=== PATIENT | female | born 1945 | race African-American/Black ===

== ENCOUNTER 2025-01-23 00:04 | Inpatient (IN) | payer MEDICARE, SELFPAY ==
[2025-01-23] VITALS (20 sets, daily range): BP systolic 105–146; BP diastolic 45–72; PULSE 79–121; RESP 13–19; TEMP 36.9–38.3; O2SAT 92–98; BMI 28.3
--- NOTE | 2025-01-23 | ECG_ITS ---
Test Reason : WEAKNESS Blood Pressure : */* mmHG Vent. Rate : 102 BPM Atrial Rate : 102 BPM P-R Int : 152 ms QRS Dur : 88 ms QT Int : 362 ms P-R-T Axes : 59 -39 26 degrees QTcB Int : 471 ms Sinus tachycardia with Premature atrial complexes Left axis deviation Minimal voltage criteria for LVH, may be normal variant ( Husam product ) Abnormal ECG No previous ECGs available Referred By: Joe Martinez Electronically Signed By: OTILIO VELA MD
--- NOTE | ~2025-01-23 | XR_ITS ---
CLINICAL HISTORY: fever CHEST X-RAY FRONTAL VIEW COMPARISON: None provided. FINDINGS: A single frontal view of the chest was performed. Cardiac silhouette is accentuated by the portable technique. There is calcification within the thoracic aortic arch. The left lower lung is difficult to accurately assess due to the overlying heart shadow and bony structures. Faint increased density is noted laterally within the left lower lung. An infiltrate is not excluded. CT scan of the chest in the ER is advised for a more accurate assessment. What are thought to represent 2 subcentimeter overlapping calcified granulomas are noted in the right lower lung. Right lung is otherwise unremarkable. No pleural effusion. No pneumothorax. IMPRESSION: 1. Faint increased density is noted laterally within the left lower lung. An infiltrate is not excluded. CT chest in the ER is advised for a more accurate assessment. This document has been electronically signed by: Shaan Alarcon M.D. on 01/23/2025 02:05:31
--- NOTE | ~2025-01-23 | CT_ITS ---
CLINICAL HISTORY: fever, source unclear. Dialysis patient CT ABDOMEN AND PELVIS WITHOUT CONTRAST COMPARISON: Chest x-ray 01/22/2025. FINDINGS: Images of the lower lungs demonstrate mild scattered atelectatic changes bilaterally. There is no focal infiltrate in the left lower lung, as was questioned on the prior chest x-ray study. There are mild bronchiectatic changes bilaterally. A focal 2.7 cm fluid collection is noted within the soft tissues of the left breast on axial image 33. Small hiatal hernia is noted. Distal esophagus and stomach are underdistended which precludes accurate assessment. Lack of IV contrast lowers the sensitivity of the exam. No focal liver lesion. Liver is enlarged and measures 18.3 cm on coronal image 40. Cholelithiasis is noted, for example seen on axial image 303 of series 4. Apparent tiny area of high attenuation is noted in association with the common bile duct, seen only on axial image 317. Choledocholithiasis will need to be excluded. Apparent mild fullness of the pancreatic head is noted on axial image 40. No CT evidence of acute pancreatitis. The spleen is unremarkable. Thickening of the adrenal glands is noted. A few subcentimeter bilateral renal calculi are noted without hydronephrosis. No calculi in the ureters and urinary bladder. A 1.6 cm lesion in the left kidney measures above water density and is seen on axial image 349. This is nonspecific but might represent a proteinaceous cyst. A few left-sided renal cysts are suspected, for example measuring 2.1 cm on axial image 392. Urinary bladder is significantly underdistended which limits accurate assessment for wall thickening. Mild stranding is noted adjacent to the anterior aspect of the urinary bladder as seen on axial image 728. Correlation with urinalysis is advised. 3.4 cm left ovarian cystic lesion is noted on axial image 633. Uterus and adnexa are otherwise unremarkable. Calcific plaque is noted in the abdominal aorta. No evidence of an abdominal aortic aneurysm. No evidence of a bowel obstruction. No free air. No pericolonic inflammation. Colonic diverticula are noted without evidence of acute diverticulitis. Appendix is not definitively visualized. No lymphadenopathy or loculated fluid collection. No evidence of a bowel containing hernia. Bone windows demonstrate degenerative changes in the hips and visualized spine. IMPRESSION: 1. Mild atelectasis in the lower lungs. No focal infiltrate in the left lung, as was questioned on the prior chest x-ray study. 2. Cholelithiasis. An apparent tiny area of high attenuation is noted in association with the common bile duct, seen on only 1 image. Choledocholithiasis will need to be excluded. Follow-up nonurgent MRCP study is advised. 3. Apparent mild fullness of the pancreatic head is noted. Assessment is difficult due to the lack of IV contrast. This can be further assessed at the time of MRCP. 4. A 1.6 cm lesion in the left kidney measures above water density and is nonspecific but might represent a proteinaceous cyst. A follow-up nonurgent CT kidneys, without and with contrast, is advised to exclude a solid lesion. 5. Bilateral renal calculi without hydronephrosis. No calculi in the ureters and urinary bladder. 6. Mild stranding is noted adjacent to the anterior portion of the urinary bladder. Correlation with urinalysis is advised to exclude a urinary tract infection/cystitis. 7. A 3.4 cm left ovarian cystic lesion is noted. A follow-up nonurgent pelvic ultrasound is advised. 8. No evidence of a bowel obstruction or free air. No pericolonic inflammation. 9. A focal 2.7 cm fluid collection is noted within the soft tissues of the left breast. This is of uncertain age and significance, but might be related to a previous procedure. Correlation with patient history is advised. 10. Additional findings are detailed above. This document has been electronically signed by: Shaan Alarcon M.D. on 01/23/2025 03:54:18
--- NOTE | ~2025-01-23 | MR_ITS ---
CLINICAL HISTORY: ?choledocolithiasis, pancreatic fulllness on CT --- Additional Notes or Special Instructions: ESRD, non-contrast MRCP without gadolinium Comparison: CT/SR - CT ABDOMEN PELVIS WO IV CON - 01/23/25 02:21 EDT Findings: No bile duct dilatation or choledocholithiasis. Common bile duct 4 mm diameter. There are multiple dependent stones within the gallbladder. Normal anatomy of the pancreatic duct. No dilatation of the duct or filling defects. No peripancreatic edema. No abnormal signal seen within the pancreas. Symmetric bilateral perinephric stranding present. There are 3 cysts within the left kidney, one measuring 1.2 cm in diameter, another measuring 2.5 cm in diameter, and a 3rd lesion in the superior kidney measuring 1.8 cm. Both kidneys are mildly atrophic. There is no hydronephrosis. The spleen is normal in size. No focal liver lesion seen. Liver is enlarged globally. Incidental note of 3.0 x 2.5 cm duodenal diverticulum emanating from the 3rd portion of the duodenum. There is a cystic lesion in the region of the left ovary measuring 3.4 x 3.2 cm which appears simple without internal septations or solid nodules. IMPRESSION: 1. No choledocholithiasis. 2. Cholelithiasis. 3. Normal appearance of the pancreas. 4. 3.4 cm simple appearing cystic lesion in the region of the left ovary. 5. There are 3 left renal cysts. This document has been electronically signed by: Saul Loeng MD on 01/23/2025 21:00:27
--- NOTE | 2025-01-23 00:16 | ED_ITS ---
HPI - General Adult General Chief complaint: Weakness Stated complaint: increased weakness , 1x dialysis Time Seen by Provider: 01/23/25 00:16 History of Present Illness ED Provider: Juan LIU narrative: The patient is a 79-year-old woman with a history hypertension, hyperlipidemia, type 2 diabetes, end-stage renal disease on hemodialysis (Tuesdays, , and Saturdays), and a history of breast cancer. The patient's daughter called 911 tonight because she felt that the the patient seemed very weak and shaky. The patient had dialysis yesterday on Monday. Apparently she seemed relatively stable at dialysis. The daughter thinks that she might has been somewhat weak and tired yesterday evening but the daughter could not identify any definite problem. This morning the patient was sleeping peacefully and the daughter went to work. Tonight when the daughter got home she was concerned that the daughter seemed weak and shaky and called 911. The patient does not have any specific complaints. She admits to feeling weak. She denies headache. She denies chest pain. She denies shortness of breath. There has been no significant cough. She denies abdominal pain. No urinary symptoms. She says she rarely urinates. Related Data Allergies Allergy/AdvReac Type Severity Reaction Status Date / Time No Known Allergies Allergy Verified 01/23/25 00:22 Review of Systems 2 Review of Systems: Yes all other systems are reviewed and are negative [facility] [place] Past Medical History Medical History (Updated 01/23/25 @ 06:27 by Noemí Brewster PA-C) Tobacco use disorder History of breast cancer ESRD (end stage renal disease) on dialysis T2DM (type 2 diabetes mellitus) HLD (hyperlipidemia) HTN (hypertension) Social History Social History Patient Tobacco Use Status: Current everyday Tobacco user Smoked in Last 30 Days: Yes Use of substances other than those prescribed or required for medical reasons: No Advance Directives: No Advance Directives Information Provided: Yes Nutrition Risks: No Nutritional Risk Physical Exam ED Vital Signs: Vital Signs - 24 hr 01/23/25 00:16 01/23/25 00:26 01/23/25 00:29 Temperature 101.0 F H 101.0 F H Pulse Rate 106 H 106 H 100 Respiratory Rate 16 16 13 Blood Pressure 127/51 L 127/51 L 105/48 L Pulse Oximetry 96 96 Oxygen Delivery Method Room Air Room Air Oxygen Flow Rate 09/11/25 00:43 01/23/25 01:23 01/23/25 01:32 Temperature 99.2 F Pulse Rate 100 95 Respiratory Rate 16 19 Blood Pressure 127/61 122/51 L Pulse Oximetry 95 92 Oxygen Delivery Method Room Air Oxygen Flow Rate 01/23/25 01:44 01/23/25 01:44 01/23/25 01:59 Temperature Pulse Rate 92 92 85 Respiratory Rate 18 Blood Pressure 137/54 L 137/51 L 130/50 L Pulse Oximetry Oxygen Delivery Method Oxygen Flow Rate 01/23/25 02:10 01/23/25 02:38 01/23/25 02:43 Temperature 99.1 F 99.1 F Pulse Rate 81 86 86 Respiratory Rate 15 18 Blood Pressure 129/48 L 111/45 L 135/55 L Pulse Oximetry 98 95 Oxygen Delivery Method Nasal Cannula Room Air Oxygen Flow Rate 2 01/23/25 02:51 01/23/25 03:13 01/23/25 03:48 Temperature Pulse Rate 86 84 79 Respiratory Rate Blood Pressure 120/50 L 112/45 L 125/52 L Pulse Oximetry Oxygen Delivery Method Room Air Room Air Oxygen Flow Rate 01/23/25 03:56 01/23/25 05:34 Temperature 98.5 F Pulse Rate 81 Respiratory Rate 14 Blood Pressure 119/50 L Pulse Oximetry 95 Oxygen Delivery Method Room Air Oxygen Flow Rate BMI result Body Mass Index 28.3 Const Other: The patient is a well-developed but chronically ill-appearing 79-year-old. She is awake and alert. She has a vague demeanor but does not seem frankly confused. She does not appear overtly uncomfortable or in distress. HENMT Other: The face is symmetrical. ?Mucous membranes moist. Eyes Other: Pupils are round equal, conjunctivae are clear, extraocular movements intact General: appearance normal, both eyes and all related structures Neck Other: No apparent neck swelling or asymmetry. No significant tenderness. The neck seems supple. No nuchal rigidity. Resp Other: No obvious increased work of breathing. There were possibly some very mild crackles at the left base. No jason wheezing. Breath sounds were equal. Cardio Other: No murmur heard Rate: tachycardic Rhythm: regular rhythm Heart sounds: S1 normal heart sound present and S2 normal heart sound present GI Other: The abdomen is soft and nontender Skin Other: The patient has a dialysis fistula in her left upper arm. Skin is otherwise unremarkable. Neuro Other: The patient is awake and alert with a fairly clear mental status although she seems fatigued. Cranial nerves are grossly intact. She seems to have symmetrical tone in her extremities. No obvious lateralizing findings. Extrem Other: There is a dialysis shunt in the left upper arm. No significant peripheral edema. Medications Administered Generic Name Dose Route Start Last Admin Trade Name Freq PRN Reason Stop Dose Admin Heparin Sodium (Porcine) 5,000 unit 01/23/25 06:30 01/23/25 06:32 Heparin Sodium,Porcine 5,000 Unit/Ml Vial SUBCUT 5,000 unit Q12H SASKIA Administration Discontinued Medications Generic Name Dose Route Start Last Admin Trade Name Freq PRN Reason Stop Dose Admin Ceftriaxone Sodium 2 gm 01/23/25 01:24 01/23/25 01:38 Ceftriaxone Sodium 2 Gm Vial IVPUSH 01/23/25 01:25 2 gm ONCE ONE Administration Acetaminophen 1,000 mg in 100 mls @ 400 mls/hr 01/23/25 00:40 01/23/25 01:03 Ofirmev IV 01/23/25 00:54 Infused ONCE ONE Infusion Sodium Chloride 1,000 mls @ 999 mls/hr 01/23/25 00:45 01/23/25 02:40 Ns IV 01/23/25 01:45 Infused .Q1H1M SASKIA Infusion Azithromycin 500 mg/ Sodium 250 mls @ 125 mls/hr 01/23/25 03:24 01/23/25 06:25 Chloride IV 01/23/25 05:23 Infused ONCE ONE Infusion Medical Decision Making Medical Decision Making [facility] Narrative: The patient is a 79-year-old woman who was a dialysis patient. She gets dialysis on Tuesdays, , and Saturdays. The patient's daughter called 911 tonight because the patient seemed much weaker than usual and possibly having some shaking chills. On arrival here the patient was found to have a rectal temperature of 101.0 degrees. She did not have any obvious signs of infection on exam or by history and I thought initially that this might be a viral syndrome. Blood cultures were obtained and she was given IV acetaminophen. Labs were sent. Her initial lactate came back at 2.1. At that point I had concerns for the possibility of sepsis. She was given empiric antibiotics, 2 g of ceftriaxone. Her chest x-ray was read as possibly suggesting a left lower lobe pneumonia and so she was also given 500 mg of IV azithromycin. Given that there had not been a lot of history of cough I was not certain that pneumonia was in fact the diagnosis. We did a bladder scan initially to see if there was any likelihood that we could obtain urine by catheterization. A bladder scan did not suggest he had any significant amount of urine. The patient was given 1 L of IV fluids in addition to antibiotics. A CT scan of the abdomen and pelvis was done to look for a possible source of infection. This imaging included the lower lung to. The radiologist who read the CT felt that the findings in the left lower lung was more consistent with atelectasis than a pneumonia (although I felt she had some crackles at the left base). There was some volume of urine apparent on the CAT scan. At that point I ordered a straight catheterization to obtain a urine sample. The urine sample is potentially consistent with a urinary tract infection although it is possible she could simply have an abnormal urinalysis because of her infrequent urination. In any event the patient was treated with the antibiotics and IV fluids. A repeat lactate was normal at 1.7. The CT scan of the abdomen and pelvis showed multiple equivocal findings of uncertain significance. The patient will be admitted to the medical service for further management. Lab Data 01/23/25 00:55 01/23/25 00:55 Labs: Lab Results 01/23/25 01/23/25 01/23/25 Range/Units 00:55 03:23 04:31 WBC 8.1 (4.8-10.8) X10*3/uL RBC 3.64 L (4.20-5.50) X10*6/uL Hgb 11.4 L (12.0-16.0) g/dl Hct 32.1 L (37.0-47.0) % MCV 88.2 (80.0-98.0) fL MCH 31.3 (27.0-33.0) pg MCHC 35.5 H (31.0-35.0) g/dl RDW 14.4 (11.0-16.0) % Plt Count 175 (160-400) X10*3/uL MPV 9.5 (9.4-12.3) fL Immature Gran % (Auto) 0.4 (0.0-0.4) % Neut % (Auto) 78.2 H (45-73) % Lymph % (Auto) 9.6 L (20-40) % [place] % (Auto) 10.7 (2-11) % Eos % (Auto) 0.7 (0-4) % Baso % (Auto) 0.4 (0-2) % Lymph # (Auto) 0.8 L (1.2-4.9) X10*3/uL [place] # (Auto) 0.9 (0.1-1.2) X10*3/uL Eos # (Auto) 0.1 (0.0-0.4) X10*3/uL Baso # (Auto) 0.0 (0.0-0.2) X10*3/uL Abs Immat Gran (auto) 0.03 (0.00-0.03) X10*3/uL Absolute Neuts (auto) 6.4 (2.0-8.3) x10*3/uL Absolute Nucleated RBC 0.000 (0.0-0.012) X10*3/uL Nucleated RBC % (auto) 0.0 (0.0-0.2) /100WBC PT 11.2 (10.9-12.4) SEC INR 1.0 (0.9-1.1) Sodium 138 (135-145) mmol/L Potassium 3.9 (3.3-5.1) mmol/L Chloride 96 (96-108) mmol/L Carbon Dioxide 26 (22-29) mmol/L Anion Gap 20 (12-20) BUN 43 H (9-16) mg/dL Creatinine 9.63 H* (0.5-1.4) mg/dL Estim Creat Clear Calc 4.5 Estimated GFR 4 Random Glucose 324 H (60-115) mg/dL Lactic Acid 2.1 H* (0.5-2.0) mmol/L Lactic Acid F/U @ 2Hr 1.7 (0.5-2.0) mmol/L Calcium 8.5 (8.4-10.2) mg/dL Magnesium 1.9 (1.6-2.6) mg/dL Total Bilirubin 0.6 (0.0-1.0) mg/dL AST 16 (5-31) U/L ALT 16 (0-31) U/L Alkaline Phosphatase 76 (39-117) U/L C-Reactive Protein 2.84 H (< or = 0.50) mg/dL Total Protein 7.0 (6.5-8.0) g/dL Albumin 3.7 (3.5-5.0) g/dL Urine Color Yellow Urine Appearance Turbid Urine pH 6.5 (5.0-9.0) Ur Specific [place] 1.015 (1.005-1.025) Urine Protein 300 (3+) H (Neg-Trace) mg/dL Urine Glucose (UA) 500 H (Negative) mg/dL Urine Ketones Negative (Negative) mg/dL Urine Blood Small (1+) H (Negative) Urine Nitrite Negative (Negative) Ur Leukocyte Esterase Large (3+) H (Negative) Urine RBC 0-2 (0-2) /HPF Urine WBC >50 (0-5) /HPF Ur Squamous Epith Cells >20 (0-2) /HPF Urine Bacteria 2+ (None Seen) Hyaline Casts 3-5 (0-2) /LPF Urine Yeast Present Influenza Type A (PCR) NEGATIVE (Negative) Influenza Type B (PCR) NEGATIVE (Negative) RSV RNA Qual (PCR) NEGATIVE (Negative) SARS-CoV-2 RNA (RT-PCR) NEGATIVE (Negative) Independent Interpretation I performed an independent interpretation of an: EKG Interpretation: EKG at 00:37 shows sinus tachycardia at 102 beats per minute. There is a left axis deviation. No definite acute ischemic changes. No old EKGs available for comparison. Discharge Plan Discharge Clinical Impression: Fever, Weakness, Abnormal urinalysis, ESRD (end stage renal disease) on dialysis Patient Disposition: Admitted As Inpatient
[2025-01-23 01:02] LABS: MANUAL DIFF FLAG NO
[2025-01-23 01:04] LABS: Hematocrit 32.1 % (37.0-47.0); Hemoglobin 11.4 g/dl (12.0-16.0); Imm Gran Abs Auto 0.03 X10*3/uL (0.00-0.03); Imm Gran Pct Auto 0.4 % (0.0-0.4); Lymphocytes Absolute Auto 0.8 X10*3/uL (1.2-4.9); Mean Corpuscular HGB Conc 35.5 g/dl (31.0-35.0); Mean Corpuscular Hemoglobin 31.3 pg (27.0-33.0); Mean Corpuscular Volume 88.2 fL (80.0-98.0); NRBC Abs Auto 0.000 X10*3/uL (0.0-0.012); NRBC Pct Auto 0.0 /100WBC (0.0-0.2); Platelet Count 175 X10*3/uL (160-400); Red Blood Count 3.64 X10*6/uL (4.20-5.50); White Blood Count 8.1 X10*3/uL (4.8-10.8)
[2025-01-23 01:10] LABS: INTERNATIONAL NORM RATIO 1.0 (0.9-1.1); Prothrombin Time 11.2 SEC (10.9-12.4)
[2025-01-23 01:17] LABS: Magnesium 1.9 mg/dL (1.6-2.6)
--- OUTSIDE RECORDS SUMMARY | 2025-01-23 01:21 | XMS_ITS | Clinical Summary ---
Author Organization [facility], Address [address] [place] [address] Phone Care Team Providers Care Exhibit Electrician Name Role Phone Teresa Scales Primary Care Provider [phone] Allergies No known active allergies Medications Cholecalciferol 125 MCG (5000 UT) tablet Take by mouth Activ e Dulaglutide (Trulicity) 4.5 MG/0.5ML solution auto-injector Inject under the skin Active amLODIPine (NORVASC) 10 MG tablet Take 10 mg by mouth 1 (one) time each day Active atorvastatin (LIPITOR) 20 MG tablet Take 20 mg by mouth 1 (one) time each day Active aspirin (ST KWAN) 81 MG EC tablet Take 81 mg by mouth 1 (one) time each day Active anastrozole (ARIMIDEX) 1 MG chemo tablet Take 1 mg by mouth 1 (one) time each day Swallow whole with a drink of water. Active clopidogrel (PLAVIX) 75 MG tablet Take 75 mg by mouth 1 (one) time each day Active famotidine (PEPCID) 20 MG tablet Take 20 mg by mouth in the morning and 20 mg in the evening. Active gabapentin (NEURONTIN) 100 MG capsule Take 100 mg by mouth 1 (one) time each day Active insulin lispro protamine-insul in lispro (HumaLOG 75-25) (75-25) 100 UNIT/ML suspension Inject under the skin 2 (two) times a day before meals Active hydrALAZINE 25 MG tablet Take 25 mg by mouth in the morning and 25 mg in the evening and 25 mg before bedtime. Active furosemide (LASIX) 40 MG tablet Take 40 mg by mouth in the morning and 40 mg in the evening. Active losartan (COZAAR) 50 MG tablet Take 50 mg by mouth 1 (one) time each day Active meclizine (ANTIVERT) 25 MG tablet Take 25 mg by mouth 3 (three) times a day if needed for dizziness Active polyethylene glycol (GLYCOLAX) 17 g packet Take 17 g by mouth 1 (one) time each day Active Multiple Vitamin (multivitamin) tablet Take 1 tablet by mouth 1 (one) time each day Active Cyanocobalamin (Vitamin B 12) 500 MCG tablet Take by mouth A ctive sevelamer carbonate (RENVELA) 0.8 g packet Take 0.8 g by mouth in the morning and 0.8 g at noon and 0.8 g in the evening. Take with meals. Active Active Problems Problem Noted Date Diagnosed Date Obese class II 04/18/2024 End stage renal disease 03/26/2024 Essential hypertension 03/26/2024 Carotid artery stenosis 03/26/2024 Type 2 diabetes mellitus without complication Encounters Date Type Department Care Team Description 01/21/2025 Treatment [facility], [address] [place] [address] Khanh Ramirez MD End stage renal disease; Dependence on renal dialysis; Type 2 diabetes mellitus with diabetic nephropathy 01/16/2025 Orders Only [facility] [address] [address] Guillermo Guillory, 01/14/2025 Treatment [facility], [address] [place] [address] Paluine Macdonald FNP-C End stage renal disease; Dependence on renal dialysis 01/09/2025 Orders Only [facility] [address] [address] Guillermo Guillory, 01/07/2025 Orders Only [facility] [address] [address] Guillermo Guillory, 01/04/2025 Treatment [facility] [address] [place] [address] Pauline Macdonald, CLINCHING MACHINE OPERATOR-C End stage renal disease; Dependence on renal dialysis 01/02/2025 Treatment [facility] [address] [place] [address] Khanh Ramirez MD End stage renal disease; Dependence on renal dialysis; Type 2 diabetes mellitus with diabetic nephropathy 01/02/2025 Orders Only [facility] [address] [address] Guillermo Guillory, DO 12/26/2024 Orders Only [facility] [address] [address] Guillermo Guillory, DO 12/26/2024 Treatment [facility], [address] [place] [address] Khanh Ramirez MD End stage renal disease; Dependence on renal dialysis; Type 2 diabetes mellitus with diabetic nephropathy 12/19/2024 Orders Only [facility] [address] [address] Guillermo Guillory, DO 12/17/2024 Treatment [facility], [address] [place] [address] Pauline Macdonald, CLINCHING MACHINE OPERATOR-C End stage renal disease; Dependence on renal dialysis 12/12/2024 Orders Only [facility] [address] [address] Guillermo Guillory, DO 12/05/2024 Orders Only [facility] [address] [address] Guillermo Guillory, DO 11/30/2024 Orders Only [facility] [address] [address] Guillermo Guillory, DO 11/22/2024 Documentation Only [facility], [address] [place] [address] Gisel Yin [place] 11/21/2024 Orders Only [facility] [address] [address] Guillermo Guillory, DO 11/21/2024 Treatment [facility] [address] [place] [address] Khanh Ramirez MD End stage renal disease; Dependence on renal dialysis; Type 2 diabetes mellitus with diabetic nephropathy 11/19/2024 Treatment [facility] [address] [place] [address] Pauline Macdonald, CLINCHING MACHINE OPERATOR-C End stage renal disease; Dependence on renal dialysis 11/14/2024 Orders Only [facility] [address] [address] Guillermo Guillory, DO 11/12/2024 Treatment [facility] [address] [place] [address] Pauline Macdonald, CLINCHING MACHINE OPERATOR-C End stage renal disease; Dependence on renal dialysis 11/07/2024 Orders Only [facility] [address] [place] [address] Guillermo Guillory, DO 10/31/2024 Orders Only [facility] [address] [address] Guillermo Guillory, DO 10/29/2024 Orders Only [facility] [address] [address] Guillermo Guillory, DO 10/29/2024 Treatment [facility] [address] [place] [address] Pauline Macdonald, CLINCHING MACHINE OPERATOR-C End stage renal disease; Dependence on renal dialysis; Type 2 diabetes mellitus with diabetic nephropathy 10/26/2024 Treatment [facility] [address] [place] [address] Pauline Macdonald, HARJINDER End stage renal disease; Dependence on renal dialysis; Type 2 diabetes mellitus with diabetic nephropathy 10/24/2024 Treatment [facility], [address] [place] [address] Khanh Ramirez MD End stage renal disease; Dependence on renal dialysis; Type 2 diabetes mellitus with diabetic nephropathy 10/24/2024 Orders Only [facility] [address] [place] [phone] Guillermo Guillory DO from Last 3 Months Social History Tobacco Use Types Packs/Day Years Used Date Smoking Tobacco: Former Cigarettes Smokeless Tobacco: Never Tobacco Cessation:Counseling Given: Not Answered Alcohol Use Standard Drinks/Week Comments Never 0 (1 standard drink = 0.6 oz pur e alcohol) Comments Unknown Sex and Gender Information Value Date Recorded Sex Assigned at Not on file Legal Sex Female 10:33 AM EST Gender Identity Not on file Sexual Orientation Not on file Last Filed Vital Signs Vital Sign Reading Time Taken Comments Blood Pressure 137/80 04/19/2024 8:30 AM EST Pulse 106 04/19/2024 8:30 AM EST Temperature 36.5 C (97.7 F) 04/19/2024 8:30 AM EST Respiratory Rate 18 04/19/2024 8:30 AM EST Oxygen Saturation 92% 04/19/2024 8:30 AM EST Inhaled Oxygen Concentration - - Weight 97.1 kg (214 lb) 04/19/2024 8:30 AM EST Height 162.6 cm (5' 4 ) 04/19/2024 8:30 AM EST Body Mass Index 36.73 04/19/2024 8:30 AM EST Plan of Treatment Upcoming Encounters Date Type Department Care Team (Late st Contact Info) Description 02/07/2025 10:00 AM EDT Procedure visit [facility] [address] [place] [id number] Health Maintenance Due Date Last Done Comments Pneumococcal Vaccine: 50+ Ye ars (1 of 2 - PCV) 1964 Hepatitis B Vaccine (1 of 5 - Risk Dialysis 4-dose series) 1965 Diabetes: Ophthalmology Exam 03/26/2024 Diabetes: Pedal Pulse Checked 03/26/2024 Diabetes: Sensory Foot Exam 03/26/2024 Diabetes: Visual Foot Exam 03/26/2024 Influenza Vaccine (#1) 2025 Diabetes: Hemoglobin A1C 03/02/2025 025, 08/29/2024, 05/30/2024 Procedures Procedure Name Priority Date/Time Associated Diagnosis Comments SPECTRA SARAH LAB RESULTS Routine 01/16/2025 HD KINETICS Routine 01/16/2025 CHEMISTRY Routine 01/16/2025 POST CHEMISTRY Routine 01/16/2025 HEMATOLOGY Routine 01/16/2025 HEMATOLOGY Routine 01/09/2025 CHEMISTRY Routine 01/07/2025 IMMUNO CHEMISTRY Routine 01/02/2025 CHEMISTRY Routine 01/02/2025 HEMATOLOGY Routine 01/02/2025 CHEMISTRY Routine 01/02/2025 HEMATOLOGY Routine 12/26/2024 SPECTRA SARAH LAB RESULTS Routine 12/19/2024 HD KINETICS Routine 12/19/2024 POST CHEMISTRY Routine 12/19/2024 CHEMISTRY Routine 12/19/2024 HEMATOLOGY Routine 12/19/2024 HEMATOLOGY Routine 12/12/2024 HEMATOLOGY Routine 12/05/2024 SPECIAL CHEMISTRY Routine 11/30/2024 CHEMISTRY Routine 11/30/2024 IMMUNO CHEMISTRY Routine 11/30/2024 HEMATOLOGY Routine 11/30/2024 CHEMISTRY Routine 11/30/2024 HEMATOLOGY Routine 11/21/2024 SPECTRA SARAH LAB RESULTS Routine 11/14/2024 HD KINETICS Routine 11/14/2024 POST CHEMISTRY Routine 11/14/2024 CHEMISTRY Routine 11/14/2024 HEMATOLOGY Routine 11/14/2024 HEMATOLOGY Routine 11/07/2024 IMMUNO CHEMISTRY Routine 10/31/2024 CHEMISTRY Routine 10/31/2024 HEMATOLOGY Routine 10/31/2024 CHEMISTRY Routine 10/31/2024 CHEMISTRY Routine 10/29/2024 HEMATOLOGY Routine 10/24/2024 from Last 3 Months Results * HD KINETICS (01/16/2025) Only the most recent of3 resultswithin the time period is included. % Urea Reduction 78 65 - 80 % Explorys 01/16/2025 01/17/2025 9:2 5 AM EDT Narrative CARMENZA - 01/17/2025 Unless otherwise specified, test(s) performed at: [facility], [address] [place] [id number] PRESS SET UP PERSON: Dale Menard M.D. For any questions, please call customer service at FREQUENCY:OTHER Resulting Agency Comment Specimen source: Plasma Guillermo [facility] LAB BLOOD ORDERABLES Final Resu lt Performing Organization Address [facility] de Phone Number Float: [place] See order comments or contact performing lab Unknown, [place] * POST CHEMISTRY (01/16/2025) Only the most recent of3 resultswithin the time period is included. BUN Post Dialysis 11 6 - 19 mg/dL [facility] 01/16/2025 01/17/2025 9:2 5 AM EDT Narrative SPECTRAE - 01/17/2025 Unless otherwise specified, test(s) performed at: [facility], [address] [place], [place] [id number] PRESS SET UP PERSON: Dale Menard M.D. For any questions, please call customer service at FREQUENCY:OTHER Resulting Agency Comment Specimen source: Plasma [facility] BLOOD ORDERABLES Final Resu Performing Organization Address [facility] de Phone Number Float: [place] See order comments or contact performing lab Unknown, [place] * (ABNORMAL) HEMATOLOGY (01/16/2025) Only the most recent of13 resultswithin the time period is included. Hemoglobin 11.6(L) 12.0 - 16.0 g/dL [facility] Hemoglobin x 3 34.8(L) 36.0 - 48.0 % [facility] 01/16/2025 01/17/2025 9:0 1 AM EDT Narrative SPECTRAE - 01/17/2025 Unless otherwise specified, test(s) performed at: [facility], [address] [place] [id number] PRESS SET UP PERSON: Dale Menard M.D. For any questions, please call customer service at FREQUENCY:OTHER Resulting Agency Comment Specimen source: Blood Dapt LAB BLOOD ORDERABLES Final Resu Performing Organization Address [facility]/State/ZIP Co de Phone Number [facility] See order comments or contact performing lab Unknown, [place] * (ABNORMAL) Spectrae Chemistry (01/16/2025) Only the most recent of11 resultswithin the time period is included. BUN 50(H) 6 - 19 mg/dL [facility] 01/16/2025 01/17/2025 10: 08 AM EDT Narrative SPECTRAE - 01/17/2025 Unless otherwise specified, test(s) performed at: [facility], [address] [place] [address] PRESS SET UP PERSON: Dale Menard M.D. For any questions, please call customer service at FREQUENCY:OTHER Resulting Agency Comment Specimen source: Serum Guillermo Guillory DO LAB BLOOD ORDERABLES Final Resu lt Performing Organization Address City/[facility] [[email or web address]] Co de Phone Number [facility] See order comments or contact performing lab Unknown, [place] * Spectra SARAH Lab Results (01/16/2025) Only the most recent of3 resultswithin the time period is included. Pathologist [facility] WSTDKT/V 2.6 [facility] eKt/V Gotch 1.60 [facility] e Center eKt/V ([place]) 1.56 [facility] Center PCR 59.95 [facility] Center spKt/V (Daugirdas II) 1.78 [facility] Center nPCR_HD 0.99 [facility] Center spKt/V Gotch 1.84 [facility] eKdrt/V 1.60 [facility] eNPCR 0.93 [facility] 01/16/2025 01/16/2025 [facility] Ordering Provider LAB BLOOD ORDERABLES Final Result [facility] Contact Performing lab Unknown, [place] * IMMUNO CHEMISTRY (01/02/2025) Only the most recent of3 resultswithin the time period is included. Hep B Surface Ag Negative Negative [facility] 01/02/2025 01/03/2025 10: 14 AM EDT Narrative Resulting Agency Comment Specimen source: Serum Guillermo Guillory [facility] LAB BLOOD ORDERABLES Final Resu lt Float: [place] See order comments or contact performing lab Unknown, [place] * (ABNORMAL) SPECIAL CHEMISTRY (11/30/2024) Hemoglobin A1C 6.1(H) 4.8 - 5.9 % [facility] 11/30/2024 12/03/2024 9:2 1 AM EDT Narrative SPECTRAE - 12/03/2024 Unless otherwise specified, test(s) performed at: [facility] [address] PRESS SET UP PERSON: Dale Menard M.D. For any questions, please call customer service at FREQUENCY:MONTHLY Resulting Agency Comment Specimen source: Blood Guillermo Guillroy LAB BLOOD BANK TEST ORDERABLES Final Result Performing Organization Address City/[facility]/ZIP Co de Phone Number Float: [place] See order comments or contact performing lab Unknown, [place] from Last 3 Months Insurance [employer] MCR Adv PPO [phone]) Care Teams Exhibit Electrician Relationship Specialty Start Date End Date [place] Kinney [address] [id number] PCP - General 03/27/24
--- OUTSIDE RECORDS SUMMARY | 2025-01-23 01:21 | XMS_ITS | Encounter Summary ---
Author Organization [facility] Address [address] [place] [address] Phone Care Team Providers Care Cop Examiner Name Role Phone Teresa Scales Primary Care Provider [phone] Encounter Details Date Type Department Care Team (Late st Contact Info) Description 11/22/2024 Documentation Only [facility] [address] [place] [address] Gisel Yin [place] [address] [place] [phone] Social History Tobacco Use Types Packs/Day Years Used Date Smoking Tobacco: Former Cigarettes Smokeless Tobacco: Never Alcohol Use Standard Drinks/Week Comments Never 0 (1 standard drink = 0.6 oz pur e alcohol) Comments Unknown Sex and Gender Information Value Date Recorded Sex Assigned at Not on file Legal Sex Female 10:33 AM EST Gender Identity Not on file Sexual Orientation Not on file documented as of this encounter Plan of Treatment Upcoming Encounters Date Type Department Care Team (Late Contact Info) Description 02/07/2025 10:00 AM EDT Procedure visit [facility] - [facility] [address] [place] [address] documented as of this encounter Visit Diagnoses Not on filedocumented in this encounter Care Teams Cop Examiner Relationship Specialty Start Date End Date Teresa Scales [address] [facility] [address] [place], [place] [id number] PCP - General 03/27/24 documented as of this encounter
--- OUTSIDE RECORDS SUMMARY | 2025-01-23 01:21 | XMS_ITS | Encounter Summary ---
Author Organization [facility], Address [address] [place] [address] Phone Care Team Providers Care Transitional Studies Instructor Name Role Phone Teresa Scales Primary Care Provider [phone] Encounter Details Date Type Department Care Team (Late st Contact Info) Description 01/21/2025 Treatment [facility], [address] [place] [address] Naya Juarez MD [address] [place] [address] [place] [id number] End stage renal disease; Dependence on renal dialysis; Type 2 diabetes mellitus with diabetic nephropathy Social History Tobacco Use Types Packs/Day Years [...] on file documented as of this encounter Miscellaneous Notes * Dialysis Note - Naya Juarez MD - 01/21/2025 12:00 AM EDT Patient: Alessandra King : 1945 Note Type: Dialysis Rounds-Comp Service Date: 01/21/2025 This patient was personally seen [id number] for a complete visit as part of routine monthly dialysis care for end stage renal disease. Primary cause of renal failure: E11.21 - Type 2 diabetes mellitus with diabetic nephropathy Attending Glass Production Machine Operator: NAYA JUAREZ MD Dialysis Location: [facility] Schedule: Shift: 2 OVERVIEW COMMENTS: S/P AVG placement. Doing well. [facility] MEDICATIONS [facility] anastrozole 1 mg tablet Take 1 tablet by mouth once a day. [.] aspirin 81 mg tablet,delayed release (DR/EC) 1 tablet by mouth twice a day. [.] atorvastatin 20 mg tablet Take 1 tablet by mouth every night. [.] clopidogrel 75 mg tablet Take 1 tablet by mouth once a day. famotidine 20 mg tablet 1 tablet by mouth every morning. gabapentin 100 mg capsule Take 1 capsule by mouth every night. Humalog Mix 75-25(U-100)Insuln 100 unit/mL (75-25) suspension 15 unit subcutaneously once a day. [in am] Humalog Mix 75-25(U-100)Insuln 100 unit/mL (75-25) suspension 5 unit subcutaneously once a day. [in pm] lorsartan 100 tab Take 1/2 tablet by mouth as directed. Miralax 17 gram powder in packet 1 packet by mouth once a day. multivitamin tablet 1 tablet by mouth once a day. Sevelamer Carbonate Powder 2.4 g packet Take 2 Packet By Mouth Three times a day With Meals. Trulicity 4.5 mg/0.5 mL pen injector 1 pen injector subcutaneously once a week. [on .] Vitamin D3 125 mcg (5,000 unit) tablet 1 tablet by mouth once a day. Current MedReview Allergies Allergen: No Known Allergies Allergen: No Known Drug Allergies Allergen: No Known Food Allergies DIALYSIS PRESCRIPTION Treatment Data Treatment Date: 01/21/2025 started at: 10:22 AM Dialysate / Machine Temp (prescribed): 36.0*C Dialysate / Machine Temp (actual): 36.0*C BFR (prescribed): 450 BFR (actual): 450 DFR (prescribed): Manual 800 DFR (actual): 800 Prescribed Time: 04:00 EDW (kg): 88.0 Dialyzer: FX CorAL 60 Dialysate: 2.0 K, 2.50 Ca, 1.0 Mg, 100 Dextrose ([id number]) Sodium: 137 Bicarb: 35 Pre Dialysis Vitals Pre BP Sit: 161/75 Pre Wt (kg): 90.8 EDW Deviation (kg): 2.8 Temp: 98.1*F Current Dialysis Vitals BP Sit: 134/63 AP/LABOURERS: 190/236 Pulse: 95 TREATMENT MEDICATIONS ORDERS Heparin Sodium (Porcine) 1,000 Units/mL Systemic 500 units IVP Every Treatment 03/16/2024 - 03/15/2025 Heparin Sodium (Porcine) 1,000 Units/mL Systemic 2000 units IVP Every Treatment 03/16/2024 - 03/15/2025 Iron Sucrose (Venofer) 50 mg IVP 1X Week During Dialysis 09/05/2024 - 09/04/2025 Vitamin D (Calcitriol) Oral 0.75 mcg ORAL Every Treatment 10/10/2024 - 10/09/2025 BP AND FLUID ASSESSMENT Post BP Sit 132/58 - 01/18/2025 108/56 - 01/16/2025 124/65 - 01/14/2025 Post Wt (kg) 88.5 - 01/18/2025 88.2 - 01/16/2025 88.0 - 01/14/2025 EDW (kg) 88.0 - 01/18/2025 88.0 - 01/16/2025 88.0 - 01/14/2025 Deviation (kg) 0.5 - 01/18/2025 0.2 - 01/16/2025 0.0 - 01/14/2025 ADEQUACY ASSESSMENT spKt/V (Daugirdas II) 1.78 (01/16/25) 1.74 (12/19/24) 1.94 (11/14/24) eKdrt/V 1.60 (01/16/25) 1.52 (12/19/24) 1.71 (11/14/24) % Urea Reduction 78 (01/16/25) 78 (12/19/24) 81 (11/14/24) BUN 50 (01/16/25) 41 (12/19/24) 48 (11/14/24) BUN Post Dialysis 11 (01/16/25) 9 (12/19/24) 9 (11/14/24) Creatinine 10.48 (01/02/25) 14.96 (11/30/24) 10.99 (10/31/24) Bicarbonate (CO2) 25 (01/02/25) 22 (11/30/24) 24 (10/31/24) Sodium 141 (01/02/25) 139 (11/30/24) 143 (10/31/24) Missed Treatments 0 - Last 30 days 3 - Last 60 days Most recently missed on 11/28/2024 ACCESS ASSESSMENT AVGraft Synthetic - Standard (PTFE) Left Upper Arm Active (In Use) - 06/13/2024 Placed - 05/17/2024 Access Flow 895 (01/14/25) 873 (12/28/24) 896 (12/14/24) ANEMIA ASSESSMENT Hemoglobin 11.6 (01/16/25) 11.6 (01/09/25) 10.6 (01/02/25) Iron Saturation (TSat) 45 (01/02/25) 54 (11/30/24) 49 (10/31/24) Ferritin 336 (01/02/25) 706 (11/30/24) 544 (10/31/24) Iron 104 (01/02/25) 119 (11/30/24) 117 (10/31/24) TIBC 233 (01/02/25) 222 (11/30/24) 241 (10/31/24) Reticulocyte Hemoglobin 32.7 (11/30/24) 34.1 (08/29/24) 34.5 (05/30/24) MCV 101 (11/30/24) 93 (08/29/24) 96 (05/30/24) BMM ASSESSMENT Calcium 8.9 01/02/25 8.7 11/30/24 8.9 10/31/24 Corrected Calcium 9.2 01/02/25 9.1 11/30/24 9.1 10/31/24 Phosphorus 5.9 01/02/25 6.7 11/30/24 6.8 10/31/24 Calcium Phosphorus Product 53 01/02/25 58 11/30/24 61 10/31/24 PTH 341 01/02/25 482 11/30/24 570 10/31/24 Vitamin D, 25-OH, Total 65.1 05/30/24 Magnesium 2.1 01/02/25 2.1 11/30/24 1.9 10/31/24 Alkaline Phosphatase 50 11/30/24 54 08/29/24 64 05/30/24 Aluminum ?5 05/30/24 NUTRITION ASSESSMENT Albumin 3.6 01/02/25 3.5 11/30/24 3.8 10/31/24 Potassium 4.1 01/07/25 3.9 01/02/25 5.1 11/30/24 eNPCR 0.93 01/16/25 0.76 12/19/24 0.91 11/14/24 Hemoglobin A1C 6.1 11/30/24 6.4 08/29/24 6.1 05/30/24 ADDITIONAL LABS WBC 5.96 (11/30/24) 5.65 (08/29/24) 5.38 (05/30/24) Cholesterol 122 (11/30/24) 122 (05/30/24) HDL 42 (11/30/24) 37 (05/30/24) LDL Direct 68 (11/30/24) 63 (05/30/24) Hepatitis B Surface Ab 33 (11/30/24) 96 (09/05/24) 15 (05/30/24) ADDITIONAL COMMENT COMMENTS: COMMENTS: Monthly Comprehensive Note Patient is stable Medications reviewed Physical Exam Vital signs: reviewed Lungs: clear Edema: none Impression 1. Adequacy: KT/V was assessed and the dialysis prescription was adjusted as needed. 2. Access: AVG working well 3. Hypertension: Blood pressure control and volume status are at goal. 4. Anemia: Labs reviewed and adjustments to regimen made according to anemia management protocol. 5. Mineral Bone Disease: Labs reviewed. Diet and medication adjustment as per protocol. 6. Nutrition: Labs reviewed. Dietary adjustments made in conjunction with retoucher. 7. Transplant: The patient is being evaluated for a kidney transplant. 07/09/24: stable, no issues reported, same HD Rx, AVG working with no issues, permcath to be removed 07/11: stable, same HD Rx, permcath successfully removed 07/16: stable same HD Rx, no issues with access 08/13: stable, no issues reported, same HD Rx 09/24: stable, same HD Rx 10/24: stable, same HD Rx 11/21: stable. same HD Rx 12/26: stable, same HD RX Signed by: NAYA JUAREZ MD on 01/21/2025 at 12:44:20 PM Transcribed by: NAYA JUAREZ MD on 01/21/2025 at 12:44:20 PM documented in this encounter Plan of Treatment Upcoming Encounters Date Type Department Care Team (Late st Contact Info) Description 02/07/2025 10:00 AM EDT Procedure visit [facility] [address] [place] [address] documented as of this encounter Visit Diagnoses Diagnosis End stage renal disease Dependence on renal dialysis Type 2 diabetes mellitus with diabetic nephropathy documented in this encounter Care Teams Transitional Studies Instructor Relationship Specialty Start Date End Date Teresa Scales [address] [place] [address] PCP - General 03/27/24 documented as of this encounter
[2025-01-23 01:22] LABS: Alanine Aminotransferase 16 U/L (0-31); Albumin Level 3.7 g/dL (3.5-5.0); Alkaline Phosphatase 76 U/L (39-117); Anion Gap 20 (12-20); Aspartate Amino Transferase 16 U/L (5-31); Blood Urea Nitrogen 43 mg/dL (9-16); Calcium 8.5 mg/dL (8.4-10.2); Carbon Dioxide 26 mmol/L (22-29); Chloride 96 mmol/L (96-108); Creatinine Clr Calc Pharmacy 4.5; Estimated Glomerular Filt Rate 4; Potassium 3.9 mmol/L (3.3-5.1); Sodium 138 mmol/L (135-145); Total Protein 7.0 g/dL (6.5-8.0)
[2025-01-23 01:40] LABS: Resp Syncy Virus RNA Qual PCR NEGATIVE (Negative); SARS COV2 PCR INHOUSE NEGATIVE (Negative)
--- NOTE | 2025-01-23 01:56 | PC.NURSE ---
pt was BIBA with c/o of weakness after dialysis yesterday. she gets dialysis mon, and saturdays at 10a. Pt stated she felt more weak than usual. Pt has a L fistula with + bruit on L arm. no n/v. States she hasn't had an appetite. pts O2 dropped as low as 85 whiel resting- RN put pt on NC 2L of O2. Blood cultures were drawn, fluids hung, tylenol IV, abx given. Pt has #20 RAC. critical lactic of 2.1 and creatine of 9.6 reported to RN at 01:25. sales professional gave provider critical results. Sepsis called at 0125. Protocol initiated. Will continue to monitor and care for pt.
--- NOTE | 2025-01-23 02:25 | PC.NURSE ---
fluids are not complete yet as pt went to CT. fluids will continue to infuse once CT is complete.
--- NOTE | 2025-01-23 02:36 | PC.NURSE ---
pt reconnected to fluids after CT scan. Fluids infusing.
[2025-01-23 03:02] LABS: Reflex Lactate? Lactic Acid Added
[2025-01-23 03:45] LABS: ~Lactic Acid-LAB USE ONLY 1.7 mmol/L (0.5-2.0)
[2025-01-23 04:37] LABS: Appearance Urine Turbid; Glucose Urine UA 500 mg/dL (Negative); PH 6.5 (5.0-9.0); Specific Gravity - Urine 1.015 (1.005-1.025); UMIC TRIGGER UACC YES
[2025-01-23 04:44] LABS: UACC Culture Trigger YES
--- NOTE | 2025-01-23 05:10 | PC.NURSE ---
Straight cath was performed by RN as per order. 10mLs of urine obtained and sent to lab.
--- NOTE | 2025-01-23 06:22 | PM.IMHP ---
History of Present Illness Date of Service: 01/23/25 Attending physician on admission: Diony García Chief Complaint: weakness Patient is a 79-year-old female with a past medical history significant for hypertension, hyperlipidemia, type 2 diabetes, history breast cancer and ESRD on HD TTS (tank erector unknown), who presented to the ED due to weakness and shakiness for the past 2 days. The patient went for dialysis on Monday and was feeling okay, later to soon HH started to feel weak and tired and last night the patient's daughter called EMS as her weakness and fatigue had not improved. The patient denies any additional symptoms including headache, chest pain, shortness of breath, cough, abdominal pain or urinary symptoms. She reports that she rarely urinates but has not had any changes including dysuria or difficulty with urination. Pt is a poor historian. Review of Systems Constitutional: Constitutional: Denies body ache(s), Denies chills, Reports fatigue, Denies fever(s), Denies headache(s) and Reports weakness Eyes: Eyes: Denies change in vision ENT: Denies headache(s), Denies nasal congestion and Denies sore throat Cardiovascular: Cardiovascular: Denies chest pain, Denies rapid heart rate, Denies leg edema, Denies lightheadedness and Denies dyspnea Respiratory: Respiratory: Denies chest congestion, Denies cough, Denies dyspnea and Denies wheezing Gastrointestinal: Gastrointestinal: Denies abdominal pain, Denies diarrhea, Denies nausea and Denies vomiting Genitourinary: Genitourinary: Denies dysuria and Denies urinary urgency Musculoskeletal: Musculoskeletal: Denies back pain and Denies myalgias Integumentary/Breasts: Skin/Breast: Denies rash Neurologic: Denies confusion, Denies headache(s) and Reports weakness Psychiatric: Psychiatric: Denies confusion Endocrine: Endocrine: Reports fatigue Hematologic/Lymphatic: Hematologic/Lymphatic: Denies easy bleeding and Denies easy bruising Allergic/Immunologic: Allergic/Immunologic: Denies wheezing [facility] Medical History (Updated 01/23/25 @ 06:27 by Noemí Brewster PA-C) Tobacco use disorder History of breast cancer ESRD (end stage renal disease) on dialysis T2DM (type 2 diabetes mellitus) HLD (hyperlipidemia) HTN (hypertension) Social History Patient Tobacco Use Status: Current everyday Tobacco user Narrative: smokes 1ppd, no etoh or drug use Meds Allergies Allergy/AdvReac Type Severity Reaction Status Date / Time No Known Allergies Allergy Verified 01/23/25 00:22 Active Medications: Current Medications Acetaminophen (Acetaminophen 325 Mg Tablet) 975 mg PO Q6H PRN PRN Reason: Pain, Mild 1-3,fever,headache Azithromycin (Azithromycin 500 Mg Tablet) 500 mg PO Q24H [place] Calcium Carbonate (Calcium Carbonate 750 Mg Tab.Chew) 750 mg PO Q4H PRN PRN Reason: Heartburn Ceftriaxone Sodium (Ceftriaxone Sodium 2 Gm Vial) 2 gm IVPUSH Q24H [place] Dextrose (Dextrose 50 % 25 Gm/50 Ml Syringe) 25 gm IVPUSH Q15M PRN; Protocol PRN Reason: per Hypoglycemia Standing Ord. Glucose (Glucose Gel 15 Gm Gel..Gram.) 15 gm PO Q15M PRN; Protocol PRN Reason: per Hypoglycemia Standing Ord. Heparin Sodium (Porcine) (Heparin Sodium,Porcine 5,000 Unit/Ml Vial) 5,000 unit SUBCUT Q12H [facility] Insulin Human Lispro (Insulin Lispro 100 Unit/Ml 3 Ml Vial) 0 unit SUBCUT QIDACHS [facility]; Protocol Magnesium Hydroxide (Milk Of Magnesia 30 Ml Oral.Susp) 30 ml PO DAILY PRN PRN Reason: Constipation Melatonin (Melatonin 3 Mg Tablet) 6 mg PO BEDTIME PRN PRN Reason: Insomnia Ondansetron HCl (Ondansetron Hcl 4 Mg/2 Ml Vial) 4 mg IVPUSH Q8H PRN PRN Reason: Nausea and Vomiting Sodium Chloride (0.9 % Sodium Chloride Flush 3 Ml Syringe) 3 ml IVFLUSH QSHIFT [facility] Physical Exam Vital Signs and Narrative: Vital Signs: Last Vital Signs Temp 98.5 F 01/23/25 03:56 Pulse 81 01/23/25 05:34 Resp 14 01/23/25 05:34 BP 119/50 L 01/23/25 05:34 Pulse Ox 95 01/23/25 05:34 O2 Del Method Room Air 01/23/25 05:34 O2 Flow Rate 2 01/23/25 02:10 BMI result Body Mass Index 28.3 General: AOx3, no acute distress. appears fatigued Resp: diminished throughout. no crackles or wheezing. CVS: S1, S2, tachy, regular rhythm GI: +BS, NT, no distention Skin: Warm, dry Neuro: Cranial nerves II-XII grossly intact bilaterally. Motor grossly intact bilaterally Extremities: No pitting edema Psych: Appropriate affect Const: General: No confusion Orientation/consciousness: No confusion Neuro: General: No confusion Results Labs 01/23/25 00:55 01/23/25 00:55 Labs: Laboratory Results - last 24 hr 01/23/25 01/23/25 01/23/25 00:55 03:23 04:31 MCV 88.2 MCH 31.3 MCHC 35.5 H RDW 14.4 Plt Count 175 MPV 9.5 Immature Gran % (Auto) 0.4 Neut % (Auto) 78.2 H Lymph % (Auto) 9.6 L Cuming % (Auto) 10.7 Eos % (Auto) 0.7 Baso % (Auto) 0.4 Lymph # (Auto) 0.8 L Cuming # (Auto) 0.9 Eos # (Auto) 0.1 Baso # (Auto) 0.0 Abs Immat Gran (auto) 0.03 Absolute Neuts (auto) 6.4 Absolute Nucleated RBC 0.000 Nucleated RBC % (auto) 0.0 PT 11.2 INR 1.0 Anion Gap 20 Estim Creat Clear Calc 4.5 Estimated GFR 4 Random Glucose 324 H Lactic Acid 2.1 H* Lactic Acid F/U @ 2Hr 1.7 Calcium 8.5 Magnesium 1.9 Total Bilirubin 0.6 AST 16 ALT 16 Alkaline Phosphatase 76 C-Reactive Protein 2.84 H Total Protein 7.0 Albumin 3.7 Urine Color Yellow Urine Appearance Turbid Urine pH 6.5 Ur Specific [place] 1.015 Urine Protein 300 (3+) H Urine Glucose (UA) 500 H Urine Ketones Negative Urine Blood Small (1+) H Urine Nitrite Negative Ur Leukocyte Esterase Large (3+) H Urine RBC 0-2 Urine WBC >50 Ur Squamous Epith Cells >20 Urine Bacteria 2+ Hyaline Casts 3-5 Urine Yeast Present Influenza Type A (PCR) NEGATIVE Influenza Type B (PCR) NEGATIVE RSV RNA Qual (PCR) NEGATIVE SARS-CoV-2 RNA (RT-PCR) NEGATIVE Assessment and Plan (1) Sepsis: Status: Acute (2) UTI (urinary tract infection): Status: Acute (3) Pneumonia: Status: Acute (4) Abnormal CT of the abdomen: Status: Acute (5) ESRD (end stage renal disease) on dialysis: Status: Acute (6) Anemia: Status: Acute (7) Tobacco use disorder: Status: Acute Plan Patient is a 79-year-old female with a past medical history significant for hypertension, hyperlipidemia, type 2 diabetes, history breast cancer and ESRD on HD TTS (tank erector unknown), who presented to the ED due to weakness and shakiness for the past 2 days. sepsis secondary to UTI and possible pneumonia - WBC 8.1, tachycardic and febrile up to 101.0, lactic acid 2.1, 1.7 on repeat, blood cultures x2 pending, not severe sepsis - UA positive, culture pending - chest x-ray with faint increased density laterally within the left lower lung. An infiltrate is not excluded. CT chest advised for more accurate assessment - CT abdomen pelvis with mild atelectasis in the lower lungs. No focal infiltrate in the left lung has a question on prior chest x-ray study. Cholelithiasis, and apparent tiny area of high attenuation is noted in the association with the common bile duct, choledocholithiasis we will need to be excluded with known urgent MRCP. Apparent fullness of the pancreatic head is noted, can be further assessed at time of MRCP. 1.6 cm lesion left kidney, may represent a proteinaceous cyst, follow-up nonemergent CT kidneys with and without contrast as advised. Bilateral renal calculi without hydronephrosis. Mild stranding adjacent to the bladder. 3.4 cm left ovarian cystic lesion, pelvic ultrasound advised nonemergent. 2.7 cm fluid collection in the soft tissues of the left breast. - EKG with sinus tachycardia and PACs - COVID/RSV/flu negative - respiratory pathogen panel - lactic acid 2.1, 1.7 on repeat, patient received 1 L IV fluids - started on ceftriaxone and azithromycin in ED, continue pending further evaluation - monitor CBC and BMP Abnormal CT findings - MRCP ordered for possible choledocholithiasis and pancreatic head fullness - recommend outpatient kidney CT to follow-up on 1.6 cm lesion - within outpatient pelvic ultrasound to follow-up on 3.4 cm left ovarian cystic lesion - 2.7 cm fluid collection in the soft tissues of the left breast, pt with hx of breast ca, treatment unknown ESRD on HD TTS - cr 9.63 - tank erector unknown, pt states daughter does not know either - goes to [facility] in [place] for dialysis - per [facility] records had recent fistula thrombectomy. tank erector possibly Dr Singh - ED provider reaching out to Dr Singh to see if she is his pt - pt will need dialysis today anemia, chronic - hgb 11.4, hct 32.1, normocytic - no obvious bleeding sources - no beed for blood transfusion at this time - monitor CBC T2DM - diabetic diet - sliding scale insulin HTN - normotensive, hold home meds HLD - continue home meds med rec pending full code VTE prophy: heparin Patient is a 79-year-old female with sepsis secondary to UTI and possible pneumonia, requiring admission for at least 2 midnight stay for IV antibiotics, further evaluation and monitoring. Quality Stroke Does the patient have a stroke diagnosis?: No VTE Prior VTE?: No VTE Risk Level:: Medical - moderate - high VTE Device Contraindication: Treatment Not Indicated VTE Drug Contraindication: N/A - Med Ordered
[2025-01-23 07:09] LABS: Glucose, Whole Blood 228 mg/dL (60-115)
[2025-01-23] MEDS: 0.9 % Sodium Chloride Flush 3 ML SYRINGE IVFLUSH ×3 (08:29→21:06)
[2025-01-23 08:31] LABS: Chlamydia pneumoniae PCR Not Detected (Not Detect.); Coronavirus 229E PCR Not Detected (Not Detect.); Coronavirus HKU1 PCR Not Detected (Not Detect.); Coronavirus NL63 PCR Not Detected (Not Detect.); Coronavirus OC43 PCR Not Detected (Not Detect.); RSV PCR Not Detected (Not Detect.); Rhino/Enterovirus PCR Detected (Not Detect.)
[2025-01-23 08:37] LABS: Influenza A H1 PCR Not Detected (Not Detect.); Influenza A H1-2009 PCR Not Detected (Not Detect.); Influenza A H3 PCR Not Detected (Not Detect.); SARS-CoV-2 PCR Not Detected (Not Detect.)
--- NOTE | 2025-01-23 09:27 | MHC.CM.PN ---
CM addressed IMM with Patient; original was given to her and a copy will be placed on the chart. Patient lives in an apartment with her Daughter/HCP/Deborah and she uses a cane to assist with mobility. Patient receives her HD @ [facility] in [place] T//Mon and home/resume said services is her goal. CM has initiated and will follow for dc planning. PCP is Dr. Teresa Scales, and Grandson will transport to home at dc.
--- NOTE | 2025-01-23 11:25 | HO.PM.IMPN ---
Subjective Subjective Date of Service: 01/23/25 Interval History: still with chills/rigors Physical Exam Exam: Exam: General: AO X 3, ill appearing, shivering Resp: CTA bilateral, no accessory muscles used CVS: S1,S2,RRR GI: soft, non tender, non distended Neuro: motor grossly intact, alert Psych: appropriate affect, appropriate insight Vital Signs: Vital Signs: Last Vital Signs Temp 99.4 F 01/23/25 10:11 Pulse 94 01/23/25 10:11 Resp 17 01/23/25 10:11 BP 146/52 H 01/23/25 10:11 Pulse Ox 98 01/23/25 10:11 O2 Del Method Room Air 01/23/25 10:11 O2 Flow Rate 2 01/23/25 02:10 BMI result Body Mass Index 28.3 Objective Data Active Medications Acetaminophen (Acetaminophen 325 Mg Tablet) 975 mg PO Q6H PRN PRN Reason: Pain, Mild 1-3,fever,headache Azithromycin (Azithromycin 500 Mg Tablet) 500 mg PO Q24H [place] Calcium Carbonate (Calcium Carbonate 750 Mg Tab.Chew) 750 mg PO Q4H PRN PRN Reason: Heartburn Ceftriaxone Sodium (Ceftriaxone Sodium 2 Gm Vial) 2 gm IVPUSH Q24H [place] Dextrose (Dextrose 50 % 25 Gm/50 Ml Syringe) 25 gm IVPUSH Q15M PRN; Protocol PRN Reason: per Hypoglycemia Standing Ord. Glucose (Glucose Gel 15 Gm Gel..Gram.) 15 gm PO Q15M PRN; Protocol PRN Reason: per Hypoglycemia Standing Ord. Heparin Sodium (Porcine) (Heparin Sodium,Porcine 5,000 Unit/Ml Vial) 5,000 unit SUBCUT Q12H [facility] Last Admin: 01/23/25 06:32 Dose: 5,000 unit Documented By: BOBY Insulin Human Lispro (Insulin Lispro 100 Unit/Ml 3 Ml Vial) 0 unit SUBCUT QIDACHS [place]; Protocol Last Admin: 01/23/25 08:29 Dose: 4 unit Documented By: JAMI Magnesium Hydroxide (Milk Of Magnesia 30 Ml Oral.Susp) 30 ml PO DAILY PRN PRN Reason: Constipation Melatonin (Melatonin 3 Mg Tablet) 6 mg PO BEDTIME PRN PRN Reason: Insomnia Ondansetron HCl (Ondansetron Hcl 4 Mg/2 Ml Vial) 4 mg IVPUSH Q8H PRN PRN Reason: Nausea and Vomiting Sodium Chloride (0.9 % Sodium Chloride Flush 3 Ml Syringe) 3 ml IVFLUSH QSHIFT [facility] Last Admin: 01/23/25 08:29 Dose: 3 ml Documented By: JAMI Labs 01/23/25 00:55 01/23/25 00:55 Labs: Laboratory Results - last 24 hr 01/23/25 01/23/25 01/23/25 00:55 03:23 04:31 MCV 88.2 MCH 31.3 MCHC 35.5 H RDW 14.4 Plt Count 175 MPV 9.5 Immature Gran % (Auto) 0.4 Neut % (Auto) 78.2 H Lymph % (Auto) 9.6 L [place] % (Auto) 10.7 Eos % (Auto) 0.7 Baso % (Auto) 0.4 Lymph # (Auto) 0.8 L [place] # (Auto) 0.9 Eos # (Auto) 0.1 Baso # (Auto) 0.0 Abs Immat Gran (auto) 0.03 Absolute Neuts (auto) 6.4 Absolute Nucleated RBC 0.000 Nucleated RBC % (auto) 0.0 PT 11.2 INR 1.0 Anion Gap 20 Estim Creat Clear Calc 4.5 Estimated GFR 4 POC Glucose Random Glucose 324 H Lactic Acid 2.1 H* Lactic Acid F/U @ 2Hr 1.7 Calcium 8.5 Magnesium 1.9 Total Bilirubin 0.6 AST 16 ALT 16 Alkaline Phosphatase 76 C-Reactive Protein 2.84 H Total Protein 7.0 Albumin 3.7 TSH 0.90 Urine Color Yellow Urine Appearance Turbid Urine pH 6.5 Ur Specific [place] 1.015 Urine Protein 300 (3+) H Urine Glucose (UA) 500 H Urine Ketones Negative Urine Blood Small (1+) H Urine Nitrite Negative Ur Leukocyte Esterase Large (3+) H Urine RBC 0-2 Urine WBC >50 Ur Squamous Epith Cells >20 Urine Bacteria 2+ Hyaline Casts 3-5 Urine Yeast Present Respiratory Panel [place] Adenovirus (Rapid PCR) B.pert (TEM-PCR) B.parapertussis DNA PCR C. pneumoniae DNA (PCR) Coronavirus OC43 (PCR) Coronavirus HKU1 (PCR) Coronavirus 229E (PCR) Coronavirus NL63 (PCR) Human Metapneumovir PCR Influenza A (RT-PCR) Influenza A (H1) PCR Influ A () PCR Influenza A (H3) PCR Influenza Type A (PCR) NEGATIVE Influenza B (RT-PCR) Influenza Type B (PCR) NEGATIVE M. pneumoniae (PCR) Parainfluenza 1 (PCR) Parainfluenza 2 (PCR) Parainfluenza 3 (PCR) Parainfluenza 4 (PCR) RSV (PCR) RSV RNA Qual (PCR) NEGATIVE Entero/Rhino (PCR) SARS-CoV-2 RNA (RT-PCR) NEGATIVE 01/23/25 01/23/25 07:05 07:15 MCV MCH MCHC RDW Plt Count MPV Immature Gran % (Auto) Neut % (Auto) Lymph % (Auto) [place] % (Auto) Eos % (Auto) Baso % (Auto) Lymph # (Auto) [place] # (Auto) Eos # (Auto) Baso # (Auto) Abs Immat Gran (auto) Absolute Neuts (auto) Absolute Nucleated RBC Nucleated RBC % (auto) PT INR Anion Gap Estim Creat Clear Calc Estimated GFR POC Glucose 228 H Random Glucose Lactic Acid Lactic Acid F/U @ 2Hr Calcium Magnesium Total Bilirubin AST ALT Alkaline Phosphatase C-Reactive Protein Total Protein Albumin TSH Urine Color Urine Appearance Urine pH Ur Specific [place] Urine Protein Urine Glucose (UA) Urine Ketones Urine Blood Urine Nitrite Ur Leukocyte Esterase Urine RBC Urine WBC Ur Squamous Epith Cells Urine Bacteria Hyaline Casts Urine Yeast Respiratory Panel [place] See Note Adenovirus (Rapid PCR) Not Detected B.pert (TEM-PCR) Not Detected B.parapertussis DNA PCR Not Detected C. pneumoniae DNA (PCR) Not Detected Coronavirus OC43 (PCR) Not Detected Coronavirus HKU1 (PCR) Not Detected Coronavirus 229E (PCR) Not Detected Coronavirus NL63 (PCR) Not Detected Human Metapneumovir PCR Not Detected Influenza A (RT-PCR) Not Detected Influenza A (H1) PCR Not Detected Influ A (H1/) PCR Not Detected Influenza A (H3) PCR Not Detected Influenza Type A (PCR) Influenza B (RT-PCR) Not Detected Influenza Type B (PCR) M. pneumoniae (PCR) Not Detected Parainfluenza 1 (PCR) Not Detected Parainfluenza 2 (PCR) Not Detected Parainfluenza 3 (PCR) Not Detected Parainfluenza 4 (PCR) Not Detected RSV (PCR) Not Detected RSV RNA Qual (PCR) Entero/Rhino (PCR) Detected A SARS-CoV-2 RNA (RT-PCR) Not Detected Assessment and Plan (1) Abnormal CT of the abdomen: Status: Acute Plan 79F PMH htn, hld, dm, breast ca, esrd on hd (?dr Curiel), presented with rigors Sepsis due to urinary tract infection and possible pneumonia versus cholangitis Continue ceftriaxone azithromycin, follow up MRCP, cultures End-stage renal disease Continue hemodialysis Chronic anemia due to renal disease Stable Diabetes Insulin sliding scale DVT prophylaxis-heparin Full code reason for continued hospitalization:awaiting cultures Quality Stroke Does the patient have a stroke diagnosis?: No VTE Prior VTE?: No VTE Risk Level:: Medical - moderate - high VTE Device Contraindication: Treatment Not Indicated VTE Drug Contraindication: N/A - Med Ordered
[2025-01-23 11:58] LABS: Glucose, Whole Blood 256 mg/dL (60-115)
--- NOTE | 2025-01-23 12:51 | P.CONNP_ITS ---
History of Present Illness Reason for Consult Consult date: 01/23/25 Chief Complaint Chief complaint: ESRD on HD, UTI History of Present Illness Narrative: 79 y/o female with HTN, HLD, DMII, hx breast CA, ESRD on HD TTS ([facility], braiding operator is Dr Guillory). Presented 01/23 with weakness, shakiness x2 dyas. She did go to her last HD session on Monday and has not missed any sessions. Nephrology consulted for management of ESRD on HD. patient does make some urine- UA+, culture pending. CT abd/pelvis with ?choledocholithiasis, so plan for MRCP. patient has 1.6cm lesion on left kidney, no hdyro- needs f/u as outpatient. Patient states she is tired, ROS otherwise negative. Review of Systems Review of Systems Yes all other systems are reviewed and are negative [facility] Past Medical History Medical History (Updated 01/23/25 @ 06:27 by Noemí Brewster PA-C) Tobacco use disorder History of breast cancer ESRD (end stage renal disease) on dialysis T2DM (type 2 diabetes mellitus) HLD (hyperlipidemia) HTN (hypertension) Social History Social History Patient Tobacco Use Status: Current everyday Tobacco user Smoked in Last 30 Days: Yes Use of substances other than those prescribed or required for medical reasons: No Advance Directives: No Advance Directives Information Provided: Yes Nutrition Risks: No Nutritional Risk service: No Meds Allergies Allergy/AdvReac Type Severity Reaction Status Date / Time No Known Allergies Allergy Verified 01/23/25 00:22 Active Medications: Current Medications Acetaminophen (Acetaminophen 325 Mg Tablet) 975 mg PO Q6H PRN PRN Reason: Pain, Mild 1-3,fever,headache Azithromycin (Azithromycin 500 Mg Tablet) 500 mg PO Q24H [place] Calcium Carbonate (Calcium Carbonate 750 Mg Tab.Chew) 750 mg PO Q4H PRN PRN Reason: Heartburn Ceftriaxone Sodium (Ceftriaxone Sodium 2 Gm Vial) 2 gm IVPUSH Q24H [place] Dextrose (Dextrose 50 % 25 Gm/50 Ml Syringe) 25 gm IVPUSH Q15M PRN; Protocol PRN Reason: per Hypoglycemia Standing Ord. Glucose (Glucose Gel 15 Gm Gel..Gram.) 15 gm PO Q15M PRN; Protocol PRN Reason: per Hypoglycemia Standing Ord. Heparin Sodium (Porcine) (Heparin Sodium,Porcine 5,000 Unit/Ml Vial) 5,000 unit SUBCUT Q12H [facility] Last Admin: 01/23/25 06:32 Dose: 5,000 unit Insulin Human Lispro (Insulin Lispro 100 Unit/Ml 3 Ml Vial) 0 unit SUBCUT QIDACHS [facility]; Protocol Last Admin: 01/23/25 12:13 Dose: Not Given Magnesium Hydroxide (Milk Of Magnesia 30 Ml Oral.Susp) 30 ml PO DAILY PRN PRN Reason: Constipation Melatonin (Melatonin 3 Mg Tablet) 6 mg PO BEDTIME PRN PRN Reason: Insomnia Ondansetron HCl (Ondansetron Hcl 4 Mg/2 Ml Vial) 4 mg IVPUSH Q8H PRN PRN Reason: Nausea and Vomiting Sodium Chloride (0.9 % Sodium Chloride Flush 3 Ml Syringe) 3 ml IVFLUSH QSHIFT [facility] Last Admin: 01/23/25 08:29 Dose: 3 ml Home Medications ?Medication ?Instructions ?Recorded ?Confirmed ?Last Taken ?Type atorvastatin 20 mg tablet 20 mg PO DAILY 01/23/25 Unk nown History clopidogrel 75 mg tablet 75 mg PO DAILY 01/23/25 Unk nown History famotidine 20 mg tablet 20 mg PO DAILY 01/23/25 Unk nown History gabapentin 100 mg capsule 100 mg PO DAILY 01/23/25 Un known History losartan 100 mg tablet 100 mg PO DAILY 01/23/25 Un known History sevelamer carbonate 2.4 gram oral 2 g PO TIDWM 5 Unknown History powder packet Physical Exam Vital Signs: Last Vital Signs Temp 99.7 F 01/23/25 11:56 Pulse 94 01/23/25 11:56 Resp 16 01/23/25 11:56 BP 136/56 L 01/23/25 11:56 Pulse Ox 97 01/23/25 11:56 O2 Del Method Room Air 01/23/25 11:56 O2 Flow Rate 2 01/23/25 02:10 BMI result Body Mass Index 28.3 Const General: no acute distress, alert and awake Resp Effort & Inspection: normal respiratory effort and able to speak in complete sentences Auscultation: clear to auscultation bilaterally Cardio Rate: regular rate Rhythm: regular rhythm Heart sounds: S1 normal heart sound present and S2 normal heart sound present GI Palpation (GI): Soft to palpation and nontender Skin Lesions: no lesions Extrem General: No edema Results Lab Results 01/23/25 00:55 01/23/25 00:55 Lab results: Chemistry 01/23/25 00:55 Sodium 138 Potassium 3.9 Carbon Dioxide 26 BUN 43 H Creatinine 9.63 H* Calcium 8.5 Hematology 01/23/25 00:55 WBC 8.1 Hgb 11.4 L Plt Count 175 Urinalysis 01/23/25 04:31 Urine Color Yellow Urine Appearance Turbid Urine pH 6.5 Ur Specific [place] 1.015 Urine Protein 300 (3+) H Urine Glucose (UA) 500 H Urine Ketones Negative Urine Blood Small (1+) H Urine Nitrite Negative Ur Leukocyte Esterase Large (3+) H Urine RBC 0-2 Urine WBC >50 Ur Squamous Epith Cells >20 Hyaline Casts 3-5 Assessment and Plan (1) ESRD (end stage renal disease) on dialysis: Status: Acute Plan ESRD on TTS, will get HD today per her outpatient schedule no uremic symtpoms today labs unremarkable- electrolytes within normal limits no metabolic acidosis at this time H&H 11.4 &32, no indication for procrit at this time left upper extremity fistula with +thrill, +bruit recommend low sodium, low potassium, low phosphorus diet recommend fluid restriction 1.5L/24 hours continue supportive care Discussed with Dr Guerrero Procedures Date of Service Date of Service: 01/23/25
--- NOTE | 2025-01-23 14:41 | PHA.MEDREC ---
Addendum entered by Rosalia Reynoso RPh 01/23/25 14:56: Reviewed by [facility] Original Note: Pharmacy Consult ? Medication Reconciliation Pharmacy has completed the medication reconciliation. Spoke with pt and she was a poor historian with her medications and said to call her daughter (Deborah- [phone]) and she was able to confirm pt medications; she states pt taking Trulicity once a week, Vitamin A, D3 and E once daily but doesn't remember the dose of those medications. I called pt pharmacies ([facility], [facility] and [facility]) found in recent claims and [facility] and [facility] pharmacy has no claims for Trulicity being filled at their facilities and [facility] states they have gotten a few different scrips for Trulicity that the pt never picked up (most recent being 4.5mg once a week from beginning of this year).
[2025-01-23 16:09] LABS: Glucose, Whole Blood 164 mg/dL (60-115)
--- NOTE | 2025-01-23 19:20 | HO.SKINPHOTO ---
Location: Category: Stage: Length: Width: Depth: cm Location: Category: Stage: Length: Width: Depth: cm Location: Category: Stage: Length: Width: Depth: cm Location: Category: Stage: Length: Width: Depth: cm Location: Category: Stage: Length: Width: Depth: cm Location: Category: Stage: Length: Width: Depth: cm
[2025-01-23 19:53] LABS: Glucose, Whole Blood 151 mg/dL (60-115)
[2025-01-23 21:04] LABS: Glucose, Whole Blood 166 mg/dL (60-115)
[2025-01-24] VITALS (8 sets, daily range): BP systolic 91–138; BP diastolic 42–62; PULSE 71–102; RESP 16–18; TEMP 36.3–37.2; O2SAT 93–99; BMI 28.3
[2025-01-24 07:18] LABS: MANUAL DIFF FLAG NO
[2025-01-24 07:23] LABS: Hematocrit 30.4 % (37.0-47.0); Hemoglobin 10.3 g/dl (12.0-16.0); Mean Corpuscular HGB Conc 33.9 g/dl (31.0-35.0); Mean Corpuscular Hemoglobin 30.7 pg (27.0-33.0); Mean Corpuscular Volume 90.7 fL (80.0-98.0); NRBC Abs Auto 0.000 X10*3/uL (0.0-0.012); NRBC Pct Auto 0.0 /100WBC (0.0-0.2); Platelet Count 147 X10*3/uL (160-400); Red Blood Count 3.35 X10*6/uL (4.20-5.50); White Blood Count 4.8 X10*3/uL (4.8-10.8)
[2025-01-24 07:24] LABS: Hematocrit 30.2 % (37.0-47.0); Hemoglobin 10.3 g/dl (12.0-16.0); Imm Gran Abs Auto 0.02 X10*3/uL (0.00-0.03); Imm Gran Pct Auto 0.4 % (0.0-0.4); Lymphocytes Absolute Auto 1.1 X10*3/uL (1.2-4.9); Mean Corpuscular HGB Conc 34.1 g/dl (31.0-35.0); Mean Corpuscular Hemoglobin 31.0 pg (27.0-33.0); Mean Corpuscular Volume 91.0 fL (80.0-98.0); NRBC Abs Auto 0.000 X10*3/uL (0.0-0.012); NRBC Pct Auto 0.0 /100WBC (0.0-0.2); Platelet Count 148 X10*3/uL (160-400); Red Blood Count 3.32 X10*6/uL (4.20-5.50); White Blood Count 4.7 X10*3/uL (4.8-10.8)
[2025-01-24 07:27] LABS: Glucose, Whole Blood 153 mg/dL (60-115)
[2025-01-24 07:49] LABS: Alanine Aminotransferase 11 U/L (0-31); Albumin Level 3.2 g/dL (3.5-5.0); Alkaline Phosphatase 61 U/L (39-117); Anion Gap 16 (12-20); Aspartate Amino Transferase 21 U/L (5-31); Blood Urea Nitrogen 27 mg/dL (9-16); Calcium 8.7 mg/dL (8.4-10.2); Carbon Dioxide 30 mmol/L (22-29); Chloride 98 mmol/L (96-108); Creatinine Clr Calc Pharmacy 6.0; Estimated Glomerular Filt Rate 6; Magnesium 2.0 mg/dL (1.6-2.6); Potassium 3.6 mmol/L (3.3-5.1); Sodium 140 mmol/L (135-145); Total Protein 6.3 g/dL (6.5-8.0)
[2025-01-24] MEDS: Sevelamer Carbonate Powder 800 MG POWD.PACK 2000 MG PO ×3 (07:53→18:26)
[2025-01-24] MEDS: 0.9 % Sodium Chloride Flush 3 ML SYRINGE IVFLUSH ×3 (07:53→21:04)
--- NOTE | 2025-01-24 09:56 | HO.PM.IMPN ---
Subjective Subjective Date of Service: 01/24/25 Interval History: feeling a bit better today Physical Exam Vital Signs: Vital Signs: Last Vital Signs Temp 98.9 F 01/24/25 07:39 Pulse 71 01/24/25 07:39 Resp 18 01/24/25 07:39 BP 102/42 L 01/24/25 07:52 Pulse Ox 95 01/24/25 07:39 O2 Del Method Room Air 01/24/25 07:39 O2 Flow Rate 2 01/23/25 02:10 BMI result Body Mass Index 28.3 Const: General: no acute distress, alert and awake Resp: Effort & Inspection: normal respiratory effort and able to speak in complete sentences Auscultation: clear to auscultation bilaterally Cardio: Rate: regular rate Rhythm: regular rhythm Heart sounds: S1 normal heart sound present and S2 normal heart sound present GI: Palpation (GI): Soft to palpation and nontender Skin: Lesions: no lesions Extrem: General: No edema Objective Data Active Medications Acetaminophen (Acetaminophen 325 Mg Tablet) 975 mg PO Q6H PRN PRN Reason: Pain, Mild 1-3,fever,headache Aspirin (Aspirin 81 Mg Tab.Chew) 81 mg PO DAILY REPLACED BY [facility] Last Admin: 01/24/25 07:52 Dose: 81 mg Documented By: FALGUNI Atorvastatin Calcium (Atorvastatin Calcium 20 Mg Tablet) 20 mg PO DAILY REPLACED BY [facility] Last Admin: 01/24/25 07:52 Dose: 20 mg Documented By: FALGUNI Azithromycin (Azithromycin 500 Mg Tablet) 500 mg PO Q24H REPLACED BY [facility] Last Admin: 01/24/25 05:19 Dose: 500 mg Documented By: BERLIN Calcium Carbonate (Calcium Carbonate 750 Mg Tab.Chew) 750 mg PO Q4H PRN PRN Reason: Heartburn Ceftriaxone Sodium (Ceftriaxone Sodium 2 Gm Vial) 2 gm IVPUSH Q24H REPLACED BY [facility] Last Admin: 01/23/25 21:05 Dose: 2 gm Documented By: BERLIN Clopidogrel Bisulfate (Clopidogrel Bisulfate 75 Mg Tablet) 75 mg PO DAILY REPLACED BY [facility] Last Admin: 01/24/25 07:52 Dose: 75 mg Documented By: FALGUNI Dextrose (Dextrose 50 % 25 Gm/50 Ml Syringe) 25 gm IVPUSH Q15M PRN; Protocol PRN Reason: per Hypoglycemia Standing Ord. Famotidine (Famotidine 20 Mg Tablet) 20 mg PO [facility] Last Admin: 01/23/25 21:05 Dose: 20 mg Documented By: BERLIN Gabapentin (Gabapentin 100 Mg Capsule) 100 mg PO [facility] Last Admin: 01/23/25 21:05 Dose: 100 mg Documented By: BERLIN Glucose (Glucose Gel 15 Gm Gel..Gram.) 15 gm PO Q15M PRN; Protocol PRN Reason: per Hypoglycemia Standing Ord. Heparin Sodium (Porcine) (Heparin Sodium,Porcine 5,000 Unit/Ml Vial) 5,000 unit SUBCUT Q12H REPLACED BY [facility] Last Admin: 01/24/25 05:21 Dose: 5,000 unit Documented By: BERLIN Insulin Human Lispro (Insulin Lispro 100 Unit/Ml 3 Ml Vial) 0 unit SUBCUT QIDACHS REPLACED BY [facility]; Protocol Last Admin: 01/24/25 07:52 Dose: 2 unit Documented By: FALGUNI Losartan Potassium (Losartan Potassium 50 Mg Tablet) 100 mg PO DAILY REPLACED BY [facility]; Protocol Last Admin: 01/24/25 07:52 Dose: Not Given Documented By: FALGUNI Non-Admin Reason: Decreased Blood Pressure Magnesium Hydroxide (Milk Of Magnesia 30 Ml Oral.Susp) 30 ml PO DAILY PRN PRN Reason: Constipation Melatonin (Melatonin 3 Mg Tablet) 6 mg PO BEDTIME PRN PRN Reason: Insomnia Ondansetron HCl (Ondansetron Hcl 4 Mg/2 Ml Vial) 4 mg IVPUSH Q8H PRN PRN Reason: Nausea and Vomiting Sevelamer Carbonate (Sevelamer Carbonate Powder 800 Mg Powd.Pack) 2,000 mg PO TIDWM REPLACED BY [facility] Last Admin: 01/24/25 07:53 Dose: 2,000 mg Documented By: FALGUNI Sodium Chloride (0.9 % Sodium Chloride Flush 3 Ml Syringe) [facility] Last Admin: 01/24/25 07:53 Dose: 3 ml Documented By: FALGUNI Labs 01/24/25 06:50 01/24/25 06:50 Labs: Laboratory Results - last 24 hr 01/23/25 01/23/25 01/23/25 11:52 16:05 19:50 MCV MCH MCHC RDW Plt Count MPV Immature Gran % (Auto) Neut % (Auto) Lymph % (Auto) [place] % (Auto) Eos % (Auto) Baso % (Auto) Lymph # (Auto) [place] # (Auto) Eos # (Auto) Baso # (Auto) Abs Immat Gran (auto) Absolute Neuts (auto) Absolute Nucleated RBC Nucleated RBC % (auto) Anion Gap Estim Creat Clear Calc Estimated GFR POC Glucose 256 H 164 H 151 H Random Glucose Calcium Phosphorus Magnesium Total Bilirubin AST ALT Alkaline Phosphatase Total Protein Albumin 01/23/25 01/24/25 01/24/25 21:00 06:50 06:50 MCV 90.7 91.0 MCH 30.7 MCHC RDW Plt Count MPV Immature Gran % (Auto) Neut % (Auto) Lymph % (Auto) [place] % (Auto) Eos % (Auto) Baso % (Auto) Lymph # (Auto) [place] # (Auto) Eos # (Auto) Baso # (Auto) Abs Immat Gran (auto) Absolute Neuts (auto) Absolute Nucleated RBC Nucleated RBC % (auto) Anion Gap Estim Creat Clear Calc Estimated GFR POC Glucose 166 H Random Glucose Calcium Phosphorus Magnesium Total Bilirubin AST ALT Alkaline Phosphatase Total Protein Albumin 01/24/25 01/24/25 01/24/25 06:50 06:50 06:50 MCV MCH 31.0 MCHC 33.9 34.1 RDW 14.4 14.3 Plt Count 147 L MPV Immature Gran % (Auto) Neut % (Auto) Lymph % (Auto) [place] % (Auto) Eos % (Auto) Baso % (Auto) Lymph # (Auto) [place] # (Auto) Eos # (Auto) Baso # (Auto) Abs Immat Gran (auto) Absolute Neuts (auto) Absolute Nucleated RBC Nucleated RBC % (auto) Anion Gap Estim Creat Clear Calc Estimated GFR POC Glucose Random Glucose Calcium Phosphorus Magnesium Total Bilirubin AST ALT Alkaline Phosphatase Total Protein Albumin 01/24/25 01/24/25 01/24/25 06:50 06:50 06:50 MCV MCH MCHC RDW Plt Count 148 L MPV 9.7 10.3 Immature Gran % (Auto) 0.4 Neut % (Auto) 53.2 Lymph % (Auto) 22.7 [place] % (Auto) 20.0 H Eos % (Auto) 2.8 Baso % (Auto) 0.9 Lymph # (Auto) 1.1 L [place] # (Auto) 0.9 Eos # (Auto) 0.1 Baso # (Auto) 0.0 Abs Immat Gran (auto) 0.02 Absolute Neuts (auto) 2.5 Absolute Nucleated RBC 0.000 0.000 Nucleated RBC % (auto) 0.0 Anion Gap Estim Creat Clear Calc Estimated GFR POC Glucose Random Glucose Calcium Phosphorus Magnesium Total Bilirubin AST ALT Alkaline Phosphatase Total Protein Albumin 01/24/25 01/24/25 06:50 07:17 MCV MCH MCHC RDW Plt Count MPV Immature Gran % (Auto) Neut % (Auto) Lymph % (Auto) [place] % (Auto) Eos % (Auto) Baso % (Auto) Lymph # (Auto) [place] # (Auto) Eos # (Auto) Baso # (Auto) Abs Immat Gran (auto) Absolute Neuts (auto) Absolute Nucleated RBC Nucleated RBC % (auto) 0.0 Anion Gap 16 Estim Creat Clear Calc 6.0 Estimated GFR 6 POC Glucose 153 H Random Glucose 167 H Calcium 8.7 Phosphorus 5.3 H Magnesium 2.0 Total Bilirubin 0.4 AST 21 ALT 11 Alkaline Phosphatase 61 Total Protein 6.3 L Albumin 3.2 L Microbiology Microbiology Results: Microbiology 01/23/25 Unknown Urine Culture - Final Urine clean catch - Clean Catch Midstream No growth. 01/23/25 00:55 Blood Culture - Preliminary Blood - Venous No growth after 24 hours. 01/23/25 00:55 Blood Culture - Preliminary Blood - Venous No growth after 24 hours. Assessment and Plan (1) Abnormal CT of the abdomen: Status: Acute Plan 79F PMH htn, hld, dm, breast ca, esrd on hd (?dr Curiel), presented with rigors Sepsis due to urinary tract infection and possible pneumonia with rhinovirus Continue ceftriaxone azithromycin, negative MRCP, cultures End-stage renal disease Continue hemodialysis Chronic anemia due to renal disease Stable Diabetes Insulin sliding scale DVT prophylaxis-heparin Full code reason for continued hospitalization:awaiting cultures Quality Stroke Does the patient have a stroke diagnosis?: No VTE Prior VTE?: No VTE Risk Level:: Medical - moderate - high VTE Device Contraindication: Treatment Not Indicated VTE Drug Contraindication: N/A - Med Ordered
[2025-01-24 11:18] LABS: Glucose, Whole Blood 292 mg/dL (60-115)
--- NOTE | 2025-01-24 12:04 | HO.WOUND ---
Wound Consult: Initial 79 yr old female admitted to [facility] on 01/23/25 - See progress notes and H&P for detailed history. Wound consult placed for right buttock. Patient agreeable to assessment and photo documentation. Patient able to stand for assessment, waffle cushion provided for chair. Patient reports wounding to her bottom from sitting too much at home . She reports treating the area with cocoa butter which resulted in healing at some point. The wound is open when assessed today. 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 open, pale pink scar tissue Kimberly wound: ? No Induration, Fluctuance or Warmth noted, hyperpigmentation Pain: none Goals of Treatment: ? offloading, moist healing with foam dressing Recommendations: 1. Turn and Reposition every 2 hours and as needed for patient comfort. Use pillows or wedges to support off loading positions. 2. Off Load all bony prominences with use of pillows and heel boots if needed. Apply Preventative foams where needed. 3. Monitor for incontinence and moisture control, use barrier creams when needed for prevention and treatment. 4. Provide adequate and supplemental nutrition. 5. Order or Continue low air loss mattress. 6. When applicable maintain blood glucose levels per Providers order. Right Buttock: Off Load Pressure with Q2 hr turns and use of pillows - Routine cleansing. Apply skin prep allow to dry. Cover with foam dressing to aid in off loading and protection from friction. Change every 3 days and PRN. Re-consult wound care Nurse for wound deterioration or wound changes.
--- NOTE | 2025-01-24 15:59 | MHC.CM.PN ---
EMR reviewed and per MD rounds, pt is not medically cleared for discharge due to management of UTI, cultures pending.
[2025-01-24 16:20] LABS: Glucose, Whole Blood 147 mg/dL (60-115)
[2025-01-24 20:57] LABS: Glucose, Whole Blood 357 mg/dL (60-115)
[2025-01-25 03:24] VITALS: BP 119/58; PULSE 81; RESP 16; TEMP 37; O2SAT 98
[2025-01-25 07:27] LABS: Glucose, Whole Blood 148 mg/dL (60-115)
[2025-01-25 08:11] LABS: MANUAL DIFF FLAG NO
[2025-01-25 08:17] LABS: Hematocrit 27.9 % (37.0-47.0); Hemoglobin 9.9 g/dl (12.0-16.0); Imm Gran Abs Auto 0.02 X10*3/uL (0.00-0.03); Imm Gran Pct Auto 0.5 % (0.0-0.4); Lymphocytes Absolute Auto 1.4 X10*3/uL (1.2-4.9); Mean Corpuscular HGB Conc 35.5 g/dl (31.0-35.0); Mean Corpuscular Hemoglobin 31.6 pg (27.0-33.0); Mean Corpuscular Volume 89.1 fL (80.0-98.0); NRBC Abs Auto 0.000 X10*3/uL (0.0-0.012); NRBC Pct Auto 0.0 /100WBC (0.0-0.2); Platelet Count 152 X10*3/uL (160-400); Red Blood Count 3.13 X10*6/uL (4.20-5.50); White Blood Count 4.3 X10*3/uL (4.8-10.8)
[2025-01-25 08:59] LABS: Alanine Aminotransferase 13 U/L (0-31); Albumin Level 3.3 g/dL (3.5-5.0); Alkaline Phosphatase 63 U/L (39-117); Anion Gap 18 (12-20); Aspartate Amino Transferase 20 U/L (5-31); Blood Urea Nitrogen 27 mg/dL (9-16); Calcium 8.9 mg/dL (8.4-10.2); Carbon Dioxide 28 mmol/L (22-29); Chloride 96 mmol/L (96-108); Creatinine Clr Calc Pharmacy 6.6; Estimated Glomerular Filt Rate 6; Potassium 3.3 mmol/L (3.3-5.1); Sodium 139 mmol/L (135-145); Total Protein 6.5 g/dL (6.5-8.0)
--- NOTE | 2025-01-25 09:47 | HO.PM.IMPN ---
Subjective Subjective Date of Service: 01/25/25 Interval History: improved Physical Exam Vital Signs: Vital Signs: Last Vital Signs Temp 98.6 F 01/25/25 03:24 Pulse 81 01/25/25 03:24 Resp 16 01/25/25 03:24 BP 119/58 L 01/25/25 03:24 Pulse Ox 98 01/25/25 03:24 O2 Del Method Room Air 01/25/25 03:24 O2 Flow Rate 2 01/23/25 02:10 BMI result Body Mass Index 28.3 Const: General: no acute distress, alert and awake Resp: Effort & Inspection: normal respiratory effort and able to speak in complete sentences Auscultation: clear to auscultation bilaterally Cardio: Rate: regular rate Rhythm: regular rhythm Heart sounds: S1 normal heart sound present and S2 normal heart sound present GI: Palpation (GI): Soft to palpation and nontender Skin: Lesions: no lesions Extrem: General: No edema Objective Data Active Medications Acetaminophen (Acetaminophen 325 Mg Tablet) 975 mg PO Q6H PRN PRN Reason: Pain, Mild 1-3,fever,headache Aspirin (Aspirin 81 Mg Tab.Chew) 81 mg PO DAILY [facility] Last Admin: 01/24/25 07:52 Dose: 81 mg Documented By: FALGUNI Atorvastatin Calcium (Atorvastatin Calcium 20 Mg Tablet) 20 mg PO DAILY [facility] Last Admin: 01/24/25 07:52 Dose: 20 mg Documented By: FALGUNI Azithromycin (Azithromycin 500 Mg Tablet) 500 mg PO Q24H [facility] Last Admin: 01/25/25 04:10 Dose: 500 mg Documented By: TORY Calcium Carbonate (Calcium Carbonate 750 Mg Tab.Chew) 750 mg PO Q4H PRN PRN Reason: Heartburn Ceftriaxone Sodium (Ceftriaxone Sodium 2 Gm Vial) 2 gm IVPUSH Q24H [facility] Last Admin: 01/24/25 21:03 Dose: 2 gm Documented By: MELODY Clopidogrel Bisulfate (Clopidogrel Bisulfate 75 Mg Tablet) 75 mg PO DAILY [facility] Last Admin: 01/24/25 07:52 Dose: 75 mg Documented By: FALGUNI Dextrose (Dextrose 50 % 25 Gm/50 Ml Syringe) 25 gm IVPUSH Q15M PRN; Protocol PRN Reason: per Hypoglycemia Standing Ord. Famotidine (Famotidine 20 Mg Tablet) 20 mg PO TuThSa [facility] Last Admin: 01/23/25 21:05 Dose: 20 mg Documented By: BERLIN Gabapentin (Gabapentin 100 Mg Capsule) 100 mg PO [facility] Last Admin: 01/23/25 21:05 Dose: 100 mg Documented By: BERLIN Glucose (Glucose Gel 15 Gm Gel..Gram.) 15 gm PO Q15M PRN; Protocol PRN Reason: per Hypoglycemia Standing Ord. Heparin Sodium (Porcine) (Heparin Sodium,Porcine 5,000 Unit/Ml Vial) 5,000 unit SUBCUT Q12H [facility] Last Admin: 01/25/25 05:48 Dose: 5,000 unit Documented By: TORY Insulin Human Lispro (Insulin Lispro 100 Unit/Ml 3 Ml Vial) 0 unit SUBCUT QIDACHS [facility]; Protocol Last Admin: 01/25/25 07:28 Dose: Not Given Documented By: SARANYA Non-Admin Reason: No Insulin Coverage Losartan Potassium (Losartan Potassium 50 Mg Tablet) 100 mg PO DAILY [facility]; Protocol Last Admin: 01/24/25 07:52 Dose: Not Given Documented By: FALGUNI Non-Admin Reason: Decreased Blood Pressure Magnesium Hydroxide (Milk Of Magnesia 30 Ml Oral.Susp) 30 ml PO DAILY PRN PRN Reason: Constipation Melatonin (Melatonin 3 Mg Tablet) 6 mg PO BEDTIME PRN PRN Reason: Insomnia Ondansetron HCl (Ondansetron Hcl 4 Mg/2 Ml Vial) 4 mg IVPUSH Q8H PRN PRN Reason: Nausea and Vomiting Sevelamer Carbonate (Sevelamer Carbonate Powder 800 Mg Powd.Pack) 2,000 mg PO TIDWM [facility] Last Admin: 01/24/25 18:26 Dose: 2,000 mg Documented By: FALGUNI Sodium Chloride (0.9 % Sodium Chloride Flush 3 Ml Syringe) 3 ml IVFLUSH QSHIFT [facility] Last Admin: 01/24/25 21:04 Dose: 3 ml Documented By: MELODY Labs 01/25/25 07:02 01/25/25 07:02 Labs: Laboratory Results - last 24 hr 01/24/25 01/24/25 01/24/25 11:12 16:16 20:51 MCV MCH MCHC RDW Plt Count MPV Immature Gran % (Auto) Neut % (Auto) Lymph % (Auto) [place] % (Auto) Eos % (Auto) Baso % (Auto) Lymph # (Auto) [place] # (Auto) Eos # (Auto) Baso # (Auto) Abs Immat Gran (auto) Absolute Neuts (auto) Absolute Nucleated RBC Nucleated RBC % (auto) Anion Gap Estim Creat Clear Calc Estimated GFR POC Glucose 292 H 147 H 357 H* Random Glucose Calcium Total Bilirubin AST ALT Alkaline Phosphatase Total Protein Albumin 01/25/25 01/25/25 07:02 07:24 MCV 89.1 MCH 31.6 MCHC 35.5 H RDW 14.3 Plt Count 152 L MPV 10.7 Immature Gran % (Auto) 0.5 H Neut % (Auto) 48.2 Lymph % (Auto) 32.8 [place] % (Auto) 13.4 H Eos % (Auto) 4.4 H Baso % (Auto) 0.7 Lymph # (Auto) 1.4 [place] # (Auto) 0.6 Eos # (Auto) 0.2 Baso # (Auto) 0.0 Abs Immat Gran (auto) 0.02 Absolute Neuts (auto) 2.1 Absolute Nucleated RBC 0.000 Nucleated RBC % (auto) 0.0 Anion Gap 18 Estim Creat Clear Calc 6.6 Estimated GFR 6 POC Glucose 148 H Random Glucose 142 H Calcium 8.9 Total Bilirubin 0.4 AST 20 ALT 13 Alkaline Phosphatase 63 Total Protein 6.5 Albumin 3.3 L Microbiology Microbiology Results: Microbiology 01/23/25 00:55 Blood Culture - Preliminary Blood - Venous No growth after 48 hours. 01/23/25 00:55 Blood Culture - Preliminary Blood - Venous No growth after 48 hours. 01/23/25 Unknown Urine Culture - Final Urine clean catch - Clean Catch Midstream No growth. Assessment and Plan (1) Abnormal CT of the abdomen: Status: Acute Plan 79F PMH htn, hld, dm, breast ca, esrd on hd (?dr Curiel), presented with rigors Sepsis due to urinary tract infection and possible pneumonia with rhinovirus Continue ceftriaxone azithromycin, negative MRCP, cultures negative weakness pt eval End-stage renal disease Continue hemodialysis Chronic anemia due to renal disease Stable Diabetes Insulin sliding scale DVT prophylaxis-heparin Full code reason for continued hospitalization:pt eval Quality Stroke Does the patient have a stroke diagnosis?: No VTE Prior VTE?: No VTE Risk Level:: Medical - moderate - high VTE Device Contraindication: Treatment Not Indicated VTE Drug Contraindication: N/A - Med Ordered
[2025-01-25 11:27] VITALS: BP 117/57; PULSE 95; RESP 20; TEMP 37.1; O2SAT 97
[2025-01-25] MEDS: Sevelamer Carbonate Powder 800 MG POWD.PACK 2000 MG PO ×2 (11:38→16:29)
[2025-01-25 11:42] LABS: Glucose, Whole Blood 191 mg/dL (60-115)
[2025-01-25 13:56] LABS: Hemoglobin A1C 163.5948 umol/L; Total Hemoglobin (HGBA1C) 2678.5831 umol/L
[2025-01-25 14:17] VITALS: PULSE 124
[2025-01-25 15:32] VITALS: BP 111/61; PULSE 85; RESP 18; TEMP 36.4; O2SAT 95
[2025-01-25 16:07] LABS: Glucose, Whole Blood 227 mg/dL (60-115)
[2025-01-25] MEDS: 0.9 % Sodium Chloride Flush 3 ML SYRINGE IVFLUSH ×2 (16:30→20:36)
[2025-01-25 19:30] VITALS: BP 114/56; PULSE 88; RESP 16; TEMP 36.6; O2SAT 98
[2025-01-25 20:06] LABS: Glucose, Whole Blood 349 mg/dL (60-115)
[2025-01-25 23:17] VITALS: BP 104/47; PULSE 77; RESP 16; TEMP 37.2; O2SAT 97
[2025-01-26 03:36] VITALS: BP 96/40; PULSE 79; RESP 16; TEMP 36.4; O2SAT 99
[2025-01-26 07:10] LABS: MANUAL DIFF FLAG NO
[2025-01-26 07:13] LABS: Hematocrit 28.4 % (37.0-47.0); Hemoglobin 9.7 g/dl (12.0-16.0); Imm Gran Abs Auto 0.03 X10*3/uL (0.00-0.03); Imm Gran Pct Auto 0.6 % (0.0-0.4); Lymphocytes Absolute Auto 1.6 X10*3/uL (1.2-4.9); Mean Corpuscular HGB Conc 34.2 g/dl (31.0-35.0); Mean Corpuscular Hemoglobin 31.5 pg (27.0-33.0); Mean Corpuscular Volume 92.2 fL (80.0-98.0); NRBC Abs Auto 0.000 X10*3/uL (0.0-0.012); NRBC Pct Auto 0.0 /100WBC (0.0-0.2); Platelet Count 143 X10*3/uL (160-400); Red Blood Count 3.08 X10*6/uL (4.20-5.50); White Blood Count 4.9 X10*3/uL (4.8-10.8)
[2025-01-26 07:21] VITALS: BP 100/61; PULSE 75; RESP 18; TEMP 36.4; O2SAT 98
[2025-01-26 07:38] LABS: Glucose, Whole Blood 189 mg/dL (60-115)
[2025-01-26 08:00] LABS: Alanine Aminotransferase 11 U/L (0-31); Albumin Level 3.2 g/dL (3.5-5.0); Alkaline Phosphatase 60 U/L (39-117); Anion Gap 16 (12-20); Aspartate Amino Transferase 20 U/L (5-31); Blood Urea Nitrogen 22 mg/dL (9-16); Calcium 8.8 mg/dL (8.4-10.2); Carbon Dioxide 31 mmol/L (22-29); Chloride 97 mmol/L (96-108); Creatinine Clr Calc Pharmacy 6.5; Estimated Glomerular Filt Rate 6; Potassium 3.8 mmol/L (3.3-5.1); Sodium 140 mmol/L (135-145); Total Protein 6.4 g/dL (6.5-8.0)
--- NOTE | 2025-01-26 08:48 | P.PNIM_ITS ---
Subjective Subjective Date of Service: 01/26/25 Interval History: improved Physical Exam 2 Vital Signs: Vital Signs: Last Vital Signs Temp 97.5 F 01/26/25 07:21 Pulse 75 01/26/25 07:21 Resp 18 01/26/25 07:21 BP 100/61 01/26/25 07:21 Pulse Ox 98 01/26/25 07:21 O2 Del Method Nasal Cannula 01/26/25 07:21 O2 Flow Rate 1 01/26/25 07:21 BMI result Body Mass Index 28.3 Const: General: no acute distress, alert and awake Resp: Effort & Inspection: normal respiratory effort and able to speak in complete sentences Auscultation: clear to auscultation bilaterally Cardio: Rate: regular rate Rhythm: regular rhythm Heart sounds: S1 normal heart sound present and S2 normal heart sound present GI: Palpation (GI): Soft to palpation and nontender Skin: Lesions: no lesions Extrem: General: No edema Objective Data Active Medications Acetaminophen (Acetaminophen 325 Mg Tablet) 975 mg PO Q6H PRN PRN Reason: Pain, Mild 1-3,fever,headache Aspirin (Aspirin 81 Mg Tab.Chew) 81 mg PO DAILY [facility] Last Admin: 01/25/25 11:39 Dose: 81 mg Documented By: SARANYA Atorvastatin Calcium (Atorvastatin Calcium 20 Mg Tablet) 20 mg PO DAILY [facility] Last Admin: 01/25/25 11:39 Dose: 20 mg Documented By: SARANYA Azithromycin (Azithromycin 500 Mg Tablet) 500 mg PO Q24H [facility] Last Admin: 01/26/25 03:48 Dose: 500 mg Documented By: MORTEZA Calcium Carbonate (Calcium Carbonate 750 Mg Tab.Chew) 750 mg PO Q4H PRN PRN Reason: Heartburn Ceftriaxone Sodium (Ceftriaxone Sodium 2 Gm Vial) 2 gm IVPUSH Q24H [facility] Last Admin: 01/25/25 20:30 Dose: 2 gm Documented By: MORTEZA Clopidogrel Bisulfate (Clopidogrel Bisulfate 75 Mg Tablet) 75 mg PO DAILY [facility] Last Admin: 01/25/25 11:39 Dose: 75 mg Documented By: SARANYA Dextrose (Dextrose 50 % 25 Gm/50 Ml Syringe) 25 gm IVPUSH Q15M PRN; Protocol PRN Reason: per Hypoglycemia Standing Ord. Famotidine (Famotidine 20 Mg Tablet) 20 mg PO TuThSa [facility] Last Admin: 01/25/25 20:30 Dose: 20 mg Documented By: MORTEZA Gabapentin (Gabapentin 100 Mg Capsule) 100 mg PO [facility] Last Admin: 01/25/25 20:30 Dose: 100 mg Documented By: MORTEZA Glucose (Glucose Gel 15 Gm Gel..Gram.) 15 gm PO Q15M PRN; Protocol PRN Reason: per Hypoglycemia Standing Ord. Heparin Sodium (Porcine) (Heparin Sodium,Porcine 5,000 Unit/Ml Vial) 5,000 unit SUBCUT Q12H [facility] Last Admin: 01/26/25 05:46 Dose: 5,000 unit Documented By: MORTEZA Insulin Human Lispro (Insulin Lispro 100 Unit/Ml 3 Ml Vial) 0 unit SUBCUT QIDACHS [facility]; Protocol Last Admin: 01/25/25 20:31 Dose: 8 unit Documented By: MORTEZA Losartan Potassium (Losartan Potassium 50 Mg Tablet) 100 mg PO DAILY [facility]; Protocol Last Admin: 01/25/25 11:39 Dose: 100 mg Documented By: SARANYA Magnesium Hydroxide (Milk Of Magnesia 30 Ml Oral.Susp) 30 ml PO DAILY PRN PRN Reason: Constipation Melatonin (Melatonin 3 Mg Tablet) 6 mg PO BEDTIME PRN PRN Reason: Insomnia Ondansetron HCl (Ondansetron Hcl 4 Mg/2 Ml Vial) 4 mg IVPUSH Q8H PRN PRN Reason: Nausea and Vomiting Sevelamer Carbonate (Sevelamer Carbonate Powder 800 Mg Powd.Pack) 2,000 mg PO TIDWM [facility] Last Admin: 01/25/25 16:29 Dose: 2,000 mg Documented By: SARANYA Sodium Chloride (0.9 % Sodium Chloride Flush 3 Ml Syringe) 3 ml IVFLUSH QSHIFT [facility] Last Admin: 01/25/25 20:36 Dose: 3 ml Documented By: MORTEZA Labs 01/26/25 07:00 01/26/25 07:00 Labs: Laboratory Results - last 24 hr 01/25/25 01/25/25 01/25/25 07:02 11:22 16:03 MCV MCH MCHC RDW Plt Count MPV Immature Gran % (Auto) Neut % (Auto) Lymph % (Auto) [place] % (Auto) Eos % (Auto) Baso % (Auto) Lymph # (Auto) [place] # (Auto) Eos # (Auto) Baso # (Auto) Abs Immat Gran (auto) Absolute Neuts (auto) Absolute Nucleated RBC Nucleated RBC % (auto) Anion Gap 18 Estim Creat Clear Calc 6.6 Estimated GFR 6 POC Glucose 191 H 227 H Random Glucose 142 H Estimat Average Glucose 174 Hemoglobin A1c % 7.7 H Calcium 8.9 Total Bilirubin 0.4 AST 20 ALT 13 Alkaline Phosphatase 63 Total Protein 6.5 Albumin 3.3 L 01/25/25 01/26/25 01/26/25 20:01 07:00 07:34 MCV 92.2 MCH 31.5 MCHC 34.2 RDW 14.4 Plt Count 143 L MPV 9.8 Immature Gran % (Auto) 0.6 H Neut % (Auto) 46.2 Lymph % (Auto) 32.0 [place] % (Auto) 16.1 H Eos % (Auto) 4.5 H Baso % (Auto) 0.6 Lymph # (Auto) 1.6 [place] # (Auto) 0.8 Eos # (Auto) 0.2 Baso # (Auto) 0.0 Abs Immat Gran (auto) 0.03 Absolute Neuts (auto) 2.3 Absolute Nucleated RBC 0.000 Nucleated RBC % (auto) 0.0 Anion Gap 16 Estim Creat Clear Calc 6.5 Estimated GFR 6 POC Glucose 349 H 189 H Random Glucose 189 H Estimat Average Glucose Hemoglobin A1c % Calcium 8.8 Total Bilirubin 0.4 AST 20 ALT 11 Alkaline Phosphatase 60 Total Protein 6.4 L Albumin 3.2 L Assessment and Plan (1) Abnormal CT of the abdomen: Status: Acute Plan 79F PMH htn, hld, dm, breast ca, esrd on hd (?dr Curiel), presented with rigors Sepsis due to urinary tract infection and possible pneumonia with rhinovirus Continue ceftriaxone azithromycin, negative MRCP, cultures negative weakness pt recommending STR End-stage renal disease Continue hemodialysis Chronic anemia due to renal disease Stable Diabetes Insulin sliding scale DVT prophylaxis-heparin Full code reason for continued hospitalization:dispo planning Quality Stroke Does the patient have a stroke diagnosis?: No VTE Prior VTE?: No VTE Risk Level:: Medical - moderate - high VTE Device Contraindication: Treatment Not Indicated VTE Drug Contraindication: N/A - Med Ordered
[2025-01-26 09:13] VITALS: BP 102/64
[2025-01-26] MEDS: Sevelamer Carbonate Powder 800 MG POWD.PACK 2000 MG PO ×3 (09:13→16:24)
[2025-01-26] MEDS: 0.9 % Sodium Chloride Flush 3 ML SYRINGE IVFLUSH ×3 (09:14→21:28)
[2025-01-26 11:09] VITALS: BP 101/60; PULSE 71; RESP 18; TEMP 36.3; O2SAT 94
[2025-01-26 11:22] LABS: Glucose, Whole Blood 359 mg/dL (60-115)
[2025-01-26 15:21] VITALS: BP 105/64; PULSE 86; RESP 18; TEMP 36.2; O2SAT 98
[2025-01-26 16:08] LABS: Glucose, Whole Blood 237 mg/dL (60-115)
[2025-01-26 19:37] VITALS: BP 103/50; PULSE 82; RESP 16; TEMP 36.7; O2SAT 97
[2025-01-26 20:50] LABS: Glucose, Whole Blood 260 mg/dL (60-115)
[2025-01-27] VITALS (7 sets, daily range): BP systolic 108–117; BP diastolic 49–71; PULSE 74–92; RESP 16–20; TEMP 36.3–37.7; O2SAT 93–97
[2025-01-27 07:13] LABS: Glucose, Whole Blood 189 mg/dL (60-115)
[2025-01-27] MEDS: Sevelamer Carbonate Powder 800 MG POWD.PACK 2000 MG PO ×3 (08:52→17:27)
[2025-01-27] MEDS: 0.9 % Sodium Chloride Flush 3 ML SYRINGE IVFLUSH ×3 (08:53→21:18)
--- NOTE | 2025-01-27 09:19 | P.PNIM_ITS ---
Subjective Subjective Date of Service: 01/27/25 Interval History: improved Physical Exam 2 Vital Signs: Vital Signs: Last Vital Signs Temp 98.2 F 01/27/25 07:56 Pulse 84 01/27/25 07:56 Resp 20 01/27/25 07:56 BP 117/53 L 01/27/25 07:56 Pulse Ox 97 01/27/25 07:56 O2 Del Method Room Air 01/27/25 07:56 O2 Flow Rate 1 01/26/25 07:21 BMI result Body Mass Index 28.3 Const: General: no acute distress, alert and awake Resp: Effort & Inspection: normal respiratory effort and able to speak in complete sentences Auscultation: clear to auscultation bilaterally Cardio: Rate: regular rate Rhythm: regular rhythm Heart sounds: S1 normal heart sound present and S2 normal heart sound present GI: Palpation (GI): Soft to palpation and nontender Skin: Lesions: no lesions Extrem: General: No edema Objective Data Active Medications Acetaminophen (Acetaminophen 325 Mg Tablet) 975 mg PO Q6H PRN PRN Reason: Pain, Mild 1-3,fever,headache Aspirin (Aspirin 81 Mg Tab.Chew) 81 mg PO DAILY [facility] Last Admin: 01/27/25 08:52 Dose: 81 mg Documented By: BHUPENDRA Atorvastatin Calcium (Atorvastatin Calcium 20 Mg Tablet) 20 mg PO DAILY [facility] Last Admin: 01/27/25 08:52 Dose: 20 mg Documented By: BHUPENDRA Azithromycin (Azithromycin 500 Mg Tablet) 500 mg PO Q24H [facility] Last Admin: 01/27/25 04:02 Dose: 500 mg Documented By: ANDREY Calcium Carbonate (Calcium Carbonate 750 Mg Tab.Chew) 750 mg PO Q4H PRN PRN Reason: Heartburn Ceftriaxone Sodium (Ceftriaxone Sodium 2 Gm Vial) 2 gm IVPUSH Q24H [facility] Last Admin: 01/26/25 21:28 Dose: 2 gm Documented By: ANDREY Clopidogrel Bisulfate (Clopidogrel Bisulfate 75 Mg Tablet) 75 mg PO DAILY [facility] Last Admin: 01/27/25 08:53 Dose: 75 mg Documented By: BHUPENDRA Dextrose (Dextrose 50 % 25 Gm/50 Ml Syringe) 25 gm IVPUSH Q15M PRN; Protocol PRN Reason: per Hypoglycemia Standing Ord. Famotidine (Famotidine 20 Mg Tablet) 20 mg PO TuThSa [facility] Last Admin: 01/25/25 20:30 Dose: 20 mg Documented By: MORTEZA Gabapentin (Gabapentin 100 Mg Capsule) 100 mg PO [facility] Last Admin: 01/25/25 20:30 Dose: 100 mg Documented By: MORTEZA Glucose (Glucose Gel 15 Gm Gel..Gram.) 15 gm PO Q15M PRN; Protocol PRN Reason: per Hypoglycemia Standing Ord. Heparin Sodium (Porcine) (Heparin Sodium,Porcine 5,000 Unit/Ml Vial) 5,000 unit SUBCUT Q12H [facility] Last Admin: 01/27/25 06:00 Dose: 5,000 unit Documented By: ANDREY Insulin Human Lispro (Insulin Lispro 100 Unit/Ml 3 Ml Vial) 0 unit SUBCUT QIDACHS [facility]; Protocol Last Admin: 01/27/25 08:53 Dose: 2 unit Documented By: BHUPENDRA Losartan Potassium (Losartan Potassium 50 Mg Tablet) 100 mg PO DAILY [facility]; Protocol Last Admin: 01/27/25 08:52 Dose: 100 mg Documented By: BHUPENDRA Magnesium Hydroxide (Milk Of Magnesia 30 Ml Oral.Susp) 30 ml PO DAILY PRN PRN Reason: Constipation Melatonin (Melatonin 3 Mg Tablet) 6 mg PO BEDTIME PRN PRN Reason: Insomnia Last Admin: 01/26/25 21:29 Dose: 6 mg Documented By: ANDREY Methocarbamol (Methocarbamol 500 Mg Tablet) 500 mg PO TID PRN PRN Reason: spasms Last Admin: 01/26/25 14:32 Dose: 500 mg Documented By: SARANYA Ondansetron HCl (Ondansetron Hcl 4 Mg/2 Ml Vial) 4 mg IVPUSH Q8H PRN PRN Reason: Nausea and Vomiting Sevelamer Carbonate (Sevelamer Carbonate Powder 800 Mg Powd.Pack) 2,000 mg PO TIDWM [facility] Last Admin: 01/27/25 08:52 Dose: 2,000 mg Documented By: BHUPENDRA Sodium Chloride (0.9 % Sodium Chloride Flush 3 Ml Syringe) 3 [facility] Last Admin: 01/27/25 08:53 Dose: 3 ml Documented By: BHUPENDRA Labs 01/26/25 07:00 01/26/25 07:00 Labs: Laboratory Results - last 24 hr 01/26/25 01/26/25 01/26/25 11:18 16:04 20:46 POC Glucose 359 H* 237 H 260 H 01/27/25 07:06 POC Glucose 189 H Assessment and Plan (1) Abnormal CT of the abdomen: Status: Acute Plan 79F PMH htn, hld, dm, breast ca, esrd on hd (?dr Curiel), presented with rigors Sepsis due to urinary tract infection and possible pneumonia with rhinovirus Continue ceftriaxone azithromycin, negative MRCP, cultures negative weakness pt recommending STR End-stage renal disease Continue hemodialysis Chronic anemia due to renal disease Stable Diabetes Insulin sliding scale DVT prophylaxis-heparin Full code reason for continued hospitalization:dispo planning Quality Stroke Does the patient have a stroke diagnosis?: No VTE Prior VTE?: No VTE Risk Level:: Medical - moderate - high VTE Device Contraindication: Treatment Not Indicated VTE Drug Contraindication: N/A - Med Ordered
--- NOTE | 2025-01-27 09:22 | P.DS_ITS ---
DS: Providers Provider Date of Service: 01/28/25 Date of admission: 01/23/25 05:35 Date of discharge: 01/28/25 Primary care physician: Teresa Scales NP Consults: 01/23/25 07:11 Consult to Nephrology Routine Consulting Provider: [facility] [place] [facility] Reason for consultation: esrd 01/23/25 19:22 Consult to Wound Care Routine Reason for consultation: small open skin area to right buttocks DS: Diagnosis Discharge Diagnosis (1) Abnormal CT of the abdomen: Status: Acute DS: Summary Hospital Course Hospital Course: from initial hpi: 79-year-old female with a past medical history significant for hypertension, hyperlipidemia, type 2 diabetes, history breast cancer and 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 The patient went for dialysis on Monday and was feeling okay, later to soon HH started to feel weak and tired and last night the patient's daughter called EMS as her weakness and fatigue had not improved. The patient denies any additional symptoms including headache, chest pain, shortness of breath, cough, abdominal pain or urinary symptoms. She reports that she rarely urinates but has not had any changes including dysuria or difficulty with urination. Pt is a poor historian. hospital course: Patient was admitted for sepsis due to possible urinary tract infection and possible pneumonia with coronavirus. Was treated with ceftriaxone azithromycin, underwent MRCP to rule out cholangitis which was negative. Urine and blood cultures were negative. Sepsis resolved and patient will be discharged on 3 more days of cefuroxime and azithromycin. For weakness was seen by physical therapy recommended short-term rehab to which patient will be discharged she is expected to require less than 30 days. For end-stage renal disease was continued on hemodialysis. For chronic anemia due to renal disease remained stable. For diabetes was continued on insulin sliding scale. Time Attestation Discharge Coordination Time (in mins): 32 Quality: Safe Use of Opioids Does Pt have an Active Cancer Diagnosis on the Problem List?: No Quality: Stroke Does the patient have a stroke diagnosis?: No Physical Exam Vital Signs: Vital Signs: Last Vital Signs Temp 98.2 F 01/27/25 07:56 Pulse 84 01/27/25 07:56 Resp 20 01/27/25 07:56 BP 117/53 L 01/27/25 07:56 Pulse Ox 97 01/27/25 07:56 O2 Del Method Room Air 01/27/25 07:56 O2 Flow Rate 1 01/26/25 07:21 BMI result Body Mass Index 28.3 Const: General: no acute distress, alert and awake Resp: Effort & Inspection: normal respiratory effort and able to speak in complete sentences Auscultation: clear to auscultation bilaterally Cardio: Rate: regular rate Rhythm: regular rhythm Heart sounds: S1 normal heart sound present and S2 normal heart sound present GI: Palpation (GI): Soft to palpation and nontender Skin: Lesions: no lesions Extrem: General: No edema DS: Data Data Completed and Pending Labs on day of discharge: Laboratory Results - last 24 hr 01/26/25 01/26/25 01/26/25 11:18 16:04 20:46 POC Glucose 359 H* 237 H 260 H 01/27/25 07:06 POC Glucose 189 H Preliminary micro results at discharge 01/23/25 00:55 Blood Culture - Preliminary Blood - Venous No growth after 48 hours. 01/23/25 00:55 Blood Culture - Preliminary Blood - Venous No growth after 48 hours. Discharge Plan Discharge Anticipated Discharge Date/Time: 01/27/25 09:20 Patient Disposition: Xfer SNF Discharge Diagnosis: sepsis, pna Referrals: [place]Teresa Kinney, PERSON[employer] QUALITY ASSURANCE AUDITOR [Primary Care Provider, Nursing] - 1 Week Discharge Medications: New azithromycin 500 mg Tablet 500 mg PO Q24H 3 Days Qty: 0 0RF cefuroxime axetil 250 mg tablet 250 mg PO BID 3 Days Qty: 6 0RF Continued atorvastatin 20 mg tablet 20 mg PO DAILY clopidogrel 75 mg tablet 75 mg PO DAILY famotidine 20 mg tablet 20 mg PO DAILY gabapentin 100 mg capsule 100 mg PO DAILY losartan 100 mg tablet 100 mg PO DAILY sevelamer carbonate 2.4 gram powder in packet 2 g PO TIDWM aspirin 81 mg Tablet,Chewable 81 mg PO DAILY Trulicity 4.5 mg/0.5 mL Pen Injector 4.5 mg SUBCUT QWEEK Discharge Orders: Discharge Order (Routine); Ordered 01/28/25 Ordered By: Torito Figueroa Diet: Advance to usual diet Activity on Discharge: As tolerated Stand Alone Forms: Patient Portal Discharge page Print Language: Urdu Care Plan Goals: recovery Health Concerns: pna, rhinovirus Plan of Treatment: 3 more days cefitn ,anaro Assessment: see above
[2025-01-27 11:03] LABS: Glucose, Whole Blood 431 mg/dL (60-115)
--- NOTE | 2025-01-27 11:21 | MHC.CM.PN ---
Addendum entered by Kathy Sosa 01/27/25 13:40: [facility] does not have an available HD slot. [facility], the other of the 2 SNfs that have on-site HD has denied Patient admission. CM spoke with Patient who is in agreement with STR. Patient does not have the means to pay privately for HD transportation from a facility without HD onsite, nor does she have [facility]. has requested that [facility] keep CM updated as to near future availability for a HD slot.Patient has given CM permission to speak with her Daughter/HCP/Deborah as needed. Original Note: Per ROUNDS discussion, Patient is medically cleared for dc today to SNF/STR. [facility] has accepted Patient pending HD available slot.CM awaits further word from [facility] regarding HD slot availability.CM will follow.
--- NOTE | 2025-01-27 14:19 | MHC.CLN ---
F/U PT WITH INCREASED NUTRITION RISK R/T PRESSURE INJURY DIET RX 1800DM, 2GM NA, LOW PHOS. ENSURE CLEAR BID TO PROMOTE WOUND HEALING. SUPP PROVIDES 480KCALS, 16G PROTEIN (SUPPLEMENT IS RENAL FRIENDLY). INTAKE AT MEALS USUALLY 75-100%. MONITOR PO INTAKE AND ENCOURAGE SUPPLEMENTS.
[2025-01-27 15:33] LABS: Glucose, Whole Blood 336 mg/dL (60-115)
[2025-01-27 20:17] LABS: Glucose, Whole Blood 435 mg/dL (60-115)
[2025-01-27] MEDS: Insulin Glargine,Hum.rec.anlog 100 UNIT/ML 10 ML VIAL 12 UNIT SUBCUT (21:18)
[2025-01-27 23:28] LABS: Glucose, Whole Blood 221 mg/dL (60-115)
[2025-01-28 03:37] VITALS: BP 110/44; PULSE 72; RESP 18; TEMP 36.4; O2SAT 96
[2025-01-28 07:26] LABS: Glucose, Whole Blood 212 mg/dL (60-115)
[2025-01-28 07:32] LABS: Hematocrit 29.1 % (37.0-47.0); Hemoglobin 9.7 g/dl (12.0-16.0); Mean Corpuscular HGB Conc 33.3 g/dl (31.0-35.0); Mean Corpuscular Hemoglobin 30.4 pg (27.0-33.0); Mean Corpuscular Volume 91.2 fL (80.0-98.0); NRBC Abs Auto 0.000 X10*3/uL (0.0-0.012); NRBC Pct Auto 0.0 /100WBC (0.0-0.2); Platelet Count 180 X10*3/uL (160-400); Red Blood Count 3.19 X10*6/uL (4.20-5.50); White Blood Count 6.1 X10*3/uL (4.8-10.8)
[2025-01-28 07:53] VITALS: BP 101/48; PULSE 86; RESP 20; TEMP 36.4; O2SAT 99
[2025-01-28 07:55] LABS: Anion Gap 21 (12-20); Blood Urea Nitrogen 47 mg/dL (9-16); Calcium 8.7 mg/dL (8.4-10.2); Carbon Dioxide 26 mmol/L (22-29); Chloride 97 mmol/L (96-108); Creatinine Clr Calc Pharmacy 3.7; Estimated Glomerular Filt Rate 3; Potassium 3.8 mmol/L (3.3-5.1); Sodium 140 mmol/L (135-145)
[2025-01-28] MEDS: Sevelamer Carbonate Powder 800 MG POWD.PACK 2000 MG PO ×2 (08:27→17:25)
[2025-01-28] MEDS: 0.9 % Sodium Chloride Flush 3 ML SYRINGE IVFLUSH ×3 (08:30→21:21)
--- NOTE | 2025-01-28 08:51 | HO.PM.IMPN ---
Subjective Subjective Date of Service: 01/28/25 Interval History: improved Physical Exam Vital Signs: Vital Signs: Last Vital Signs Temp 97.5 F 01/28/25 07:53 Pulse 86 01/28/25 07:53 Resp 20 01/28/25 07:53 BP 101/48 L 01/28/25 07:53 Pulse Ox 99 01/28/25 07:53 O2 Del Method Room Air 01/28/25 07:53 O2 Flow Rate 1 01/26/25 07:21 BMI result Body Mass Index 28.3 Const: General: no acute distress, alert and awake Resp: Effort & Inspection: normal respiratory effort and able to speak in complete sentences Auscultation: clear to auscultation bilaterally Cardio: Rate: regular rate Rhythm: regular rhythm Heart sounds: S1 normal heart sound present and S2 normal heart sound present GI: Palpation (GI): Soft to palpation and nontender Skin: Lesions: no lesions Extrem: General: No edema Objective Data Active Medications Acetaminophen (Acetaminophen 325 Mg Tablet) 975 mg PO Q6H PRN PRN Reason: Pain, Mild 1-3,fever,headache Aspirin (Aspirin 81 Mg Tab.Chew) 81 mg PO DAILY [facility] Last Admin: 01/28/25 08:27 Dose: 81 mg Documented By: VINICIO Atorvastatin Calcium (Atorvastatin Calcium 20 Mg Tablet) 20 mg PO DAILY [facility] Last Admin: 01/28/25 08:27 Dose: 20 mg Documented By: VINICIO Azithromycin (Azithromycin 500 Mg Tablet) 500 mg PO Q24H [facility] Last Admin: 01/28/25 05:20 Dose: 500 mg Documented By: KALPESH Calcium Carbonate (Calcium Carbonate 750 Mg Tab.Chew) 750 mg PO Q4H PRN PRN Reason: Heartburn Ceftriaxone Sodium (Ceftriaxone Sodium 2 Gm Vial) 2 gm IVPUSH Q24H [facility] Last Admin: 01/27/25 21:18 Dose: 2 gm Documented By: KALPESH Clopidogrel Bisulfate (Clopidogrel Bisulfate 75 Mg Tablet) 75 mg PO DAILY [facility] Last Admin: 01/28/25 08:27 Dose: 75 mg Documented By: VINICIO Dextrose (Dextrose 50 % 25 Gm/50 Ml Syringe) 25 gm IVPUSH Q15M PRN; Protocol PRN Reason: per Hypoglycemia Standing Ord. Famotidine (Famotidine 20 Mg Tablet) 20 mg PO TuThSa [facility] Last Admin: 01/25/25 20:30 Dose: 20 mg Documented By: MORTEZA Gabapentin (Gabapentin 100 Mg Capsule) 100 mg PO [facility] Last Admin: 01/25/25 20:30 Dose: 100 mg Documented By: MORTEZA Glucose (Glucose Gel 15 Gm Gel..Gram.) 15 gm PO Q15M PRN; Protocol PRN Reason: per Hypoglycemia Standing Ord. Heparin Sodium (Porcine) (Heparin Sodium,Porcine 5,000 Unit/Ml Vial) 5,000 unit SUBCUT Q12H [facility] Last Admin: 01/28/25 05:20 Dose: 5,000 unit Documented By: KALPESH Comments: early per pt req Insulin Glargine (Insulin Glargine,Hum.Rec.Anlog 100 Unit/Ml 10 Ml Vial) 12 unit SUBCUT BEDTIME [facility] Last Admin: 01/27/25 21:18 Dose: 12 unit Documented By: KALPESH Insulin Human Lispro (Insulin Lispro 100 Unit/Ml 3 Ml Vial) 0 unit SUBCUT QIDAS [facility]; Protocol Last Admin: 01/28/25 08:22 Dose: Not Given Documented By: VINICIO Non-Admin Reason: Physician Approved Insulin Human Lispro (Insulin Lispro 100 Unit/Ml 3 Ml Vial) 5 unit SUBCUT QIDAS [facility] Last Admin: 01/28/25 08:30 Dose: 5 unit Documented By: VINICIO Losartan Potassium (Losartan Potassium 50 Mg Tablet) 100 mg PO DAILY [facility]; Protocol Last Admin: 01/28/25 08:23 Dose: Not Given Documented By: VINICIO Non-Admin Reason: Physician Approved Magnesium Hydroxide (Milk Of Magnesia 30 Ml Oral.Susp) 30 ml PO DAILY PRN PRN Reason: Constipation Melatonin (Melatonin 3 Mg Tablet) 6 mg PO BEDTIME PRN PRN Reason: Insomnia Last Admin: 01/26/25 21:29 Dose: 6 mg Documented By: ANDREY Methocarbamol (Methocarbamol 500 Mg Tablet) 500 mg PO TID PRN PRN Reason: spasms Last Admin: 01/26/25 14:32 Dose: 500 mg Documented By: SARANYA Ondansetron HCl (Ondansetron Hcl 4 Mg/2 Ml Vial) 4 mg IVPUSH Q8H PRN PRN Reason: Nausea and Vomiting Sevelamer Carbonate (Sevelamer Carbonate Powder 800 Mg Powd.Pack) 2,000 mg PO TIDWM [facility] Last Admin: 01/28/25 08:27 Dose: 2,000 mg Documented By: VINICIO Sodium Chloride (0.9 % Sodium Chloride Flush 3 Ml Syringe) 3 ml IVFLUSH QSHIFT [facility] Last Admin: 01/28/25 08:30 Dose: 3 ml Documented By: VINICIO Labs 01/28/25 06:53 01/28/25 06:53 Labs: Laboratory Results - last 24 hr 01/27/25 01/27/25 01/27/25 10:59 15:27 20:14 MCV MCH MCHC RDW Plt Count MPV Absolute Nucleated RBC Nucleated RBC % (auto) Anion Gap Estim Creat Clear Calc Estimated GFR POC Glucose 431 H* 336 H 435 H* Random Glucose Calcium Phosphorus 01/27/25 01/28/25 01/28/25 23:25 06:53 07:18 MCV 91.2 MCH 30.4 MCHC 33.3 RDW 14.0 Plt Count 180 D MPV 10.2 Absolute Nucleated RBC 0.000 Nucleated RBC % (auto) 0.0 Anion Gap 21 H Estim Creat Clear Calc 3.7 Estimated GFR 3 POC Glucose 221 H 212 H Random Glucose 152 H Calcium 8.7 Phosphorus 6.6 H Microbiology Microbiology Results: Microbiology 01/23/25 00:55 Blood Culture - Final Blood - Venous No growth after 5 days. 01/23/25 00:55 Blood Culture - Final Blood - Venous No growth after 5 days. Assessment and Plan (1) Abnormal CT of the abdomen: Status: Acute Plan 79F PMH htn, hld, dm, breast ca, esrd on hd (?dr Curiel), presented with rigors Sepsis due to urinary tract infection and possible pneumonia with rhinovirus Continue ceftriaxone azithromycin (plan for 3 more days ceftin/azithro on discharge), negative MRCP, cultures negative weakness pt recommending STR End-stage renal disease Continue hemodialysis Chronic anemia due to renal disease Stable Diabetes Insulin sliding scale DVT prophylaxis-heparin Full code reason for continued hospitalization:dispo planning Quality Stroke Does the patient have a stroke diagnosis?: No VTE Prior VTE?: No VTE Risk Level:: Medical - moderate - high VTE Device Contraindication: Treatment Not Indicated VTE Drug Contraindication: N/A - Med Ordered
--- NOTE | 2025-01-28 10:50 | W.PM.DNNEP ---
Subjective Subjective Date of Service: 01/28/25 This patient was seen during dialysis. Interval history: No new events noted. Here sepsis due to UTI, ?pneumonia, rhinovirus. patient denies new complaints/concerns. Physical Exam Vital Signs: Vital Signs: Last Vital Signs Temp 97.5 F 01/28/25 07:53 Pulse 86 01/28/25 07:53 Resp 20 01/28/25 07:53 BP 101/48 L 01/28/25 07:53 Pulse Ox 99 01/28/25 07:53 O2 Del Method Room Air 01/28/25 07:53 O2 Flow Rate 1 01/26/25 07:21 BMI result Body Mass Index 28.3 Const: General: no acute distress, alert and awake Resp: Effort & Inspection: normal respiratory effort and able to speak in complete sentences Auscultation: clear to auscultation bilaterally Cardio: Rate: regular rate Rhythm: regular rhythm Heart sounds: S1 normal heart sound present and S2 normal heart sound present GI: Palpation (GI): Soft to palpation and nontender Skin: Lesions: no lesions Extrem: General: No edema Assessment & Plan Assessment and plan (1) ESRD (end stage renal disease) on dialysis: Status: Acute Plan ESRD on TTS, will get HD today per her outpatient schedule no uremic symptoms today labs unremarkable- electrolytes within normal limits no metabolic acidosis at this time H&H 9.7 & 29, no indication for procrit at this time left upper extremity fistula with +thrill, +bruit phosphorus 6.6- ensure compliance with sevelamer TID with meals recommend low sodium, low potassium, low phosphorus diet recommend fluid restriction 1.5L/24 hours continue supportive care Discussed with Dr Rand. Time Spent With Patient Time: Total time managing care of this patient today ____ minutes. Procedures Date of Service Date of Service: 01/28/25
--- NOTE | 2025-01-28 11:11 | HO.WOUND ---
Wound Consult: Follow UP 79 yr old [place] [facility] - See progress notes and H&P for detailed history. Wound consult placed for right buttock, follow up today. Patient agreeable to assessment and photo documentation. Patient able to turn to side in bed for assessment. Patient reports wounding to her bottom from sitting too much at home . She reports treating the area with cocoa butter which resulted in healing at some point. The wound is improved from previous assessment today. Right Buttock 01/24/25 Right Buttock today 01/28/25 Etiology: stage 3 pressure injury Present on Admission - healing Measurements: 0.3cm x 0.3cm x 0.1cm Wound Bed: small and shallow but full thickness, moist pink Drainage / Odor: scant serous/serosang Edges: ? open, pale pink/white scar tissue Kimberly wound: ? No Induration, Fluctuance or Warmth noted, hyperpigmentation Pain: none Goals of Treatment: ? offloading, moist healing with foam dressing Recommendations: 1. Turn and Reposition every 2 hours and as needed for patient comfort. Use pillows or wedges to support off loading positions. 2. Off Load all bony prominences with use of pillows and heel boots if needed. Apply Preventative foams where needed. 3. Monitor for incontinence and moisture control, use barrier creams when needed for prevention and treatment. 4. Provide adequate and supplemental nutrition. 5. Order or Continue low air loss mattress. 6. When applicable maintain blood glucose levels per Providers order. Right Buttock: Off Load Pressure with Q2 hr turns and use of pillows - Routine cleansing. Apply skin prep allow to dry. Cover with foam dressing to aid in off loading and protection from friction. Change every 3 days and PRN. Re-consult wound care Nurse for wound deterioration or wound changes.
--- NOTE | 2025-01-28 11:38 | MHC.CM.PN ---
Addendum entered by Tatum Ennis 01/28/25 16:14: New HCP completed with pt, now on file. Original Note: EMR reviewed and per MD rounds, pt is medically cleared for discharge to STR. No bed offers for STR at [facility] or [facility] (SNF's with HD). STR referral expanded in [facility], new bed offer received from [facility], they will set up PVTA rides for the pt to get to HD. This CM met with pt to discuss STR bed offer at [facility], she accepts the bed offer. [facility] is pursuing insurance auth, and wont have a bed available until tomorrow. Hospitalist updated.
--- NOTE | 2025-01-28 11:57 | P.CDIM_ITS ---
PROVIDER RESPONSE TEXT: To clarify, the appropriate diagnosis supported by the clinical indicators: DM 2 with hyperglycemia QUERY TEXT: PHYSICIAN'S DOCUMENTATION REQUEST Date of Query: 01/28/2025 11:45 AM EDT Patient Name: Alessandra King Admit Date: 01/23/2025 Dear Torito Figueroa MD, A review of the medical record indicates additional documentation may be needed. Please review below and update the documentation accordingly. Clinical Indicators: glucose level on 01/26/25: 359 glucose level on 01/27/25: 431, 435 DM on Insulin sliding scale Please clarify the following regarding the Complications of Diabetes Mellitus (DM): DM 2 with hyperglycemia No complications of DM Other (explain) Clinically unable to determine (explain) Thank you, Ines Mojica RN Use of terms such as suspected, likely, concern for, or probable (associated with a specific diagnosis that is being evaluated, monitored, or treated as if it exists) are acceptable and can be coded in the inpatient setting, when documented at the time of discharge. Please use your independent medical judgment in providing your response. THIS QUERY IS PART OF THE PERMANENT MEDICAL RECORD
[2025-01-28 13:52] LABS: Glucose, Whole Blood 141 mg/dL (60-115)
[2025-01-28 14:08] VITALS: BP 112/48; PULSE 81; RESP 20; TEMP 36.6; O2SAT 98
[2025-01-28 15:54] LABS: Glucose, Whole Blood 252 mg/dL (60-115)
[2025-01-28 15:57] VITALS: BP 102/44; PULSE 88; RESP 18; O2SAT 97
[2025-01-28 20:00] VITALS: BP 108/54; PULSE 95; RESP 16; TEMP 36.7; O2SAT 98
[2025-01-28 20:24] LABS: Glucose, Whole Blood 312 mg/dL (60-115)
[2025-01-28] MEDS: Insulin Glargine,Hum.rec.anlog 100 UNIT/ML 10 ML VIAL 12 UNIT SUBCUT (21:21)
[2025-01-28 23:15] VITALS: BP 100/44; PULSE 79; RESP 18; TEMP 36.8; O2SAT 100
[2025-01-29 03:18] VITALS: BP 104/49; PULSE 74; RESP 18; TEMP 36.5; O2SAT 94
[2025-01-29 07:46] LABS: Glucose, Whole Blood 122 mg/dL (60-115)
[2025-01-29 08:17] VITALS: BP 111/43; PULSE 78; RESP 18; TEMP 36.2; O2SAT 100
[2025-01-29] MEDS: Sevelamer Carbonate Powder 800 MG POWD.PACK 2000 MG PO ×2 (09:16→12:14)
[2025-01-29] MEDS: 0.9 % Sodium Chloride Flush 3 ML SYRINGE IVFLUSH (09:19)
--- NOTE | 2025-01-29 10:41 | MHC.CLN ---
F/U PT WITH INCREASED NUTRITION RISK R/T PRESSURE INJURY PO INTAKE 75-100% DIET RX 1800DM, 2GM NA, LOW PHOS ENSURE CLEAR BID TO PROMOTE WOUND HEALING SUPP PROVIDES 480KCALS, 16G PROTEIN (SUPPLEMENT IS RENAL FRIENDLY) CONTINUE TO MONITOR PO INTAKE AND ENCOURAGE SUPPLEMENTS
--- NOTE | 2025-01-29 11:16 | MHC.CM.PN ---
Insurance auth received for pt to go to [facility] today, she will transport there via [facility]. Second IMM given 01/29. Pt is aware and in agreement with the discharge plan. Per pts request, this CM called pts daughter/HCP Deborah to notify her of the discharge plan.
[2025-01-29 11:38] LABS: Glucose, Whole Blood 352 mg/dL (60-115)
[2025-01-29 11:52] VITALS: BP 119/52; PULSE 97; RESP 20; TEMP 36.4; O2SAT 98
--- NOTE | 2025-01-29 13:33 | P.DS_ITS ---
DS: Providers Provider Date of Service: 01/29/25 Date of admission: 01/23/25 05:35 Date of discharge: 01/29/25 Primary care physician: Teresa Scales NP Consults: 01/23/25 07:11 Consult to Nephrology Routine Consulting Provider: [facility] Reason for consultation: esrd 01/23/25 19:22 Consult to Wound Care Routine Reason for consultation: small open skin area to right buttocks Attending physician on discharge: Dylon Cottrell Discharging clinician: Dylon Cottrell DS: Diagnosis Discharge Diagnosis (1) ESRD (end stage renal disease) on dialysis: Status: Acute DS: Summary Hospital Course Hospital Course: from initial hpi: 79-year-old female with a past medical history significant for hypertension, hyperlipidemia, type 2 diabetes, history breast cancer and ESRD on HD TTS (manager infusion unknown), who presented to the ED due to weakness and shakiness for the past 2 days. The patient went for dialysis on Monday and was feeling okay, later to soon HH started to feel weak and tired and last night the patient's daughter called EMS as her weakness and fatigue had not improved. The patient denies any additional symptoms including headache, chest pain, shortness of breath, cough, abdominal pain or urinary symptoms. She reports that she rarely urinates but has not had any changes including dysuria or difficulty with urination. Pt is a poor historian. hospital course: Patient was admitted for sepsis due to possible urinary tract infection and possible pneumonia with rhino/entrovirus. Was treated with ceftriaxone azithromycin, underwent MRCP to rule out cholangitis which was negative. Urine and blood cultures were negative. Sepsis resolved and patient will be discharged on 3 more days of cefuroxime and azithromycin(repeat chest imaging in 3-4 weeks to see resolution of pneumonia). For weakness was seen by physical therapy recommended short-term rehab to which patient will be discharged she is expected to require less than 30 days. For end-stage renal disease was continued on hemodialysis. For chronic anemia due to renal disease remained stable. For diabetes was continued on insulin sliding scale. Mrcp incidental findings:3.4 cm simple appearing cystic lesion in the region of the left ovary.There are 3 left renal cysts: consider outpatient treatment specialist and urology evaluation out patiently. Her daughter miss Deborah Mariano updated.Assessment and plan coordination time spent 45 minute. Time Attestation Total time managing care of this patient today: 45 mintues. Discharge Coordination Time (in mins): 45 min Quality: Safe Use of Opioids Does Pt have an Active Cancer Diagnosis on the Problem List?: No Quality: Stroke Does the patient have a stroke diagnosis?: No Physical Exam Exam: Exam: Appearance: not in distress.? cvs: rrr, [id number] . res: clear to auscultation ,no rhonchii or wheezing abd: no rebound or guarding ,nt, bs present. ext pulses present , no cyanosis . neuro:nonfocal. Vital Signs: Vital Signs: Last Vital Signs Temp 97.5 F 01/29/25 11:52 Pulse 97 01/29/25 11:52 Resp 20 01/29/25 11:52 BP 119/52 L 01/29/25 11:52 Pulse Ox 98 01/29/25 11:52 O2 Del Method Room Air 01/29/25 11:52 O2 Flow Rate 1 01/26/25 07:21 BMI result Body Mass Index 28.3 DS: Data Data Completed and Pending Labs on day of discharge: Laboratory Results - last 24 hr 01/28/25 01/28/25 01/28/25 13:49 15:50 20:15 POC Glucose 141 H 252 H 312 H 01/29/25 01/29/25 07:43 11:33 POC Glucose 122 H 352 H* Imaging Chest x-ray: My impression: mrcp: 1. No choledocholithiasis. 2. Cholelithiasis. 3. Normal appearance of the pancreas. 4. 3.4 cm simple appearing cystic lesion in the region of the left ovary. 5. There are 3 left renal cysts. Discharge Plan Discharge Anticipated Discharge Date/Time: 01/27/25 09:20 Patient Disposition: Xfer SNF Discharge Diagnosis: sepsis, pna Referrals: [facility] [Outside] - 1 Week [place], [facility] [Primary Care Provider, Nursing] - 1 Week Discharge Medications: New azithromycin 500 mg Tablet 500 mg PO Q24H 3 Days Qty: 0 0RF cefuroxime axetil 250 mg tablet 250 mg PO BID 3 Days Qty: 6 0RF Continued atorvastatin 20 mg tablet 20 mg PO DAILY clopidogrel 75 mg tablet 75 mg PO DAILY famotidine 20 mg tablet 20 mg PO DAILY gabapentin 100 mg capsule 100 mg PO DAILY losartan 100 mg tablet 100 mg PO DAILY sevelamer carbonate 2.4 gram powder in packet 2 g PO TIDWM aspirin 81 mg Tablet,Chewable 81 mg PO DAILY Trulicity 4.5 mg/0.5 mL Pen Injector 4.5 mg SUBCUT QWEEK Discharge Orders: Discharge Order (Routine); Ordered 01/28/25 Ordered By: Torito Figueroa Diet: Advance to usual diet Activity on Discharge: As tolerated Stand Alone Forms: Patient Portal Discharge page Print Language: Hungarian Care Plan Goals: recovery Health Concerns: pna, rhinovirus Plan of Treatment: 3 more days andra bee Assessment: see above Patient Instructions: Pneumonia (DC) Discharge Date/Time: 01/29/25 14:31
== END 2025-01-29 14:31 | disposition skilled nursing facility (03) | DRG 871 ==
LOC: HO.ED 05:19 → HO.EDOVER 05:40 → HO.IMC 14:05
PROVIDERS: Internal Medicine; Nurse Practitioner Family; Admitting Provider Physician Assistant; Emergency Provider Emergency Medicine; PCP Nurse Practitioner Family; Visit Provider Internal Medicine
DX: A41.9 Sepsis, unspecified organism (principal); J18.9 Pneumonia, unspecified organism; N18.6 End stage renal disease; I12.0 Hypertensive chronic kidney disease with stage 5 chronic kidney disease or end stage renal disease; N39.0 Urinary tract infection, site not specified; B97.89 Other viral agents as the cause of diseases classified elsewhere; Z99.2 Dependence on renal dialysis; E11.65 Type 2 diabetes mellitus with hyperglycemia; B97.10 Unspecified enterovirus as the cause of diseases classified elsewhere; E11.22 Type 2 diabetes mellitus with diabetic chronic kidney disease; D63.1 Anemia in chronic kidney disease; E78.5 Hyperlipidemia, unspecified; F17.210 Nicotine dependence, cigarettes, uncomplicated; Z71.6 Tobacco abuse counseling; Z20.822 Contact with and (suspected) exposure to COVID-19; Z79.02 Long term (current) use of antithrombotics/antiplatelets; Z79.82 Long term (current) use of aspirin; Z79.899 Other long term (current) drug therapy
CPT/HCPCS: 36415; 71045; 74176; 74181; 80048; 80053; 81001; 82947; 83036; 83605; 83735; 84100; 84443; 85025; 85027; 85610; 86140; 87040; 87086; 87633; 87637; 90999; 93005; 97163; 99285; J0131; J0456; J0696; J1644

== ENCOUNTER → 2025-01-23 00:32 | Outpatient (BNV) | payer MEDICARE, SELFPAY | PROVIDERS: Emergency Provider Emergency Medicine; Visit Provider Radiology Diagnostic Radiology | DX: R93.422 Abnormal radiologic findings on diagnostic imaging of left kidney (principal); N83.202 Unspecified ovarian cyst, left side; R50.9 Fever, unspecified | CPT/HCPCS: 71045; 74176; 74181 ==

== ENCOUNTER → 2025-01-23 00:37 | Outpatient (BNV) | payer MEDICARE, SELFPAY | PROVIDERS: Admitting Provider Physician Assistant; Emergency Provider Emergency Medicine; Visit Provider Internal Medicine Cardiovascular Disease | DX: I49.1 Atrial premature depolarization (principal); R00.0 Tachycardia, unspecified | CPT/HCPCS: 93010 ==

== ENCOUNTER → 2025-01-23 05:35 | Outpatient (BNV) | payer MEDICARE, SELFPAY | PROVIDERS: Admitting Provider Physician Assistant; Emergency Provider Emergency Medicine; Visit Provider Nurse Practitioner Family | DX: N18.6 End stage renal disease (principal); Z99.2 Dependence on renal dialysis | CPT/HCPCS: 99222 ==

== ENCOUNTER → 2025-01-23 05:35 | Outpatient (BNV) | payer MEDICARE, SELFPAY | PROVIDERS: Admitting Provider Physician Assistant; Emergency Provider Emergency Medicine; Visit Provider Internal Medicine | DX: A41.9 Sepsis, unspecified organism (principal); N39.0 Urinary tract infection, site not specified | CPT/HCPCS: 99499 ==

== ENCOUNTER 2025-04-03 05:51 | Inpatient (IN) | payer MEDICARE, SELFPAY ==
--- NOTE | ~2025-04-03 | CT_ITS ---
EXAMINATION: CT ABDOMEN AND PELVIS WITHOUT CONTRAST CLINICAL INFORMATION: Upper abdominal pain. Vomiting. Patient on dialysis. COMPARISON: January 23, 2025 TECHNIQUE: Multidetector volumetric imaging was performed from the superior aspect of the liver through the pubic symphysis. Sagittal and coronal reformatted images were obtained on the technologist's workstation. This CT examination was performed using dose optimization techniques as appropriate, variously including the following: *Automated exposure control *Adjustment of mA and/or kV according to patient size (this includes techniques or standardized protocols for targeted exams where dose is matched to indication/reason for exam; i.e. extremities or head) *Use of iterative reconstruction technique DLP: 773 mGy-cm FINDINGS: Inadequate evaluation of the intra-abdominal solid organs and vascular structures due to lack of IV contrast. LUNG BASES: Linear attenuation abnormalities and to a lesser extent patchy pulmonary groundglass, lower lung lobes, right middle lung lobe and lingula. LIVER, GALLBLADDER, AND BILIARY TREE: There are measures 17 cm with a subtle nodular surface. Gallbladder is distended/prominent. The gallbladder wall measures 4 mm. Multiple layering round hyperdensities in the gallbladder neck. No intrahepatic or extrahepatic biliary ductal dilatation. PANCREAS: No peripancreatic fluid collections. No main pancreatic ductal dilatation. SPLEEN: 10 cm. ADRENAL GLANDS: No nodular lesions. KIDNEYS AND URETERS: Volume loss. No hydronephrosis. Probable nonobstructing nephrolithiasis in combination with vascular calcifications. Probable complex cystic lesions bilaterally most conspicuous in the posterior midportion of the left kidney. Focal hyperintense lesion in the midportion of the left kidney. BLADDER: Collapsed with wall thickening. GASTROINTESTINAL TRACT: Abundant stool throughout the large intestine. No intestinal obstruction pattern. No pneumatosis intestinalis. Scattered diverticula, left hemicolon/sigmoid colon. I cannot clearly identify the appendix, though no pericecal edema pattern. No pneumoperitoneum. No ascites. No fluid collection, peritoneal cavity. ABDOMINAL WALL: Scarring, likely infraumbilical midline incision. LYMPH NODES: No lymphadenopathy. VASCULAR: Mixed plaques throughout the aorta and iliac arteries without gross aneurysm. Calcified plaques in the ascending aorta/aortic valve, coronary arteries and likely mitral valve. Prominent left ventricle. Calcified plaques in the origin of the mesenteric arteries and the renal arteries. Calcified plaques in the femoral arteries. PELVIC VISCERA: 4 cm cystic lesion left adnexa. OSSEOUS STRUCTURES: Multilevel thoracolumbar spondylosis and a shaped curvature which could be positional. Degenerative changes in the coxofemoral joints. Grade 1 anterolisthesis L4-5 on a degenerative basis. Grade 1 retrolisthesis L5-S1. Vacuum phenomenon at L5-S1. Central spinal canal and bilateral neuroforamina stenosis at L4-5 and L5-S1. Multilevel Schmorl nodes throughout the axial skeleton. CT/CT abdomen pelvis wo IV con IMPRESSION: Concerning acute calculus cholecystitis in the correct clinical settings. Fleischner guidelines were followed. Electronically signed by: Ector Mccord MD 04/03/2025 08:59 AM EST
--- NOTE | ~2025-04-03 | XR_ITS ---
EXAMINATION: XR CHEST 1 VIEW HISTORY: abd pain, vomiting COMPARISON: Comparison is made with the prior examination dated 01/23/2025. FINDINGS: A single AP portable view of the chest performed at 8:12 AM is submitted. The patient is rotated to the left. There is scarring in the left midlung. There are calcified granulomas in the right middle lobe. There is no pleural effusion, pneumothorax, or pulmonary vascular congestion. The heart is normal in size. The aorta is calcified. There is degenerative disc disease of the spine. XR/XR chest 1V IMPRESSION: No acute cardiopulmonary abnormality. Electronically signed by: Logan Collins MD 04/03/2025 08:25 AM [facility]
--- NOTE | ~2025-04-03 | US_ITS ---
EXAMINATION: US ABDOMEN LIMITED CLINICAL INFORMATION: Concerning cholecystitis. Upper abdominal pain and vomiting.. COMPARISON: Correlated to CT dated April 03, 2025. TECHNIQUE: Real-time ultrasound of the gallbladder/right upper quadrant abdomen using grayscale and color Doppler technique. FINDINGS: Gallbladder is fluid-filled mildly prominent with intraluminal layering hyperechoic lesions and posterior shadowing near the gallbladder neck. The gallbladder wall measures 7 mm. There is sonographic Pelayo's sign elicited by the ophthalmic medical technologist. Common bile duct measures 4 mm. US/US abdomen limited IMPRESSION: Concerning acute calculus cholecystitis in the correct clinical settings. Electronically signed by: Ector Mccord MD 04/03/2025 10:35 AM EST
[2025-04-03 05:53] VITALS: BP 142/88; PULSE 108; RESP 20; TEMP 36.6; O2SAT 98; BMI 34.3
--- NOTE | 2025-04-03 06:11 | ED.GENADULT ---
HPI - General Adult General Chief complaint: Abdominal Pain Stated complaint: abd pain Time Seen by Provider: 04/03/25 06:11 History of Present Illness ED Provider: Juan LIU narrative: The patient is a 79-year-old woman who was a dialysis patient. She thinks that she has been requiring dialysis for about a little more than a year. The patient is currently staying at a correction facility. I believe that she has been at the correction facility for about 2 months following her most recent hospitalization at this hospital. The patient had last presented to this hospital on 01/23/2025, 2 months ago. She has been admitted to the hospital for evaluation of weakness and was found to have a fever. She was treated with empiric antibiotics and admitted to the hospital. She was discharged 1 week later on January 29 and discharged to the correction facility. She was discharged to finish a course of antibiotics for a possible pneumonia. She was discharged on cefuroxime and azithromycin. She was discharged to short-term rehab to help improve her weakness. She has a remained at the facility since discharge. The patient says that over the last few weeks she has felt a deterioration in her health. She says that she has developed a chronic shakiness and also developed a new stutter. However she comes to the emergency room today because during the middle of the night last night she developed upper abdominal pain and vomited 3 times. This was not associated with any fever. This was not associated with any diarrhea. During her last hospitalization she had a CT scan of the abdomen and pelvis without contrast. There was a possible small cholelithiasis. Additionally there was a question of choledocholithiasis. She subsequently had an MRCP that showed no evidence of choledocholithiasis. There were however multiple dependent stones within the gallbladder. There was normal anatomy of the pancreatic duct and no dilation of the duct or any filling defects. The pancreas was normal. Related Data Home Medications ?Medication ?Instructions ?Recorded ?Confirmed aspirin 81 mg chewable tablet 81 mg PO DAILY 01/23/25 01/23/25 atorvastatin 20 mg tablet 20 mg PO DAILY 01/23/25 01/23/25 clopidogrel 75 mg tablet 75 mg PO DAILY 01/23/25 01/23/25 dulaglutide 4.5 mg/0.5 mL 4.5 mg subcut QWEEK 01/23/25 subcutaneous pen injector (Trulicity) famotidine 20 mg tablet 20 mg PO DAILY 01/23/25 01/23/25 gabapentin 100 mg capsule 100 mg PO DAILY 01/23/25 01/23/25 losartan 100 mg tablet 100 mg PO DAILY 01/23/25 01/23/25 sevelamer carbonate 2.4 gram oral 2 g PO TIDWM 01/23/25 01/23/25 powder packet Allergies Allergy/AdvReac Type Severity Reaction Status Date / Time No Known Allergies Allergy Verified 04/03/25 05:55 Review of Systems Review of Systems: Yes all other systems are reviewed and are negative [facility] Past Medical History Medical History Tobacco use disorder History of breast cancer ESRD (end stage renal disease) on dialysis T2DM (type 2 diabetes mellitus) HLD (hyperlipidemia) HTN (hypertension) Social History Social History Household Members: Children Housing: Long-Term Housing Other:: short term rehab Do you presently have visiting nurse or other home services: No Patient Tobacco Use Status: Current everyday Tobacco user Tobacco use type: Cigarette Smoked in Last 30 Days: Yes Patient Interested in Nicotine Replacement: No Patient Given Instructions on How to Stop Smoking: No (refused) Second Hand Smoke Exposure: No Use of substances other than those prescribed or required for medical reasons: No Have you been hit, kicked, punched, or otherwise hurt by someone within the past year? If so, by whom?: No Do you feel safe in your current relationship?: No Is there a partner from a previous relationship who is making you feel unsafe now?: No Are you made to feel afraid or neglected: No Advance Directives: Yes Advance Directives on File: Yes Advance Directives Date on File: 01/28/25 Do you have a plan to hurt others: No Plan Recently lost weight without trying: Unsure Eating poorly because of decreased appetite: No Nutrition Risks: No Nutritional Risk Patient : No Poor oral hygiene: No service: No Physical Exam ED Vital Signs: Vital Signs - 24 hr 04/03/25 05:53 04/03/25 08:41 04/03/25 10:19 Temperature 98 F 97.7 F Pulse Rate 108 H 99 89 Respiratory Rate 20 17 14 Blood Pressure 142/88 H 150/70 H 147/69 H Pulse Oximetry 98 94 96 Oxygen Delivery Method Room Air Room Air Room Air 04/03/25 12:20 Temperature 97.8 F Pulse Rate 82 Respiratory Rate Blood Pressure 141/58 H Pulse Oximetry 97 Oxygen Delivery Method Room Air BMI result Body Mass Index 34.3 Const Other: The patient is awake and alert. She did not appear in overt distress or toxic. HENMT Other: Face is symmetrical. Mucous membranes moist. Eyes Other: Pupils are round equal, conjunctivae are clear, extraocular movements intact Neck Neck: Yes normal visual inspection and Yes full ROM Resp Effort & Inspection: normal respiratory effort Auscultation: clear to auscultation bilaterally Cardio Rate: regular rate Rhythm: regular rhythm Heart sounds: S1 normal heart sound present and S2 normal heart sound present GI Other: The patient is tender in the epigastrium in the right upper quadrant. The abdomen is otherwise soft and unremarkable. No distention Skin Other: The skin is dry and unremarkable Neuro Other: The patient is awake and alert. She has a normal level of consciousness and seems to have a normal level of alertness. She has some occasional stuttering of her speech but her speech is otherwise appropriate. Cranial nerves are otherwise intact. She moves her extremities symmetrically and seems without a focal neurological deficit. Extrem Other: There is no calf swelling or tenderness. No asymmetry. No peripheral edema. Medications Administered Discontinued Medications Generic Name Dose Route Start Last Admin Trade Name Freq PRN Reason Stop Dose Admin Piperacillin Sod/Tazobactam 100 mls @ 200 mls/hr 04/03/25 11:00 04/03/25 11:51 Sod 4.5 gm/ Sodium Chloride IV 04/03/25 11:29 Infused ONCE ONE Infusion Morphine Sulfate 4 mg 04/03/25 06:19 04/03/25 06:39 Morphine Sulfate 4 Mg/Ml Cartridge IVPUSH 04/03/25 06:20 4 mg ONCE ONE Administration Protocol Ondansetron HCl 4 mg 04/03/25 06:19 04/03/25 06:39 Ondansetron Hcl 4 Mg/2 Ml Vial IVPUSH 04/03/25 06:20 4 mg ONCE ONE Administration Medical Decision Making Medical Decision Making MDM Narrative: The patient is a 79-year-old woman who was a dialysis patient. She presents with a hospital with upper abdominal pain and vomiting that started during the night last night. She has a history of known gallstones according to her imaging studies from a hospitalization here [address] scan of the abdomen and pelvis was done without contrast which raised a question of possible cholecystitis. An ultrasound of the gallbladder was done as well which also suggested probable cholecystitis. On this basis a diagnosis of probable acute calculous cholecystitis was made. The patient was started on piperacillin/tazobactam. I consulted General surgery. I also informed [facility] Nephrology since the patient was supposed to get dialysis today already. The patient was seen by surgery. No plan for surgery today, possibly tomorrow. Because of the patient's medical issues including her need for dialysis the patient will be admitted to the hospitalist service. Lab Data 04/03/25 06:27 04/03/25 06:27 Labs: Lab Results 04/03/25 04/03/25 Range/Units 06:27 11:10 WBC 4.2 L (4.8-10.8) X10*3/uL RBC 4.22 D (4.20-5.50) X10*6/uL Hgb 12.7 D (12.0-16.0) g/dl Hct 38.3 D (37.0-47.0) % MCV 90.8 (80.0-98.0) fL MCH 30.1 (27.0-33.0) pg MCHC 33.2 (31.0-35.0) g/dl RDW 14.5 (11.0-16.0) % Plt Count 173 (160-400) X10*3/uL MPV 9.8 (9.4-12.3) fL Immature Gran % (Auto) 0.5 H (0.0-0.4) % Neut % (Auto) 72.1 (45-73) % Lymph % (Auto) 15.6 L (20-40) % [place] % (Auto) 9.4 (2-11) % Eos % (Auto) 1.9 (0-4) % Baso % (Auto) 0.5 (0-2) % Lymph # (Auto) 0.7 L (1.2-4.9) X10*3/uL [place] # (Auto) 0.4 (0.1-1.2) X10*3/uL Eos # (Auto) 0.1 (0.0-0.4) X10*3/uL Baso # (Auto) 0.0 (0.0-0.2) X10*3/uL Abs Immat Gran (auto) 0.02 (0.00-0.03) X10*3/uL Absolute Neuts (auto) 3.1 (2.0-8.3) x10*3/uL Absolute Nucleated RBC 0.000 (0.0-0.012) X10*3/uL Nucleated RBC % (auto) 0.0 (0.0-0.2) /100WBC Sodium 139 (135-145) mmol/L Potassium 4.4 (3.3-5.1) mmol/L Chloride 98 (96-108) mmol/L Carbon Dioxide 27 (22-29) mmol/L Anion Gap 18 (12-20) BUN 50 H (9-16) mg/dL Creatinine 10.06 H* (0.5-1.4) mg/dL Estim Creat Clear Calc 4.9 Estimated GFR 4 Random Glucose 240 H (60-115) mg/dL Lactic Acid 1.4 (0.5-2.0) mmol/L Calcium 9.0 (8.4-10.2) mg/dL Magnesium 2.1 (1.6-2.6) mg/dL Total Bilirubin 0.7 (0.0-1.0) mg/dL Direct Bilirubin 0.3 (0.0-0.5) mg/dL AST 17 (5-31) U/L ALT 6 (0-31) U/L Alkaline Phosphatase 71 (39-117) U/L Troponin I High Sens 11.1 (<3.5-17.0) ng/L C-Reactive Protein 0.25 (< or = 0.50) mg/dL Total Protein 7.3 (6.5-8.0) g/dL Albumin 4.0 (3.5-5.0) g/dL Lipase 57 (8-78) U/L Influenza Type A (PCR) NEGATIVE (Negative) Influenza Type B (PCR) NEGATIVE (Negative) RSV RNA Qual (PCR) NEGATIVE (Negative) SARS-CoV-2 RNA (RT-PCR) NEGATIVE (Negative) Independent Interpretation I performed an independent interpretation of an: EKG Interpretation: EKG at 06:22 shows sinus tachycardia at 106 beats per minute. No significant change from previous. Critical Care Time Critical Care Time Critical Care Time: Yes Total Critical Care Time: 35 Attestation: The patient was critically ill with a high probability of imminent or life-threatening deterioration. ?I spent greater than 30 minutes of discontinuous time evaluating the patient, delivering critical care at the bedside, discussing evaluating data with consultants. ?Critical care time does not include time spent performing separately billable procedures or teaching. ?Time spent performing critical care with 35 minutes. Discharge Plan Discharge Clinical Impression: Acute cholecystitis, Chronic kidney disease with end stage renal failure on dialysis Patient Disposition: Admitted As Inpatient Interventions: Admission Worksheet (ED) Last Done: 04/03/25 13:35 Discharge Date/Time: 04/03/25 14:21
--- NOTE | 2025-04-03 06:18 | ECG_ITS ---
Test Reason : ABDOMINAL PAIN Blood Pressure : */* mmHG Vent. Rate : 106 BPM Atrial Rate : 106 BPM P-R Int : 182 ms QRS Dur : 88 ms QT Int : 348 ms P-R-T Axes : 71 -33 41 degrees QTcB Int : 462 ms Sinus tachycardia Left axis deviation Possible Anterior infarct , age undetermined Abnormal ECG When compared with ECG of 23-Jan-2025 00:37, Premature atrial complexes are no longer Present Referred By: Joe Martinez Electronically Signed By: NIGEL REIS
--- OUTSIDE RECORDS SUMMARY | 2025-04-03 06:32 | XMS_ITS | Clinical Summary ---
Author Organization [facility], Address [address] [place] [address] Phone Care Team Providers [employer] Name Role Phone Teresa Scales Primary Care Provider [phone] Allergies No known active allergies Medications Cholecalciferol [...] mouth 1 (one) time each day Active clopidogrel (PLAVIX) 75 MG tablet Take [...] in the evening. Take with meals. Active senna (Senna-Time) 8.6 MG tablet Take 2 tablets by mouth in the morning. 4 Active rosuvastatin (CRESTOR) 10 MG tablet Take 10 mg by mouth 4 Active oseltamivir (TAMIFLU) 6 MG/ML suspension Take 30 mg by mouth 5 Active MIDODRINE HCL PO Take 10 mg by mouth 5 11/12/19 26 Active Melatonin 10 MG tablet Take 1 tablet by mouth 4 Active LOPERAMIDE HCL PO Take 2 mg by mouth 5 06/10/19 26 Active isosorbide dinitrate (ISORDIL) 30 MG tablet Take 1 tablet by mouth in the morning. 4 Active Insulin Lispro 100 UNIT/ML solution Inject 15 units in the am and 5 units in the pm 4 Active nitroglycerin (NITROSTAT) 0.[address] 0.4 mg under the tongue 5 06/24/19 26 Active Active Problems Problem Noted Date Diagnosed Date Obese class II 04/18/2024 End stage renal disease 03/26/2024 Essential hypertension 03/26/2024 Carotid artery stenosis 03/26/2024 Type 2 diabetes mellitus without complication Encounters Date Type Department Care Team Description 04/01/2025 Treatment [facility] [place] [address] [place] [address] Pauline Macdonald FNP-C End stage renal disease; Dependence on renal dialysis 03/27/2025 Orders Only [facility] [address] [address] Guillermo Guillory, DO 03/25/2025 Treatment [facility] [address] [place] [address] Khanh Ramirez MD End stage renal disease; Dependence on renal dialysis; Type 2 diabetes mellitus with diabetic nephropathy 03/20/2025 Orders Only [facility] [address] [address] Guillermo Guillory, DO 03/18/2025 Treatment [facility] [address] [place] [address] Pauline Macdonald, SLIP OPERATOR-C End stage renal disease; Dependence on renal dialysis 03/13/2025 Orders Only [facility] [address] [address] Guillermo Guillory, DO 03/06/2025 Orders Only [facility] [address] [address] Guillermo Guillory, DO 03/04/2025 Treatment [facility] [address] [place] [address] Pauline Macdonald, SLIP OPERATOR-C End stage renal disease; Dependence on renal dialysis 02/27/2025 Orders Only [facility] [address] [address] Guillermo Guillory, DO 02/25/2025 Treatment [facility] [address] [place] [address] Pauline Macdonald, SLIP OPERATOR-C End stage renal disease; Dependence on renal dialysis 02/20/2025 Orders Only [facility] [address] [address] Guillermo Guillory, DO 02/20/2025 Treatment [facility] [address] [place] [address] Khanh Ramirez MD End stage renal disease; Dependence on renal dialysis; Type 2 diabetes mellitus with diabetic nephropathy 02/13/2025 Orders Only [facility] [address] [address] Guillermo Guillory, 02/13/2025 Treatment [facility] [place], [address] [place] [id number] Khanh Ramirez MD End stage renal disease; Dependence on renal dialysis; Type 2 diabetes mellitus with diabetic nephropathy 02/11/2025 Treatment [facility] [place], [address] [place] [phone] Pauline Macdonald FNP-C End stage renal disease; Dependence on renal dialysis 02/10/2025 Telephone [facility] [place], [facility] Vascular Access Center [address] [place] [phone] Sonam Grimaldo 02/07/2025 10:00 AM EDT Procedure visit [facility] [place], [facility] [address] [place] [phone] Cesario Mena MD 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] (Primary Dx); End stage renal disease (HCC) [N18.6] 02/06/2025 Orders Only [facility] [address] [address] Guillermo Guillory, 02/05/2025 Telephone [facility] [place], [facility] Vascular Access Center [address] [place] [phone] Rosa M Cortes 02/04/2025 Treatment [facility] [place], [address] [place] [address] Pauline Macdonald FNP-C End stage renal disease; Dependence on renal dialysis 01/30/2025 Orders Only [facility] [address] [address] Guillermo Guillory DO 01/21/2025 Treatment [facility] [place] [address] [place] [address] Khanh Ramirez MD End stage renal disease; Dependence on renal dialysis; Type 2 diabetes mellitus with diabetic nephropathy 01/16/2025 Orders Only [facility] [address] [address] Guillermo Guillory DO 01/14/2025 Treatment [facility] [place], [address] [place] [address] Pauline Macdonald FNP-C End stage renal disease; Dependence on renal dialysis 01/09/2025 Orders Only [facility] [address] [address] Guillermo Guillory DO 01/07/2025 Orders Only [facility] [address] [address] Guillermo Guillory DO 01/04/2025 Treatment [facility] [facility] [address] [place] [address] Pauline Macdonald FNP-C End stage renal disease; Dependence on renal dialysis 01/02/2025 Treatment [facility] [address] [place] [address] Khanh Ramirez MD End stage renal disease; Dependence on renal dialysis; Type 2 diabetes mellitus with diabetic nephropathy 01/02/2025 Orders Only [facility] [address] [address] Guillermo Guillory DO from Last 3 Months [...] Sign Reading Time Taken Comments Blood Pressure 112/69 02/07/2025 9:08 AM EDT Pulse 98 02/07/2025 9:08 AM EDT Temperature 36.3 C (97.3 F) 02/07/2025 9:08 AM EDT Respiratory Rate 16 02/07/2025 9:08 AM EDT Oxygen Saturation 93% 02/07/2025 9:08 AM EDT Inhaled Oxygen Concentration - - Weight 97.1 kg (214 lb) 02/07/2025 9:08 AM EDT Height 162.6 cm (5' 4 ) 02/07/2025 9:08 AM EDT Body Mass Index 36.73 02/07/2025 9:08 AM EDT Plan of Treatment Upcoming Encounters Date Type Department Care Team (Late st Contact Info) Description 05/30/2025 11:00 AM EST Procedure visit [facility] - Vascular Access Center [address] [place] [address] [place] [address] Health Maintenance Due Date Last Done Comments Pneumococcal Vaccine: 50+ Ye ars (1 of 2 - PCV) 1964 Hepatitis B Vaccine (1 of 5 - Risk Dialysis 4-dose series) 1965 Diabetes: Ophthalmology Exam 03/26/2024 Diabetes: Pedal Pulse Checked 03/26/2024 Diabetes: Sensory Foot Exam 03/26/2024 Diabetes: Visual Foot Exam 03/26/2024 Influenza Vaccine (#1) 2025 Diabetes: Hemoglobin A1C 05/30/2025 025, 11/30/2024, 08/29/2024, Additional history exists Procedures Procedure Name Priority Date/Time Associated Diagnosis Comments HEMATOLOGY Routine 03/27/2025 [facility] LAB RESULTS Routine 03/20/2025 HD KINETICS Routine 03/20/2025 POST CHEMISTRY Routine 03/20/2025 CHEMISTRY Routine 03/20/2025 HEMATOLOGY Routine 03/20/2025 HEMATOLOGY Routine 03/13/2025 HEMATOLOGY Routine 03/06/2025 IMMUNO CHEMISTRY Routine 02/27/2025 CHEMISTRY Routine 02/27/2025 SPECIAL CHEMISTRY Routine 02/27/2025 CHEMISTRY Routine 02/27/2025 HEMATOLOGY Routine 02/27/2025 HEMATOLOGY Routine 02/20/2025 SPECTRA SARAH LAB RESULTS Routine 02/13/2025 HD KINETICS Routine 02/13/2025 POST CHEMISTRY Routine 02/13/2025 CHEMISTRY Routine 02/13/2025 HEMATOLOGY Routine 02/13/2025 HEMATOLOGY Routine 02/06/2025 IMMUNO CHEMISTRY Routine 01/30/2025 CHEMISTRY Routine 01/30/2025 CHEMISTRY Routine 01/30/2025 HEMATOLOGY Routine 01/30/2025 SPECTRA SARAH LAB RESULTS Routine 01/16/2025 HD KINETICS Routine 01/16/2025 CHEMISTRY Routine 01/16/2025 POST CHEMISTRY Routine 01/16/2025 HEMATOLOGY Routine 01/16/2025 HEMATOLOGY Routine 01/09/2025 CHEMISTRY Routine 01/07/2025 IMMUNO CHEMISTRY Routine 01/02/2025 CHEMISTRY Routine 01/02/2025 HEMATOLOGY Routine 01/02/2025 CHEMISTRY Routine 01/02/2025 from Last 3 Months Results * HEMATOLOGY (03/27/2025) Only the most recent of12 resultswithin the time period is included. Hemoglobin 12.0 12.0 - 16.0 g/dL [facility] Hemoglobin x 3 36 36.0 - 48.0 % [facility] 03/27/2025 03/28/2025 7:4 8 AM EST Narrative SPECTRAE - 03/28/2025 Unless otherwise specified, test(s) performed at: [facility], [address] [place] [address] DIRECTOR OF CAPITAL GIVING: Dale Menard M.D. For any questions, please call customer service at FREQUENCY:OTHER Resulting Agency Comment Specimen source: Blood Guillermo Guillory DO LAB BLOOD ORDERABLES Final Resu lt [facility] See order comments or contact performing lab Unknown, [place] * HD KINETICS (03/20/2025) Only the most recent of3 resultswithin the time period is included. % Urea Reduction 77 65 - 80 % [facility] 03/20/2025 03/22/2025 1:2 7 PM EST Narrative Resulting Agency Comment Specimen source: Plasma Guillermo Guillory DO LAB BLOOD ORDERABLES Final Resu lt [facility] See order comments or contact performing lab Unknown, [place] * POST CHEMISTRY (03/20/2025) Only the most recent of3 resultswithin the time period is included. BUN Post Dialysis 11 6 - 19 mg/dL [facility] 03/20/2025 03/22/2025 1:2 7 PM EST Narrative [facility]E - 03/22/2025 Unless otherwise specified, test(s) performed at: [facility], [address] [place] [address] DIRECTOR OF CAPITAL GIVING: Dale Menard M.D. For any questions, please call customer service at FREQUENCY:OTHER Resulting Agency Comment Specimen source: Plasma [facility] LAB BLOOD ORDERABLES Final Resu lt Performing Organization Address [facility]/ZIP Co de Phone Number [facility] See order comments or contact performing lab Unknown, [place] * (ABNORMAL) [facility] Chemistry (03/20/2025) Only the most recent of10 resultswithin the time period is included. Pathologist [facility] BUN 47(H) 6 - 19 mg/dL [facility] 03/20/2025 03/21/2025 9:4 3 AM EST Narrative SPECTRAE - 03/21/2025 Unless otherwise specified, test(s) performed at: [facility], [address] [place] [id number] DIRECTOR OF CAPITAL GIVING: Dale Menard M.D. For any questions, please call customer service at FREQUENCY:OTHER Resulting Agency Comment Specimen source: Serum [facility] LAB BLOOD ORDERABLES Final Resu lt Performing Organization Address City/[facility]/ZIP Co de Phone Number [facility] See order comments or contact performing lab Unknown, [place] * Spectra SARAH Lab Results (03/20/2025) Only the most recent of3 resultswithin the time period is included. Pathologist [facility] WSTDKT/V 2.5 [facility] eKt/V Gotch [facility] eKdrt/V 1.51 [facility] PCR 57.32 [facility] spKt/V (Yanick II) 1.70 [facility] nPCR_HD 0.91 [facility] spKt/V Gotch 1.75 [facility] eKt/V ([place]) 1.47 [facility] eNPCR 0.86 [facility] 03/20/2025 03/20/2025 [facility] Ordering Provider LAB BLOOD ORDERABLES Final Result [facility] Contact Performing lab Unknown, [place] * (ABNORMAL) SPECIAL CHEMISTRY (02/27/2025) Hemoglobin A1C 7.3(H) 4.8 - 5.9 % [facility] 02/27/2025 03/01/2025 10: 44 AM EDT Narrative [facility]E - 03/01/2025 Unless otherwise specified, test(s) performed at: [facility], [address] [place] [address] DIRECTOR OF CAPITAL GIVING: Dale Menard M.D. For any questions, please call customer service at FREQUENCY:MONTHLY Resulting Agency Comment Specimen source: Blood Guillermo Guillory LAB BLOOD BANK TEST ORDERABLES Final Result Performing Organization Address City/[facility] Co de Phone Number [facility] See order comments or contact performing lab Unknown, [place] * IMMUNO CHEMISTRY (02/27/2025) Only the most recent of3 resultswithin the time period is included. Hep B Surface Ag Negative Negative [facility] 02/27/2025 03/01/2025 11: 30 AM EDT Narrative Resulting Agency Comment Specimen source: Serum Guillermo Guillory DO LAB BLOOD ORDERABLES Final Resu lt Performing Organization Address City/[facility]/ZIP Co de Phone Number [facility] See order comments or contact performing lab Unknown, [place] from Last 3 Months Insurance [employer] MCR Adv PPO ([phone]) Care Teams [employer] Relationship Specialty Start Date End Date [place] Kin[place] [address] [place] [phone] PCP - General 03/27/24
--- OUTSIDE RECORDS SUMMARY | 2025-04-03 06:32 | XMS_ITS | Data Portability ---
Author Organization [place] - [facility] Address [address] [place] [id number] Care Team Providers Care Food And Drug Research Scientist Name Role Phone DIANELYS RIVAS Primary Care Provider SILKE JONES Integrated Program Teacher Assessment Encounter Date Assessment Date Assessment LastModified by Organization Details LastModified Time 09/25/2023 09/25/2023 Ms. Alessandra Escobar is a 78yr old with following chronic conditions ESRD , HTN , DM, Breast cancer s/p left partial mastectomy (06/03), hyperlipidemia Patient was seen today for annual wellness visit I spent 60 minutes gagj-hy-sfdl with the patient. Over half of the time was spent in discussion of the diagnosis, the treatment plan including risks, benefits and alternatives, and the importance of adherence. Consents already on file in [facility]. Patient educated on program and services. Follow up as below, patient educated that if a need arises they can contact [employer] 05/12. Direct provider number provided to patient. Next Primary Care appointment is on 12/22/2023 Next Nephrology appointment is on 10/14/2023 After visit summary will be faxed to active providers listed, and uploaded to TUBE by Patient Painter Helper (PSS) and for review and communication to [employer] Assigned Care Managers and Social Workers. Patient to follow up on regular gonsalo with [facility] Marriage Performer and Pipe Washer. Not available 09/27/2023 12:37:33 Plan of Treatment Reminders Order Date Submit Date Provider Last Modified By Organization Details Last Modified Time Details Appointments None record ed. Lab None record ed. Referral None record ed. Procedures None record ed. Surgeries None record ed. Imaging None record ed. Medication Orders None record ed. Patient TargetsNo targets recorded. Patient Instructions Encounter Date Encounter Id Patient Instructions Last Modified By Organization Details Last Modified Time 09/25/2023 [id number] You were seen today for a [facility] Comprehensive Inventory Assessment as recommended by your health plan. You are recommended to: 1. Have routine physical activity of at least 30 minutes 5 times per week. 2. Eat a healthy diet low in sodium and saturated fats 3. Smoking cessation, if you are a smoker. This includes e-cigarettes and vaping as well. 4. Obtain your annual Influenza vaccination as well as Pneumonia vaccination if you have not had one since age 65. 5. Obtain an annual diabetic foot and eye exam, if you have Diabetes. 6. Take your daily medications as prescribed 7. Follow up with your Primary Care Provider for your preventative cancer screenings, including colorectal cancer screening, mammogram for women, prostate exam for men, and Lung CT for smokers. 8. It is important to know that for those patients over the age of 60 with certain chronic conditions, that you are at risk for adverse outcomes from COVID-19. 9. It is important to know that for patients with CKD and one or more of the following chronic conditions, then you are most at risk for adverse outcomes: Hypertension, Diabetes, Hypercholesterolem ia, Obesity, Tobacco use, Proteinuria, Hyperkalemia, Anemia due to renal disease, Volume overload, Hyperphosphatemia, and Secondary hyperparathyroidis m. 10. Follow up with your Primary Care Provider as scheduled for continued management of your chronic health conditions. Not available 09/25/2023 13:25:52 Reason for Referral None Reported. Problems Name Problem SNOMED Code Status Onset Date Resolution Date Notes Provider Name and Address Organization Details Recorded Time Chronic kidney disease due to type 2 diabetes mellitus 399521521081 Active 2023 Zandra Manzano NP [address], [place], [address], [facility] 19:27:26 Hypertensiv e heart AND renal disease 00601311 Active 2023 Zandra Manzano NP [address], [place], [address], [facility] 4 19:30:30 Neuropathy 794612317 Active 2023 Zandra Manzano NP [address], [place], [address], [facility] 4 19:31:42 Hyperlipide jason 81747418 Active 2023 Zandra ChiOSCAR [address], [place], [address], [facility] 4 19:32:38 Hyperparath yroidism 31879845 Active 2023 [address], [place], [address], [facility] 4 10:34:14 Long-term current use of antiplatele t drug 7826847833290 01 Active 2023 Longliz AlonOSCAR [address], [place], [address], [facility] 4 12:10:52 Malignant neoplasm of breast 571766823 Active 2023 [address], [place], [address], [facility] 4 12:14:17 Chronic kidney disease stage 5 560249944 Active 2023 GFR 14(06/15 09/05) Longliz AlonOSCAR [address], [place], [address], [facility] 4 12:49:49 Problem Notes None recorded. Procedures Surgical History Date Name Laterality Status Provider Name and Address Organization Details Recorded Time 0 excisional biopsy of breast completed [address], [place], [address], [facility] 09/26/2023 19:38:24 9 excisional biopsy of breast completed Tanvirzeke AlonOSCAR [address], [place], [address], [facility] 09/26/2023 19:38:15 lumpectomy of right breast completed TanvirOSCAR [address], [place], [address], [employer] [facility] 09/26/2023 19:39:13 Imaging Results None recorded. Procedure Notes None recorded. Medical Equipment None Reported. Allergies No known drug allergies Medications Name Sig Start Date Stop Date Status Note LastModified by Organization Details LastModified Time furosemide 40 mg tablet Take 1 tablet every day by oral route for 90 days. active Not Available Not Available No t Available anastrozole 1 mg tablet Take 1 tablet every day by oral route in the morning for 90 days. active Not Available Not Available No t Available diltiazem CD 180 mg capsule,ext ended release 24 hr Take 1 capsule every day by oral route for 90 days. active Not Available Not Available No t Available diltiazem CD 240 mg capsule,ext ended release 24 hr 09/24 completed Not Available Not Available Not Available isosorbide mononitrate ER 30 mg tablet,exte nded release 24 hr Take 1 tablet every day by oral route for 90 days. active Not Available Not Available No t Available clopidogrel 75 mg tablet Take 1 tablet every day by oral route for 90 days. active Not Available Not Available No t Available metoprolol tartrate 50 mg tablet Take 1 tablet twice a day by oral route for 90 days. active Not Available Not Available No t Available gabapentin 100 mg capsule Take 1 capsule every day by oral route in the evening for 90 days. active Not Available Not Available No t Available cholecalcif derek (vitamin D3) 125 mcg (5,000 unit) capsule Take 1 capsule every day by oral route. active Not Available Not Available No t Available irbesartan 300 mg tablet Take 1 tablet every day by oral route in the morning for 90 days. active Not Available Not Available No t Available moxifloxaci n 0.5 % eye drops 09/24 completed Not Available Not Available Not Available rosuvastati n 10 mg tablet Take 1 tablet every day by oral route for 90 days. active Not Available Not Available No t Available Humalog Mix 75-25 KwikPen U-100 insulin 100 unit/mL subcutaneou s pen INJECT 18 units in the am and 8 units at night active Not Available Not Available No t Available FreeStyle Ana Lilia 2 Sensor kit active Not Available Not Available N ot Available FreeStyle Ana Lilia 2 [place] active Not Available Not Available Not Available Trulicity 4.5 mg/0.5 mL subcutaneou s pen injector Inject 0.5 mL every week by subcutane ous route. active Not Available Not Available No t Available Vitals Date Recorded Body height Body mass index (BMI) Body weight Heart rate Systolic And Diastolic Systolic And Diastolic Provider Name and Address Organization Details Last Updated DateTime 162.56 cm 36.9 kg/m2 08674.3 6 g 76 /min 156/79 mm[Hg] 142/68 mm[Hg] Zandra Manzano, OSC[address], [place], [address], [place] - [facility] 4 14:04:55 Social History Question Answer Notes LastModified by Organizat ion Details LastModified Time In A Normal Week, How Many Times Do You Engage In Weynyjhd-xg-mcxw nuous Physical Activity For At Least 30 Minutes At A Time? Moderate Physical Activity Is Any Activity That Causes Speaking To Take A Little More Effort Than Usual, But Doesn t Leave You Gasping For Air, And Would Still Allow You To Carry On A Conversation. None Information not available 09/25/2023 What Is Your Current Smoking Status? Former Smoker Information not available 09/25/2023 In A Normal Week How Many Days Do You Consume Alcohol? None Information not available 09/26/2023 Describe Your Level Of Cognitive Function; Considering Your Ability To Communicate And Understand Instructions And Ability To Process Information About Your Current Health Conditions? Alert/oriented And Able To Focus And Shift Attention/compreh ends And Recalls Direction Independently. Information not available 09/25/2023 Do You Require Assistance Walking? Patient Is Able To Independently Use A One-handed Device To Walk On Even And Uneven Surfaces. Information not available 09/25/2023 Do You Require Assistance Transferring? No - Patient Is Fully Independent And Requires No Assistance Transferring. Information not available 09/25/2023 Do You Require Assistance With Feeding? No - Patient Is Fully Independent And Requires No Assistance With Feeding. Information not available 09/25/2023 Do You Require Assistance With Bathing? No - Patient Is Fully Independent And Requires No Assistance With Bathing. Information not available 09/25/2023 Do You Require Assistance Grooming? No - Patient Is Fully Independent And Requires No Assistance Grooming. Information not available 09/25/2023 Do You Require Assistance Getting Dressed? No - Patient Is Fully Independent And Requires No Assistance Getting Dressed. Information not available 09/25/2023 Do You Require Assistance Toileting? No - Patient Is Fully Independent And Requires No Assistance Toileting. Information not available 09/25/2023 Are You Incontinent Of The Following? Bladder Information not available 09/25/2023 Sex: Unknown Functional Status Question Answer Note LastModified by Organizat ion Details LastModified Time Do you use any illicit or recreational drugs? No Information not available 09/26/2023 Do you or have you ever used any other forms of tobacco or nicotine? No Information not available 09/25/2023 Are you currently employed? No Information not available 09/26/2023 Mental Status Question Answer Note LastModified by Organization D etails LastModified Time Do you have difficulty concentrating, remembering or making decisions? Yes Information no t available 09/25/2023 Family History Relationship Description Onset Age of this Age Resolved Age Notes LastModified by Organization Details LastModified Time Mother Hypertensive disorder Not available 2023 12:50:49 Mother Diabetes mellitus Not available 2023 12:51:22 Brother Hypertensive disorder Not available 2023 12:50:49 Sister Hypertensive disorder Not available 2023 12:50:49 Sister Diabetes mellitus Not available 2023 12:51:21 Medical History No medical history recorded. Gynecological HistoryNo gynecological history recorded. Obstetrics History GPAL:G 0 P 0 0 0 0 Immunizations Vaccine Type Date Status Note Provider Nam e and Address Organization Details Recorded Time SARS-COV-2 (COVID-19) vaccine, UNSPECIFIED 04/25/2022 completed Zandra Manzano, [address], [place], [address], [facility] 09/26/2023 12:49:11 SARS-COV-2 (COVID-19) vaccine, UNSPECIFIED 11/05/2021 completed Zandra Manzano, [address], [place], [address], [facility] 09/26/2023 12:49:45 SARS-COV-2 (COVID-19) vaccine, UNSPECIFIED 05/09/2021 completed Zandra Manzano, [address], [place], [address], [facility] 09/26/2023 12:49:59 SARS-COV-2 (COVID-19) vaccine, UNSPECIFIED 08/18/2020 completed Zandra Manzano NP [address], [place], [address], [facility] 09/26/2023 12:50:10 Past Encounters Encounter ID Performer Location Encounter Start Date Encounter Closed Date Diagnosis/Indication Diagnosis SNOMED-CT Code Diagnosis ICD10 Code Diagnosis IMO Codes Diagnosis Note [id number] Zandra Manzano NP [facility] [address] [facility] [place] [address] 09/25/2023 13:23:23 12/05/2023 11:01:32 Hypertensive heart AND renal disease 65352232 I13.10 - Stable- BP during visit:156/ 79 rechecked 142/68- Patient does not check BP daily- Currently taking:irb esartan, metoprolol - Recommenda tions: DASH Diet, Limit sodium 2g daily, Weight Reduction if applicable , 30min/5 days a week physical activity, limit alcohol consumptio n.-Call the clinic if persists > 130/80 or is < 100/70- BP Goal <130/80- Following PCP Chronic ki dney disease due to type 2 diabetes mellitus 4784300688 08 E11.22 Z79.4 -Stable- A1c: 5.8( 4) Goal A1c: 7%-current ly taking : Humalog mix 75-25 , trulicity- Patient does check BG regularlyD iscussed the importance of quarterly A1C lab work, yearly Diabetic Eye Exams and Yearly Diabetic Foot Exams- Patient was counseled about lifestyle changes and medication compliance :DIET: Avoid sugary drinks, processed food, limit carbohydra te intake, eat complex meals, portion control.EX ERCISES: Advised if able, 150 min/week of moderate exercise, performed during 3 to 5 sessions per week.WEIGH T LOSS: calorie restrictio n, diet, and exercises. -Following with Endocrinol ogist next 11/15/23 Hyperlipidemia 45049776 E78.5 -on going- Currently taking: rosuvastat in- Labs on: Chol -144, Tri- 146, HDL -41, LDL 77 (08/08/23)- Goal LDL <70- Patient educated on Mediterran joel diet and DASH diet options- Following with PCP Malignant neoplasm of breast 902244783 C50.919 -Stable, ongoingHx of LT/RT breast cancerS/P left partial mastectomy -Taking : Anastrozol e-Managed by hematology /oncology- Labs per oncology, monitoring labs--Disc ussed the importance to avoid crowded places, keep up with yearly vaccinatio ns as recommende d by the care team. Eat more fruits and vegetables as able to tolerate.- Follow oncologist recommenda tions next [facility] 10/04/23 , Hematology onc 10/18/23 Neuropathy 530476894 G62 .9 - Chronic- Current Medication s: gabapentin - Recommenda tions: Medication compliance , keep blood pressure and blood glucose within normal ranges, maintain a healthy weight, daily low impact exercise.- Educated patient on the effects of gabapentin on the kidneys and possible gabapentin accumulati on and toxicity that might lead to [employer]OL[employer]I alteration with prolonged usage. - Following with Endocrinol ogist next 11/15/23 Hyperparathyroidism 6699 9008 N25.81 - on going- Secondary hyperparat hyroidism d/t CKD- Labs on: 79(06/28/23 ) 94( 3)- Currently taking: not aon medication - Following PCP / Nephrology Coronary arteriosclerosis 24443771 I25.119 -Stable-Ta kes Statin, isosorbide mononitrat e- No HX of stents/WA/ CABG- Follows with cardiology - Denies Chest pain or discomfort (angina), Weakness, light-head edness,sully sea (feeling sick to your stomach), or a cold sweat. Pain or discomfort in the arms or shoulder or Shortness of breath.- Stable, following medication regiment. Long-term current use of antiplatelet drug [id number] 02295 Z79.02 Chronic, Stable-Cur rent Medication s: clopidogre l- No signs and symptoms of bleeding- Recommenda tions: Compliance with Medication s, Lifestyle changes to control risk factors,re gular exercise, proper nutrition. Treatment of existing conditions such as diabetes, high blood pressure, and high cholestero l which could worsen PVD.- Follows with Cardiologi st/PCP Chronic ki dney disease stage 5 235369537 N18.5 Stable- CKD with HTN , DM-GFR 14 (06/28/23)- Currently taking: irbesartan , metoprolol - Denies symptoms of CKD including fatigue, N/V, loss of appetite, SOB, swelling, pruritis, urinary changes- Discussed causes of renal disease and goal of preventing further kidney damage- Discussed methods to prevent further damage including: adhering to medication regimen, avoiding high salt/canne d foods, avoiding NSAIDs, avoiding contrast dye unless emergent, avoiding dark sodas-Amish mmend low salt diet (<2g/day) & Tylenol PRN for pain-Encou raged monitoring and logging BP daily with a goal of < 140/90.- Following nephrology Health Concerns Section Related Observation LastModified by Organization Detai ls LastModified Time None Recorded Concern Status LastModified by Organization Details LastModified Time None Recorded Advance Directives Directive None Recorded Payers Insurance Date Sequence Insurance Name Policy Number Policy Goldman Covered Member ID Goldman Member ID Guarantor Name 04/17/2024 1 [place] [place] - [place] - [place] - [place] - [place] - [place] (MEDICARE RE[place]AC[place]/AD VANTAGE - HMO) Alessandra OrdonezMargieCo lbert [id number] Alessandra RamosColbe rt 04/17/2024 1 [employer] Communications[employer]ELISSA - [place] - [place] - [place] - [place] - [facility] - [place] - [place] - [facility] (MEDICARE REPLACEMENT/AD VANTAGE - HMO) Alessandra OrdonezKristopher lbert [id number] Alessandra Ordonez-Colbe rt 04/17/2024 1 [employer] Communications[employer]ELISSA - [place] - [place] - [place] - [place] [facility] [place] - [place] - [facility] (MEDICARE REPLACEMENT/AD VANTAGE - HMO) Alessandra OrdonezKristopher lbert [id number] Alessandra Ordonez-Colbe rt 04/17/2024 1 [facility] [place] - [place] - [place] - [place] - [place] - [place] - [place] - [place] - [place] (MEDICARE RE[place]AC[place]/AD VANTAGE - HMO) Alessandra Felipe lbert [id number] Alessandra OrdonezFco rt Notes Date Note Type Note Provider Name and Address Organization Details Recorded Time 09/25/19 24 text/htm l Comprehensive Inventory Assessment ([facility])Reported by PatientMental StatusFor speech/motor difficulties, patient reportsdifficulty with fine manipulative tasksbut reportsno speech difficulties,no difficulty expressing formulated concepts, andno difficulty writing/copying.Functional AbilityFor instrumental activities of daily living, patient reportsunable to grocery shop without assistance,unable to prepare meals without assistance, andunable to do housekeeping independentlybut reportsable to manage money with limited or no assistance,able to use the phone with limited or no assistance, andable to do laundry independently. For fall risk assessment, patient reportsfall(s) in the past year 1but reportsno history of fractures,no fall since last visit, andno dizziness/vertigo. For diet and nutrition, patient reportshealthy dietanddiscussed diet improvement. For home safety, patient reportsno unsafe manjeet hazzards,no unsafe stairs,working smoke/co detectors,use of seatbelts,has hand bars in the bathroom/shower,good lighting in the home, andgood oral hygiene. For hospitalizations, patient reportsno hospitalization in the last year. For hospitalization risk, patient reportsnot at risk for hospitalization.Pain AssessmentFor pain intensity and frequency, patient reports(if no pain = 0, has pain = 1-10) 0. For opioid evaluation - has patient required/used more than a 15 day supply of narcotic medication?, patient reportsno.Blood and Urine ScreeningsFor proteinuria screening urine (select one within 12 months), patient reportsurine albumin creatinine ratio uacr - date: 06/28/23andresult: 1633 (mg/g). For egfr (within 12 months), patient reportsdate: 06/28/23andresult: 14 (ml/min/1.73). For a1c (within 12 months), patient reportsdate: 08/08/23andresult: 5.8 (mg/dl).Preventative Screenings- (Results Must Include MM/DD/YYYY)For bladder control screening, patient reportsif yes, how much of a problem was it? (5 being severe) 2but reportsduring the last 3 months - have you leaked urine (even a small amount)? yesanddiscussed urinary incontinence, including bladder training exercises, medication and surgery yes. For colorectal cancer (all patients, 45-75), patient reportscolonoscopy (every 10 years) result date: 2016. For breast cancer (females, 52-74), patient reportsmammogram (due every 2 years) result date: 02/2023. For osteoporosis screening (females, 67-85), patient reportsdexa result date: 2022.Chronic Condition Management- (Results Must Include MM/DD/YYYY)For coronary artery disease (cad), patient reportsanginabut reportscad - yesandif yes for cad; statin use: yes. For diabetes mellitus (dm), patient reportsneuropathyandcataractsbut reportsdm - yes,if yes for dm; statin use: yes, andeye exam - result date: ___. For cancer, patient reportshormone therapybut reportscancer - yesandif cancer; type: breast. For chronic obstructive pulmonary disease (copd), patient reportscopd - no. For congestive heart failure (chf), patient reportschf - no. For cardiac devices, patient reportscardiac device - no. For history of cerebrovascular accident (cva), patient reportscva - no. For depression, patient reportsphq-9 completeanddepression - no. For skin ulcers, patient reportsskin ulcers - no. For substance abuse disorders (shanel), patient reportssud - no. For rheumatoid arthritis (ra), patient reportsra: no.Medication review for Optimal CKD Management:For 3. sglt2 inhibitors, patient reportsnot taking. For 1. dom inhibitors/arbs, patient reportstaking,taking due to hypertension, andtaking due to proteinuria. For 2. statin, patient reportstaking,(normal) allergy: as indicated by health information system, and(normal) allergy: biological substances. For 4. nsaids, patient reportsnot taking. Patient seen today for in home assessment. [employer] Marriage Performer is not present in home during visit.The HPI consists of patient reported history and the provider's clinical interpretation. Zandra Manzano NP [address], [place], [address], [facility] - [facility] 09/27/2023 12:52:06 OBGyn Episode No OBEpisode recorded.
--- OUTSIDE RECORDS SUMMARY | 2025-04-03 06:32 | XMS_ITS | Data Portability ---
Author Organization [facility] DIRECT[facility] SALES [employer] MARKETING, [place] [facility] Address [address] [place] [place] [address] Assessment No assessment recorded. Plan of Treatment Reminders Order Date Submit Date Provider Last Modified By Organization Details Last Modified Time Details Appointments None recorded. Lab None recorded. Referral None recorded. Procedures None recorded. Surgeries hysteroscop y, surgical, with biopsy of endometrium and/or polypectomy (SURG) 2018 019 SEDA Not available 9 15:21:18 Imaging None recorded. Medication Orders None recorded. Patient TargetsNo targets recorded. Patient Instructions Encounter Date Encounter Id Patient Instructions Last Modified By Organization Details Last Modified Time 08/27/2018 [id number] Patient's clinical situation requires complete diagnosis with D&C. PLacement of progestin IUD recommended as well. Patient to get medical clearance from Dr. Santiago. Face to face time: 15 min/>50% counseling and coordination of care [email or web address] Not available 08/27/2018 19:12:21 09/18/2018 [id number] History and PE completed, consents signed and pre-op instructions given. Not available 09/18/2018 13:38:53 10/24/2018 [id number] Pateint doing well. IUD string in place. Follow up in one year Not available 10/24/2018 14:26:03 08/26/2019 [id number] Follow up as needed or in one year. [email or web address] Not available 08/26/2019 15:07:48 09/11/2020 [id number] Follow up yearly , sooner as needed for bleeding Not available 09/11/2020 15:42:54 Reason for Referral None Reported. Results Created Date Observation Date Name Description Value Unit Range Abnormal Flag Note LastModifiedBy Organization Detail LastModifiedTime 08/15/19 19 08/16/2018 patho logy study . Commlaron t Mater ial submi tted: . ENDOM ETRIU M, BIOPS Y Not Available [facility] ([facility]) [address], [place], [address], 08/16/2018 15:36:58 08/15/19 19 08/16/2018 patho logy study . Commlaron t Clini oleg provi ded ICD-1 0: N95.0 Not Available [facility] ([facility]) [address], [place], [address], 08/16/2018 15:36:58 08/15/19 19 08/16/2018 patho logy study . Commlaron t Diagn osis: ENDOM ETRIU M, BIOPS Y: DISOR DERED PROLI FERAT DEJA PHASE ENDOM ETRIU M. BENIG N ENDOM ETRIA L POLYP . BUL/0 2018 Not Available [facility] ([facility]) [address], [place], [address], 08/16/2018 15:36:58 08/15/1908/16/2018 patho logy study . Commlaron t Lyle dudley d: . Lety pickering MD, Patho logis t Not Available [facility] ([facility]) [address], [place], [address], 08/16/2018 15:36:58 08/15/1908/16/2018 patho logy study . Commen t Gross descr iptio n: . 1 Conta iner, forma trenton-f illed , label ed with patie nt ident ifica tion. ENDOM ETRIU M, BIOPS Y: Recei pascual in forma trenton is 1 X 3 X .2 cm in aggre [facility] ial. Tissu e is submi tted in toto in 1 casse tte(s ). /SBB /SBB Not Available [facility] ([facility]) [address], [place], [address], 08/16/2018 15:36:58 08/15/1908/16/2018 patho logy study . Commen t Patho logis t provi ded ICD-1 0: N85.9 , N84.0 Not Available [facility] ([facility]) [address] [place], [address], 08/16/2018 15:36:58 08/15/1908/16/2018 patho logy study . Commen t CPT . 48525 1 Not Available [facility] ([facility]) [address] [place], [address], 08/16/2018 15:36:58 08/15/1908/17/2018 pap, IG + refle x HPV if ASC-U diagnosis: Commen t NEGAT DEJA FOR INTRA EPITH ELIAL LESIO N OR MALGABI BENDER . THIS SPECI MEN WAS RESCR EENED PART OF OUR QUALI TY CONTR OL PROGR AM. Not Available [facility] ([facility]) [address] [place], [address], 08/18/2018 06:14:37 08/15/1908/17/2018 pap, IG + refle x HPV if ASC-U specimen adequacy: Commen t Satis facto ry for evalu ation . Endoc ervic al and/o r squam ous metap lasti c cells (endo cervi freeman compo nent) are prese nt. Not Available [facility] ([facility]) [address] [place], [address], 08/18/2018 06:14:37 08/15/19 19 08/17/2018 pap, IG + refle x HPV if ASC-U clinician provided ICD10: Franklin kitchen N95.0 Z01.4 19 Not Available [facility] ([facility]) [address] [place], [address], 08/18/2018 06:14:37 08/15/1908/17/2018 pap, IG + refle x HPV if ASC-U performed by: Franklin crawford, Cytot echno logis t (ASCP ) Not Available [facility] ([facility]) [address] [place], [address], 08/18/2018 06:14:37 08/15/1908/17/2018 pap, IG + refle x HPV if ASC-U QC reviewed by: Franklin mo, Thea alinezor y Cytot echno logis t (ASCP ) Not Available [facility] ([facility]) [address] [place], [address], 08/18/2018 06:14:37 08/15/1908/17/2018 pap, IG + refle x HPV if ASC-U . . Not Available [facility] ([facility]) [address] [place], [address], 08/18/2018 06:14:37 08/15/1908/17/2018 pap, IG + refle x HPV if ASC-U note: Franklin kitchen The Pap smear is a scree wallace test desig justen to aid in the detec tion of tara ligna nt and malig nant condi tions of the uteri ne cervi x. It is not a diagn ostic proce dure and shoul d not be used as the sole means of detec ting cervi freeman cance r. Both false -posi tive and false -nega tive repor ts do occur . Not Available [facility] ([facility]) [address], [place], [address], 08/18/2018 06:14:37 08/15/19 19 08/17/2018 pap, IG + refle x HPV if ASC-U test methodology: Commen t This liqui d based ThinP rep(R ) pap test was scree justen with the use of an image guide susan reich m. Not Available [facility] ([facility]) [address] [place], [address], 08/18/2018 06:14:37 08/15/19 19 08/17/2018 pap, IG + refle x HPV if ASC-U . Commen t The HPV DNA refle x crite chriss were not met with this speci men resul t there fore, no HPV testi ng was perfo rmed. Not Available [facility] ([facility]) [address] [place], [address], 08/18/2018 06:14:37 09/19/19 19 09/19/2018 CBC w/ auto diff WBC 5.5 x10e3 /uL 3.4-10 .8 Not Available [facility] ([facility]) [address] [place], [address], 09/19/2018 06:31:54 09/19/1909/19/2018 CBC w/ auto diff RBC 4.09 x10e6 /uL 3.77-5 .28 Not Available [facility] ([facility]) [address] [place], [address], 09/19/2018 06:31:54 09/19/19 19 09/19/2018 CBC w/ auto diff hemoglobin 12.4 g/dL 11.1-1 5.9 Not Available [facility] ([facility]) [address], [place], [address], 09/19/2018 06:31:54 09/19/1909/19/2018 CBC w/ auto diff hematocrit 38.7 % 34.0-4 6.6 Not Available [facility] ([facility]) [address], [place], [address], 09/19/2018 06:31:54 09/19/19 19 09/19/2018 CBC w/ auto diff MCV 95 fL 79-97 Not Available [facility] ([facility]) [address], [place], [address], 09/19/2018 06:31:54 09/19/1909/19/2018 CBC w/ auto diff MCH 30.3 pg 26.6-3 3.0 Not Available [facility] ([facility]) [address], [place], [address], 09/19/2018 06:31:54 09/19/1909/19/2018 CBC w/ auto diff MCHC 32.0 g/dL 31.5-3 5.7 Not Available [facility] ([facility]) [address], [place], [address], 09/19/2018 06:31:54 09/19/1909/19/2018 CBC w/ auto diff RDW 13.3 % 12.3-1 5.4 Not Available [facility] ([facility]) [address], [place], [address], 09/19/2018 06:31:54 09/19/1909/19/2018 CBC w/ auto diff platelets 182 x10e3 /uL 150-37 9 Not Available [facility] ([facility]) [address] [place], [address], 09/19/2018 06:31:54 09/19/19 19 09/19/2018 CBC w/ auto diff neutrophils 49 % not estab. Not Available [facility] ([facility]) [address], [place], [address], 09/19/2018 06:31:54 09/19/1909/19/2018 CBC w/ auto diff lymphs 32 % not estab. Not Available [facility] ([facility]) [address], [place], [address], 09/19/2018 06:31:54 09/19/19 19 09/19/2018 CBC w/ auto diff monocytes 14 % not estab. Not Available [facility] ([facility]) [address] [place], [address], 09/19/2018 06:31:54 09/19/1909/19/2018 CBC w/ auto diff eos 4 % not estab. Not Available [facility] ([facility]) [address] [place], [address], 09/19/2018 06:31:54 09/19/1909/19/2018 CBC w/ auto diff basos 1 % not estab. Not Available [facility] ([facility]) [address], [place], [address], 09/19/2018 06:31:54 09/19/1909/19/2018 CBC w/ auto diff immature cells ASSEMBLER UNIT Not Available [facility] ([facility]) [address], [place], [address], 09/19/2018 06:31:54 09/19/1909/19/2018 CBC w/ auto diff neutrophils (absolute) 2.7 x10e3 /uL 1.4-7. 0 Not Available [facility] ([facility]) [address] [facility] [place], [address], 09/19/2018 06:31:54 09/19/1909/19/2018 CBC w/ auto diff lymphs (absolute) 1.7 x10e3 /uL 0.7-3. 1 Not Available [facility] ([facility]) [address], [place], [address], 09/19/2018 06:31:54 09/19/1909/19/2018 CBC w/ auto diff monocytes(ab solute) 0.8 x10e3 /uL 0.1-0. 9 Not Available [facility] ([facility]) [address], [place], [address], 09/19/2018 06:31:54 09/19/1909/19/2018 CBC w/ auto diff eos (absolute) 0.2 x10e3 /uL 0.0-0. 4 Not Available [facility] ([facility]) [address], [place], [address], 09/19/2018 06:31:54 09/19/1909/19/2018 CBC w/ auto diff baso (absolute) 0.0 x10e3 /uL 0.0-0. 2 Not Available [facility] ([facility]) [address], [place], [address], 09/19/2018 06:31:54 09/19/1909/19/2018 CBC w/ auto diff immature granulocytes 0 % not estab. Not Available [facility] ([facility]) [address], [place], [address], 09/19/2018 06:31:54 09/19/1909/19/2018 CBC w/ auto diff immature grans (abs) 0.0 x10e3 /uL 0.0-0. 1 Not Available [facility] ([facility]) [address], [place], [address], 09/19/2018 06:31:54 09/19/1909/19/2018 CBC w/ auto diff NRBC ASSEMBLER UNIT Not Available [facility] ([facility]) [address], [place], [address], 09/19/2018 06:31:54 09/19/1909/19/2018 CBC w/ auto diff hematology comments: ASSEMBLER UNIT Not Available [facility] ([facility]) [address] [facility] [place], [address], 09/19/2018 06:31:54 09/19/1909/19/2018 BMP, serum or plasm a glucose 87 mg/dL 65-99 Not Available [facility] ([facility]) [address] [place], [address], 09/19/2018 06:31:55 09/19/1909/19/2018 BMP, serum or plasm a BUN 12 mg/dL 8-27 Not Available [facility] ([facility]) [address] [facility] [place], [address], 09/19/2018 06:31:55 09/19/1909/19/2018 BMP, serum or plasm a creatinine 1.68 mg/dL 0.57-1 .00 above high normal Not Available [facility] ([facility]) [address] [facility] [place], [address], 09/19/2018 06:31:55 09/19/1909/19/2018 BMP, serum or plasm a eGFR if nonafricn AM 30 mL/mi n/1.7 3 >59 below low normal Not Available [facility] ([facility]) [address] [facility] [place], [address], 09/19/2018 06:31:55 09/19/1909/19/2018 BMP, serum or plasm a eGFR if africn AM 34 mL/mi n/1.7 3 >59 below low normal Not Available [facility] ([facility]) [address] [facility] [place], [address], 09/19/2018 06:31:55 09/19/1909/19/2018 BMP, serum or plasm a BUN/creatini ne ratio 7 12-28 below low normal Not Available [facility] ([facility]) [address] [facility] [place], [address], 09/19/2018 06:31:55 09/19/1909/19/2018 BMP, serum or plasm a sodium 142 mmol/ L 134-14 4 Not Available [facility] ([facility]) [address] [place] [place], [address], 09/19/2018 06:31:55 09/19/1909/19/2018 BMP, serum or plasm a potassium 3.9 mmol/ L 3.5-5. 2 Not Available [facility] ([facility]) [address] [facility] [place], [address], 09/19/2018 06:31:55 09/19/1909/19/2018 BMP, serum or plasm a chloride 102 mmol/ L 96-106 Not Available [facility] ([facility]) [address] [facility] [place], [address], 09/19/2018 06:31:55 09/19/1909/19/2018 BMP, serum or plasm a carbon dioxide, total 29 mmol/ L 20-29 Not Available [facility] ([facility]) [address] [facility] [place], [address], 09/19/2018 06:31:55 09/19/1909/19/2018 BMP, serum or plasm a calcium 8.6 mg/dL 8.7-10 .3 below low normal Not Available [facility] ([facility]) [address] [facility] [place], [address], 09/19/2018 06:31:55 08/16/19 19 08/07/2018 US, pelvi s, compl ete No observ ation record ed. BARCODE Not Available 2018 12:40:35 Result Notes None recorded. Problems Name Problem SNOMED Code Status Onset Date Resolution Date Notes Provider Name and Address Organization Details Recorded Time Postmenopausa l bleeding 81375401 Active 2018 Ashley plascencia MD - [facility] DIRECTOR [employer] 9 10:28:23 History of malignant neoplasm of breast 045133877 Active 2018 right breast MD Margie Caro [employer] 9 10:53:11 Diabetes mellitus 51274457 Active 2018 MD Margie Caro [employer] 9 10:53:44 Hypercholeste rolemia 62684241 Active 2018 MD Margie Caro [employer] 9 10:54:07 Hypertensive disorder 62024671 Active 2018 MD Margie Caro [employer] 9 10:54:21 Problem Notes None recorded. Procedures Surgical History Date Name Laterality Status Provider Name and Address Organization Details Recorded Time 0 IUD Removal completed Ramesh Denson MD [address] [place], [address], MD Margie Carlos na [employer]ING 08/26/2019 15:07:01 9 Breast Lumpectomy completed Ramesh Denson MD [address] [place], [address], MD Margie Carlos na [employer]OR [employer]ING 08/26/2019 14:49:53 9 HYSTEROSCOPY, SURGICAL, WITH BIOPSY OF ENDOMETRIUM AND/OR POLYPECTOMY (SURG) completed Tiffanie zaldivar DIRECTOR SAL[employer] MARKETING 10/24/2018 10:28:00 9 Endometrial Biopsy completed Samantha zaldivar [employer] 08/14/2018 10:00:06 9 Colonoscopy completed Samantha zaldivar [employer] 08/14/2018 09:34:03 8 Most Recent Mammogram completed Maria Esther zaldivar [employer]ING 08/14/2018 09:16:13 2 Laparotomy completed Samantha zaldivar [employer] 08/14/2018 09:33:36 Imaging Results None recorded. Procedure Notes None recorded. Medical Equipment None Reported. Allergies No known drug allergies Medications Name Sig Start Date Stop Date Status Note LastModified by Organization Details LastModified Time Lipitor active Not Available Not Avail able Not Available Arimidex active Not Available Not Avai lable Not Available furosemid e active Not Available Not Available Not Available metoprolo l succinate active Not Available Not Available No t Available glimepiri de active Not Available Not Available Not Available Trulicity 0.75 mg/0.5 mL subcutane ous pen injector Inject 0.5 mL every week by subcutan eous route. active Not Available Not Available No t Available Liletta 20.4 mcg/24 hr (up to 8 years) 52 mg intrauter ine device Take by intraute rine route. 08/25 completed for control of PMB Not Available Not Available Not Available Vitals Date Recorded Body height Body mass index (BMI) Body weight Systolic And Diastolic Provider Name and Address Organization Details Last Updated DateTime 08/26/2019 162.56 cm 45.1 kg/m2 306004.79 g 140/86 mm[Hg] Tiffanie Cohn MD [facility] DIRECTOR SALES [employer] MARKETING 08/26/2019 14:39:06 Date Recorded Body height Body mass index (BMI) Body weight Systolic And Diastolic Provider Name and Address Organization Details Last Updated DateTime 08/27/2018 162.56 cm 45.5 kg/m2 731588.7 g 130/70 mm[Hg] Ramesh Denson MD [facility] [place], [address], - [facility] DIRECTOR SALES [employer] MARKETING 08/27/2018 16:07:47 Date Recorded Body height Body mass index (BMI) Body weight Systolic And Diastolic Provider Name and Address Organization Details Last Updated DateTime 09/11/2020 162.56 cm 43.2 kg/m2 588628.12 g 157/83 mm[Hg] Aminah Heath MD - [facility] DIRECTOR SALES [employer] MARKETING 09/11/2020 14:22:49 Date Recorded Body height Body mass index (BMI) Body weight Heart rate Body temperature Systolic And Diastolic Provider Name and Address Organization Details Last Updated DateTime 9 162.56 cm 46 kg/m2 453811. 76 g 63 /min 99 [degF] 140/80 mm[Hg] santino smart [facility] DIRECTOR SALES AND MARKETING 9 12:53:00 Date Recorded Body height Body mass index (BMI) Body weight Systolic And Diastolic Provider Name and Address Organization Details Last Updated DateTime 10/24/2018 162.56 cm 44.5 kg/m2 471174.42 g 136/76 mm[Hg] Ashley [facility] DIRECTOR SALES AND MARKETING 10/24/2018 13:49:34 Social History Question Answer Notes LastModified by Organizat ion Details LastModified Time Tobacco Smoking Status Former Smoker Maria [facility]encia [facility] SALES AND MARKETING 08/14/2018 09:21:15 Are You Currently Sexually Active With Anyone Who Has Traveled (within The Last 12 Weeks) To A Zika-affected Area? No [email or web address] Information not available 08/14/2018 Are You Planning To Conceive With Someone Who Has Traveled (within The Last 12 Weeks) To A Zika-affected Area? No [email or web address] Information not available 08/14/2018 Is Blood Transfusion Acceptable In An Emergency? Yes [email or web address] Information not available 08/14/2018 How Much Tobacco Do You Chew? None Information not available 08/26/2019 Which Illicit Or Recreational Drugs Have You Used? Never [email or web address] Information not available 08/14/2018 Education 2 Year College [email or web address] Information not available 09/18/2018 Live Alone Or With Others? With Others [email or web address] Information not available 09/18/2018 What Was The Date Of Your Most Recent Tobacco Screening? 09/18/2018 Information not available 12/06/2018 What Is Your Relationship Status? Information not available 08/14/2018 How Many Years Have You Smoked Tobacco? 8 [email or web address] Information not available 08/14/2018 Sex: Unknown Functional Status Question Answer Note LastModified by Organizat ion Details LastModified Time What is your level of alcohol consumption? None Information not available 08/14/2018 Do you or have you ever used smokeless tobacco? Never used smokeless tobacco Information not available 08/26/2019 Are you currently employed? No Information not available 08/14/2018 What is your occupation? retired [email or web address] Information not available 08/14/2018 Do you or have you ever used e-cigarettes or vape? Never used electronic cigarettes Information not available 08/26/2019 Mental Status None recorded. Family History Relationship Description Onset Age of this Age Resolved Age Notes LastModified by Organization Details LastModified Time Father Malignant neoplasm of bone [email or web address] Not available 2018 09:18:40 Paternal Aunt Malignant neoplasm of uterus [email or web address] Not available 2018 09:18:51 Mother Diabetes mellitus 73 Not available 2018 09:19:09 Mother Heart disease [email or web address] Not available 2018 09:20:31 Sister Heart disease x 7 sister s [email or web address] Not available 08/14/2018 09:20:31 Unspecified Relation Diabetes mellitus pt states runs in the family mostly on father s side [email or web address] Not available 08/14/2018 09:21:10 Medical History Condition Response Blood Transfusion N Breast Cancer Y High Cholesterol Y Diabetes Y Hypertension Y Gynecological History Statement/Question Response 08/14/2018 Sexual preference Sex only with men Age/Date of Menopause 52 Age at Menarche 12 Current Control Method Menopause Most Recent Mammogram 11/12/2017 Obstetrics History GPAL:G 3 P 3 0 0 3 Type Value Full Term 3 Living 3 Total 3 Past Encounters Encounter ID Performer Location Encounter Start Date Encounter Closed Date Diagnosis/Indication Diagnosis SNOMED-CT Code Diagnosis ICD10 Code Diagnosis IMO Codes Diagnosis Note [id number] AYUSH Walker OFFICE [address] [place] [id number] 08/14/2018 08:51:26 08/14/2018 10:38:29 Gynecologic examination 12898577 Z01.419 Postmenopa usal bleeding 07854654 N95.0 [id number] MD KATIE Nicholson OFFICE [address] [place] [id number] 08/27/2018 15:33:28 08/28/2018 07:53:26 Postmenopausal bleeding 14913606 N95.0 [id number] MD KATIE Nicholson OFFICE [address] [place] [id number] 09/18/2018 12:35:01 09/18/2018 14:26:30 Pre-surgery evaluation 148770311 Z01.818 [id number] MD KATIE Nicholson OFFICE [address] [place] [id number] 10/24/2018 13:12:59 10/24/2018 16:09:05 Postoperative visit 507402665 Z09 [id number] MD KATIE Nicholson OFFICE [address] [place] [address] 08/26/2019 14:27:11 08/26/2019 15:35:26 Removal of intrauterine device 70485004 Z30.432 [id number] MD KATIE Nicholson OFFICE [address] [place] [id number] 09/11/2020 14:16:19 09/11/2020 16:02:05 Routine gynecologic examination done 6507447554 9101 Z01.419 at risk of endometria l hyperplasi a, no current bleeding Health Concerns Section Related Observation LastModified by Organization Detai ls LastModified Time None Recorded Concern Status LastModified by Organization Details LastModified Time None Recorded Advance Directives Directive None Recorded Payers Insurance Date Sequence Insurance Name Policy Number Policy Goldman Covered Member ID Goldman Member ID Guarantor Name 02/18/2021 1 [employer] (MEDICARE REPLACEMENT/AD VANTAGE - HMO) [id number] Alessandra Wang lbert [id number] Alessandra Peralta Notes Date Note Type Note Provider Name and Address Organization Details Recorded Time 9 text/html 73 yo woman presents for discussion of plan for PMB. Patient had an episode of moderate to heavy bleeding at the end of June. US showed a 11 mm EMS and biopsy showed polyp and disordered proliferative endometrium. Patient has DM, hypertension and her BMI is 45. Ramesh Denson MD [address] [place], [address], MD Margie gamboa DIRECTOR SALES [employer] MARKETING 08/27/2018 19:12:33 9 text/html for pre-op for hysteroscopy/D&C for PMB Has appointment with PCP for pre-op evaluation MD Moni Nicholson., [place], [address], MD Margie gamboa DIRECTOR SALES [employer]ETING 09/18/2018 13:39:25 9 text/html [employer] Post-Op VisitReported by PatientHPIFor date, patient reportsdate of surgery: (10/03/18). For procedure, patient reportsprocedure: (hysteroscopy with curettage). For procedure details, patient reportsreason for procedure: (pmb and suspected polyp),operative findings: (normal endometrium), andpathology findings: (proliferative endometrium). For post operative symptoms, patient reportsno bleeding,no pain,no constipation, andno dysuria/urinary symptoms. MD Moni Nicholson., [place], [address], MD Margie gamboa DIRECTOR SALES [employer] MARKETING 10/24/2018 15:14:09 0 text/html Presents for removal of mirena IUD placed last year for endometrial protection. Patient is to start AI for her breast cancer, IUD is removed at oncologist's request. MD Moni Nicholson., [place], [address], MD Margie gamboa DIRECTOR SALES AND MARKETING 08/26/2019 15:08:04 1 text/html Retired version - [employer] WW VisitReported by PatientHistoryFor history, patient reportsno gynecologic complaints.Genitourinary symptomsFor menstrual, patient reportsamenorrhea due to menopause. For menopausal symptoms, patient reportsno menopausal symptoms. For vulva, patient reportsnormal vulva. For vagina, patient reportsnormal vaginal lubricationandnormal vaginal discharge. For sexual activity/complaints, patient reportsno sexual complaintsandnot sexually active. For urinary symptoms, patient reportsno hematuriaandno incontinence(recently treated for uti). For breast, patient reportsno breast pain,no breast lump, andno nipple discharge.Followed by Dr. Shukla for diabetes, Dr. Islas for breast cancer Ramesh Denson MD [address] [place] [address] [place], [id number], - [facility] DIRECTOR SALES AND MARKETING 09/11/2020 15:44:05 OBGyn Episode Ob Episode Information Episode Created Date Number of Fetuses Patient Bloodtype Patient rh Status Prepregnancy Weight lbs Domestic Partner Domestic Partner Phone Father Name Editorial Writer Status 08/15/19 19 1 CLOSED Fetus Data First Name Last Name Admitted to NICU Weight (g) Sex Living Outcome Pediatric Complications Fetus ID Race Codes Race Delivery Type M Full Term [id number] Vaginal Jace Calculation Initial Jace Date Initial Exam Date Initial Exam Provider Initial Ultrasound Date Last Menstrual Period Date Ultra Sound Weeks Gestation 0 Eighteen To Twenty Week Jace Update Ultra Sound Date Fundal Height At Umbil Quickening Date Ultra Sound Latest Weeks Gestation Final Jace Confirmed By Final Jace Confirmed Date Final Jace Date Ultra Sound Latest Days Gestation 0 0 Menstrual History Last Menstrual Date Menses Monthly On Bcp Conception Prior Menses Frequency Hcg Plus Date Menarche Onset Age Delivery Information Delivery Date Delivery Type Labor Anesthesia Weeks Gestation Incision Type Labor Labor Length Hrs Delivered By Post Complications Tubal Sterilization Discharge Date Comments 5 40 false [facility]/ Dr. Choudhary y Discharge Information Feeding Method Contraceptive Method Maternal HG B and HCT Levels Ob Episode Information Episode Created Date Number of Fetuses Patient Bloodtype Patient rh Status Prepregnancy Weight lbs Domestic Partner Domestic Partner Phone Father Name Editorial Writer Status 08/15/19 19 1 CLOSED Fetus Data First Name Last Name Admitted to NICU Weight (g) Sex Living Outcome Pediatric Complications Fetus ID Race Codes Race Delivery Type F Full Term [id number] Vaginal Jace Calculation Initial Jace Date Initial Exam Date Initial Exam Provider Initial Ultrasound Date Last Menstrual Period Date Ultra Sound Weeks Gestation 0 Eighteen To Twenty Week Jace Update Ultra Sound Date Fundal Height At Umbil Quickening Date Ultra Sound Latest Weeks Gestation Final Jace Confirmed By Final Jace Confirmed Date Final Jace Date Ultra Sound Latest Days Gestation 0 0 Menstrual History Last Menstrual Date Menses Monthly On Bcp Conception Prior Menses Frequency Hcg Plus Date Menarche Onset Age Delivery Information Delivery Date Delivery Type Labor Anesthesia Weeks Gestation Incision Type Labor Labor Length Hrs Delivered By Post Complications Tubal Sterilization Discharge Date Comments 7 40 false [facility]/ Dr. Funmi merlos Discharge Information Feeding Method Contraceptive Method Maternal HG B and HCT Levels Ob Episode Information Episode Created Date Number of Fetuses Patient Bloodtype Patient rh Status Prepregnancy Weight lbs Domestic Partner Domestic Partner Phone Father Name Editorial Writer Status 08/15/19 19 1 CLOSED Fetus Data First Name Last Name Admitted to NICU Weight (g) Sex Living Outcome Pediatric Complications Fetus ID Race Codes Race Delivery Type M Full Term [id number] Vaginal Jace Calculation Initial Jace Date Initial Exam Date Initial Exam Provider Initial Ultrasound Date Last Menstrual Period Date Ultra Sound Weeks Gestation 0 Eighteen To Twenty Week Jace Update Ultra Sound Date Fundal Height At Umbil Quickening Date Ultra Sound Latest Weeks Gestation Final Jace Confirmed By Final Jace Confirmed Date Final Jace Date Ultra Sound Latest Days Gestation 0 0 Menstrual History Last Menstrual Date Menses Monthly On Bcp Conception Prior Menses Frequency Hcg Plus Date Menarche Onset Age Delivery Information Delivery Date Delivery Type Labor Anesthesia Weeks Gestation Incision Type Labor Labor Length Hrs Delivered By Post Complications Tubal Sterilization Discharge Date Comments 2 40 false [facility]? Discharge Information Feeding Method Contraceptive Method Maternal HG B and HCT Levels
--- OUTSIDE RECORDS SUMMARY | 2025-04-03 06:33 | XMS_ITS | Encounter Summary ---
Author Organization [facility], Address [address] [place] [address] Phone Care Team Providers Care Cigarette Seller Name Role Phone Lee Teresa Primary Care Provider [phone] Encounter Details Date Type Department Care Team (Late st Contact Info) Description 04/01/2025 Treatment [facility], [address] [place] [address] Pauline Macdonald FNP-C [address] [place] [address] [place] [phone] End stage renal disease; Dependence on renal dialysis Social History Tobacco Use Types Packs/Day Years [...] encounter Miscellaneous Notes * Dialysis Note - Pauline Macdonald FNP-C - 04/01/2025 12:00 AM EST Patient: Alessandra King, 1945, 79y, F Dialysis Location: [facility] Attending Pipe Finishing Supervisor: Guillermo Guillory Service Date: 04/01/2025 Service Provider: Pauline Macdonald NP I met face to face with the patient today. OVERVIEW The patient presented with ESRD on dialysis Primary cause of renal failure: Type 2 diabetes mellitus with diabetic chronic kidney disease LAST HOSPITALIZATION Discharge Diagnosis: A41.9 Sepsis, unspecified organism J18.8 Other pneumonia, unspecified organism N39.0 Urinary tract infection, site not specified Admission Date 01/23/25 Discharge Date 01/29/25 DIALYSIS PRESCRIPTION IHD 3x Week Start date: 03/15/25 Dialyzer: FX CorAL 60 BFR: 450 DFR: Manual 800 Potassium: 2.0 Sodium: 137 EDW: 92 Duration: 4:00 Calcium: 2.50 Bicarb: 35 Rx updated on: 03/15/2025 TREATMENT ASSESSMENT BP Sit Pre 04/01/2025: 149/70 03/29/2025: 133/62 03/27/2025: 132/62 BP Sit Post 04/01/2025: 145/63 03/29/2025: 130/69 03/27/2025: 136/69 Prescribed Tx time 04/01/2025: 4:00 03/29/2025: 4:00 03/27/2025: 4:00 Tx Duration 04/01/2025: 4:00 03/29/2025: 3:57 03/27/2025: 4:03 Missed Treatments 0 - last 30 days 0 - last 60 days FLUID ASSESSMENT EDW (kg) 04/01/2025: 92.0 03/29/2025: 92.0 03/27/2025: 92.0 Weight Pre (kg) 04/01/2025: 95.0 03/29/2025: 93.6 03/27/2025: 94.7 Weight Post (kg) 04/01/2025: 92.7 03/29/2025: 91.8 03/27/2025: 92.1 PWV (kg) 04/01/2025: 0.7 03/29/2025: -0.2 03/27/2025: 0.1 UF Rate (mL/kg/hr) 04/01/2025: 6.2 03/29/2025: 5 03/27/2025: 7 ADEQUACY ASSESSMENT spKt/V, URR 03/20/2025: 1.7, 77.0 02/13/2025: 1.67, 76.0 01/16/2025: 1.78, 78.0 ACCESS ASSESSMENT Access Type: AVGraft Access SubType: Synthetic - Standard (PTFE) Access Status: Active (In Use) - 06/13/2024 Access Location: Left Upper Arm Created: 05/17/2024 Flow 03/15/2025: 1182 03/01/2025: 905 02/15/2025: 1176 ANEMIA ASSESSMENT HGB 03/27/2025: 12.0 03/20/2025: 11.7 03/13/2025: 10.4 Ferritin 02/27/2025: 389.0 01/30/2025: 697.0 01/02/2025: 336.0 Mircera, IVP (mcg) 03/18/2025: 100 03/04/2025: 100 02/18/2025: 100 Iron Sucrose (Venofer) (mg) 03/27/2025: 50 03/20/2025: 50 03/13/2025: 50 BMM ASSESSMENT PTH, Intact 02/27/2025: 426.0 01/30/2025: 475.0 01/02/2025: 341.0 Calcium, Phosphorus 02/27/2025: 9.0, 5.4 01/30/2025: 8.8, 6.3 01/02/2025: 8.9, 5.9 Vitamin D (Calcitriol) Oral (mcg) 04/01/2025: 0.75 03/29/2025: 0.75 03/27/2025: 0.75 NUTRITION ASSESSMENT Potassium, Albumin 02/27/2025: 4.4, 3.8 01/30/2025: 4.3, 3.6 01/07/2025: 4.1, - eNPCR 03/20/2025: 0.86 02/13/2025: 0.89 01/16/2025: 0.93 DIAGNOSIS Chief Complaint: N18.6 End stage renal disease Comments: pt reports she is tired all the time, worse after dialysis. She used to have a CPAP machine when she lived in [place]. will send her to PCP for sleep study referral Patient is stable. Patient data updated 04/02/2025 at 7:04 AM Signed By: Pauline Macdonald NP on 04/02/2025 7:04:30 AM documented in this encounter Plan of Treatment Upcoming Encounters Date Type Department Care Team (Late st Contact Info) Description 05/30/2025 11:00 AM EST Procedure visit [facility] [address] [place] [id number] documented as of this encounter Visit Diagnoses Diagnosis End stage renal disease Dependence on renal dialysis documented in this encounter Care Teams Cigarette Seller Relationship Specialty Start Date End Date Teresa Scales [address] [facility] [address] [place] [address] PCP - General 03/27/24 documented as of this encounter
--- OUTSIDE RECORDS SUMMARY | 2025-04-03 06:33 | XMS_ITS | Encounter Summary ---
Author Organization [facility], Address [address] [place] [address] Phone Care Team Providers Care Veterinary Technology Instructor Name Role Phone Teresa Scales Primary Care Provider [phone] Encounter Details Date Type Department Care Team (Late st Contact Info) Description 11/22/2024 Documentation Only [facility] [address] [place] [address] [place], [place] [address] [place] [phone] Social History Tobacco Use Types Packs/Day Years [...] visit [facility] - [facility] [address] [place] [address] documented as of this encounter Visit Diagnoses Not on filedocumented in this encounter Care Teams Veterinary Technology Instructor Relationship Specialty Start Date End Date Teresa Scales [address] [facility] [address] [place], [place] [id number] PCP - General 03/27/24 documented as of this encounter
[2025-04-03 06:48] LABS: MANUAL DIFF FLAG NO
--- NOTE | 2025-04-03 06:49 | PC.NURSE ---
20g IV RAC. no labs or BP on L arm
[2025-04-03 06:50] LABS: Hematocrit 38.3 % (37.0-47.0); Hemoglobin 12.7 g/dl (12.0-16.0); Imm Gran Abs Auto 0.02 X10*3/uL (0.00-0.03); Imm Gran Pct Auto 0.5 % (0.0-0.4); Lymphocytes Absolute Auto 0.7 X10*3/uL (1.2-4.9); Mean Corpuscular HGB Conc 33.2 g/dl (31.0-35.0); Mean Corpuscular Hemoglobin 30.1 pg (27.0-33.0); Mean Corpuscular Volume 90.8 fL (80.0-98.0); NRBC Abs Auto 0.000 X10*3/uL (0.0-0.012); NRBC Pct Auto 0.0 /100WBC (0.0-0.2); Platelet Count 173 X10*3/uL (160-400); Red Blood Count 4.22 X10*6/uL (4.20-5.50); White Blood Count 4.2 X10*3/uL (4.8-10.8)
[2025-04-03 07:14] LABS: Troponin-I High Sensitivity 11.1 ng/L (<3.5-17.0)
[2025-04-03 07:22] LABS: Alanine Aminotransferase 6 U/L (0-31); Albumin Level 4.0 g/dL (3.5-5.0); Alkaline Phosphatase 71 U/L (39-117); Anion Gap 18 (12-20); Aspartate Amino Transferase 17 U/L (5-31); Blood Urea Nitrogen 50 mg/dL (9-16); Calcium 9.0 mg/dL (8.4-10.2); Carbon Dioxide 27 mmol/L (22-29); Chloride 98 mmol/L (96-108); Creatinine Clr Calc Pharmacy 4.9; Estimated Glomerular Filt Rate 4; Lipase 57 U/L (8-78); Magnesium 2.1 mg/dL (1.6-2.6); Potassium 4.4 mmol/L (3.3-5.1); Sodium 139 mmol/L (135-145); Total Protein 7.3 g/dL (6.5-8.0)
[2025-04-03 07:24] LABS: Resp Syncy Virus RNA Qual PCR NEGATIVE (Negative); SARS COV2 PCR INHOUSE NEGATIVE (Negative)
[2025-04-03 08:41] VITALS: BP 150/70; PULSE 99; RESP 17; O2SAT 94
--- NOTE | 2025-04-03 09:36 | PC.NURSE ---
Patient used call wynn to have head of bed elevated. Noted to be finishing eating food brought in by daughter. Aware that ultrasound will be done. No acute distress noted. Provider (Dr. Martinez) aware.
[2025-04-03 10:19] VITALS: BP 147/69; PULSE 89; RESP 14; TEMP 36.5; O2SAT 96
[2025-04-03 12:20] VITALS: BP 141/58; PULSE 82; TEMP 36.6; O2SAT 97
--- NOTE | 2025-04-03 12:33 | PM.IMHP ---
History of Present Illness Date of Service: 04/03/25 Attending physician on admission: Kristi High Chief Complaint: abdominal pain This is a 79-year-old female with a history of ESRD on hemodialysis who presents to the emergency department with abdominal pain. The patient had last presented to this hospital on 01/23/2025. At that time she was admitted to the hospital for evaluation of weakness and was found to have a fever and was treated for UTI and pneumonia. That time choledocholithiasis was a concern but was ruled out by MRCP. She was discharged on January 29 to the SN[facility] and she has a remained at the facility since discharge. She reports over the past 1 week she has had right-sided abdominal pain. Last evening she began having associated nausea and vomiting which prompted her to come to the emergency department for evaluation. Today in the emergency department her LFTs were within normal limits but imaging was concerning for acute cholecystitis. She was evaluated by General surgery who felt she should be admitted to the medical service for conservative management. In the emergency department she was treated with IV antibiotics and required IV narcotics for adequate pain control. She continues to have persistent abdominal pain at this time. She denies any associated fever or chills. She has not had any diarrhea. Review of Systems Review of Systems: Yes all other systems are reviewed and are negative Constitutional: Constitutional: Denies chills and Denies fever(s) Cardiovascular: Cardiovascular: Denies chest pain Gastrointestinal: Gastrointestinal: Reports abdominal pain, Denies diarrhea, Reports nausea and Reports vomiting [facility] Medical History Tobacco use disorder History of breast cancer ESRD (end stage renal disease) on dialysis T2DM (type 2 diabetes mellitus) HLD (hyperlipidemia) HTN (hypertension) Social History Household Members: Children Housing: [facility] Other:: short term rehab Do you presently have visiting nurse or other home services: No Patient Tobacco Use Status: Current everyday Tobacco user Tobacco use type: Cigarette Smoked in Last 30 Days: Yes Patient Interested in Nicotine Replacement: No Patient Given Instructions on How to Stop Smoking: No (refused) Second Hand Smoke Exposure: No Use of substances other than those prescribed or required for medical reasons: No Have you been hit, kicked, punched, or otherwise hurt by someone within the past year? If so, by whom?: No Do you feel safe in your current relationship?: No Is there a partner from a previous relationship who is making you feel unsafe now?: No Are you made to feel afraid or neglected: No Advance Directives: Yes Advance Directives on File: Yes Advance Directives Date on File: 01/28/25 Do you have a plan to hurt others: No Plan Recently lost weight without trying: Unsure Eating poorly because of decreased appetite: No Nutrition Risks: No Nutritional Risk Patient : No Poor oral hygiene: No service: No Meds Allergies Allergy/AdvReac Type Severity Reaction Status Date / Time No Known Allergies Allergy Verified 04/03/25 05:55 Home Medications ?Medication ?Instructions ?Recorded ?Confirmed ?Last Taken ?Type aspirin 81 mg chewable tablet 81 mg PO DAILY 01/23/25 04/03/25 01/22/25 History atorvastatin 20 mg tablet 20 mg PO DAILY 01/23/25 04/03/25 01/22/25 History clopidogrel 75 mg tablet 75 mg PO DAILY 01/23/25 04/03/25 01/22/25 History dulaglutide 4.5 mg/0.5 mL 4.5 mg subcut QWEEK 01/23/25 04/03/25 2 Weeks Ago History subcutaneous pen injector ~01/09/25 [facility] famotidine 20 mg tablet 20 mg PO BEDTIME 01/23/25 04/03/25 01/22/25 History gabapentin 100 mg capsule 100 mg PO BID 01/23/25 04/03/25 01/22/25 History losartan 100 mg tablet 100 mg PO DAILY 01/23/25 04/03/25 01/22/25 History sevelamer carbonate 2.4 gram oral 2 g PO TIDWM 01/23/25 04/03/25 01/22/25 History powder packet acetaminophen 325 mg tablet 650 mg PO Q4H PRN Pain/Fever 04/03/25 04/03/25 Unknown History acetaminophen 650 mg rectal 650 mg KY Q4H PRN Pain/Fever 04/03/25 04/03/25 Unknown History suppository bisacodyl 10 mg rectal suppository 10 mg [place] DAILY PRN Constipation 04/03/25 04/03/25 Unknown History glucagon 1 mg solution for 1 mg subcut Q20M PRN BS less then 04/03/25 04/03/25 Unknown History injection 70 insulin lispro 100 unit/mL 1 sliding scale dose subcut QIDACHS 04/03/25 04/03/25 Unknown History subcutaneous solution (Humalog U-100 Insulin) magnesium hydroxide 400 mg/5 mL 5 ml PO DAILY PRN Constipation 04/03/25 04/03/25 Unknown History oral suspension (Milk of Magnesia) meclizine 12.5 mg tablet 12.5 mg PO Q6H PRN Dizziness 04/03/25 04/03/25 Unknown History naloxone 4 mg/actuation nasal 4 mg intranasal Q3M PRN Opioid 04/03/25 04/03/25 Unknown History spray (Narcan) Overdose polyethylene glycol 3350 17 17 g PO DAILY Constipation 04/03/25 04/03/25 Unknown History gram/dose oral powder (Miralax) sodium phosphates 19 gram-7 118 ml [place] DAILY PRN Constipation 04/03/25 04/03/25 Unknown History gram/118 mL enema (Fleet Enema) Physical Exam Vital Signs and Narrative: Vital Signs: Last Vital Signs Temp 97.8 F 04/03/25 12:20 Pulse 82 04/03/25 12:20 Resp 14 04/03/25 10:19 BP 141/58 H 04/03/25 12:20 Pulse Ox 97 04/03/25 12:20 O2 Del Method Room Air 04/03/25 12:20 BMI result Body Mass Index 34.3 Const: General: alert and awake Nutritional Appearance: overweight Orientation/consciousness: patient oriented x3 Resp: Effort & Inspection: normal respiratory effort, able to speak in complete sentences, no respiratory distress and no use of accessory muscles Cardio: Rate: regular rate GI: Other: right side tenderness to palpation, no regidity Palpation (GI): Soft to palpation Neuro: General: patient oriented x3, moves all extremities and CN's II-XI intact bilaterally Results Labs 04/03/25 06:27 04/03/25 06:27 Labs: Laboratory Results - last 24 hr 04/03/25 04/03/25 06:27 11:10 MCV 90.8 MCH 30.1 MCHC 33.2 RDW 14.5 Plt Count 173 MPV 9.8 Immature Gran % (Auto) 0.5 H Neut % (Auto) 72.1 Lymph % (Auto) 15.6 L [place] % (Auto) 9.4 Eos % (Auto) 1.9 Baso % (Auto) 0.5 Lymph # (Auto) 0.7 L [place] # (Auto) 0.4 Eos # (Auto) 0.1 Baso # (Auto) 0.0 Abs Immat Gran (auto) 0.02 Absolute Neuts (auto) 3.1 Absolute Nucleated RBC 0.000 Nucleated RBC % (auto) 0.0 Anion Gap 18 Estim Creat Clear Calc 4.9 Estimated GFR 4 Random Glucose 240 H Lactic Acid 1.4 Calcium 9.0 Magnesium 2.1 Total Bilirubin 0.7 Direct Bilirubin 0.3 AST 17 ALT 6 Alkaline Phosphatase 71 Troponin I High Sens 11.1 C-Reactive Protein 0.25 Total Protein 7.3 Albumin 4.0 Lipase 57 Influenza Type A (PCR) NEGATIVE Influenza Type B (PCR) NEGATIVE RSV RNA Qual (PCR) NEGATIVE SARS-CoV-2 RNA (RT-PCR) NEGATIVE Imaging Radiologist's Impressions: Impressions Chest X-Ray 04/03/25 08:12 IMPRESSION: No acute cardiopulmonary abnormality. Electronically signed by: Logan Collins MD 04/03/2025 08:25 AM EST RP Abdomen/Pelvis CT 04/03/25 08:23 IMPRESSION: Concerning acute calculus cholecystitis in the correct clinical settings. Fleischner guidelines were followed. Electronically signed by: Ector Mccord MD 04/03/2025 08:59 AM EST RP Abdomen Ultrasound 04/03/25 10:05 IMPRESSION: Concerning acute calculus cholecystitis in the correct clinical settings. Electronically signed by: Ector Mccord MD 04/03/2025 10:35 AM EST RP Assessment and Plan (1) Acute cholecystitis: Status: Acute Plan This is a 79F with history of htn, hld, dm, breast ca, esrd on hd (Dr. Guillory) presented to the emergency department with abdominal pain, nausea, vomiting found to have concern for acute cholecystitis Acute cholecystitis LFTs within normal limits Plan for conservative management with IV antibiotics, continue renal dosed zosyn NPO for now, IV pain control, antiemetics General surgery consultation pending ESRD on HD TuTa nephrology consult Continue hemodialysis inpatient continue sevalamer Chronic anemia due to renal disease Stable T2DM with hyperglycemia Trulicity NF Insulin sliding scale HLD continue statin on dapt - pt unsure indication DVT prophylaxis-heparin Full code Patient will likely require 2 midnight stay in the hospital for management of acute cholecystitis requiring IV antibiotics, IV narcotics and specialist evaluation requiring possible surgical intervention Quality Stroke Does the patient have a stroke diagnosis?: No VTE Prior VTE?: No VTE Risk Level:: Medical - moderate - high VTE Device Contraindication: N/A - Device Ordered VTE Drug Contraindication: N/A - Med Ordered
--- NOTE | 2025-04-03 13:17 | P.CONGS_ITS ---
<Statement entered by Jayce Chacon MD - 04/03/25 14:36> Continue antibiotic therapy and maintain NPO. Anticipate operative intervention tomorrow, 04/04/25 History of Present Illness Consult details Consult date: 04/03/25 <Ankit Calhoun PA-C - Last Filed: 04/03/25 15:24> Reason for consult: other (cholecystitis) <Ankit Calhoun PA-C - Last Filed: 04/03/25 15:24> Narrative: 79 year old female with history of ERSD on HD (TTS), T2DM, HTN who presented to the ED today with right upper abdominal pain with associated nausea and vomiting. She seems to be an unreliable historian, however, she states this began about a week ago and has gotten progressively worse when suddenly last night developed nausea and vomiting. She was [place] [facility] [place], fever, was found to have pneumonia, UTI. During that admission there was concern for choledocolithaisis but was ruled out with MRCP. Labs in ED significant for leukopenia, 4.2, significantly elevated creatinine, 10, electrolytes were WNL. CT scan showing stones in the area of the neck of a distended GB with thickened wall, without significant pericholecsytic inflammatory changes. US was then obtained showing a thickened wall up to 7 mm, and positive sonographic murphys sign. Patient was asked about previous abdominal surgies but was unsure about this part of her history. Denies any allergies, drug use. Currently continues to have pain in the RUQ, nausea. She has been started on IV zosyn, fluids. <Ankit Calhoun PA-C - Last Filed: 04/03/25 15:24> Review of Systems 2 Review of Systems: Yes all other systems are reviewed and are negative < Ankit Calhoun PA-C - Last Filed: 04/03/25 15:24> FOR[facility]LY [facility] Past Medical History Medical History: Medical History Tobacco use disorder History of breast cancer ESRD (end stage renal disease) on dialysis T2DM (type 2 diabetes mellitus) HLD (hyperlipidemia) HTN (hypertension) <Ankit Calhoun PA-C - Last Filed: 04/03/25 15:24> Social History Social History: Social History Household Members: Children Housing: Apartment Do you presently have visiting nurse or other home services: No Patient Tobacco Use Status: Current everyday Tobacco user Tobacco use type: Cigarette Smoked in Last 30 Days: Yes Use of substances other than those prescribed or required for medical reasons: No Advance Directives: Yes Advance Directives on File: Yes Advance Directives Date on File: 01/28/25 service: No <Ankit Calhoun PA-C - Last Filed: 04/03/25 15:24> Meds Allergies/Adverse reactions: Allergies Allergy/AdvReac Type Severity Reaction Status Date / Time No Known Allergies Allergy Verified 04/03/25 05:55 <Ankit Calhoun PA-C - Last Filed: 04/03/25 15:24> Active Medications: Current Medications Acetaminophen (Acetaminophen 325 Mg Tablet) 650 mg PO Q6H PRN PRN Reason: Pain, Mild 1-3,fever,headache Dextrose (Dextrose 50 % 25 Gm/50 Ml Syringe) 25 gm IVPUSH Q15M PRN; Protocol PRN Reason: per Hypoglycemia Standing Ord. Glucose (Glucose Gel 15 Gm Gel..Gram.) 15 gm PO Q15M PRN; Protocol PRN Reason: per Hypoglycemia Standing Ord. Heparin Sodium (Porcine) (Heparin Sodium,Porcine 5,000 Unit/Ml Vial) 5,000 unit SUBCUT Q12H [place] Piperacillin Sod/Tazobactam (Sod 4.5 gm/ Sodium Chloride) 100 mls @ 200 mls/hr IV Q12H [place] Insulin Human Lispro (Insulin Lispro 100 Unit/Ml 3 Ml Vial) [facility]; Protocol Magnesium Hydroxide (Milk Of Magnesia 30 Ml Oral.Susp) 30 ml PO DAILY PRN PRN Reason: Constipation Melatonin (Melatonin 3 Mg Tablet) 6 mg PO BEDTIME PRN PRN Reason: Insomnia Morphine Sulfate (Morphine Sulfate 4 Mg/Ml Cartridge) 2 mg IVPUSH Q4H PRN; Protocol PRN Reason: Pain, Severe (Pain Scale 7-10) Ondansetron HCl (Ondansetron Hcl 4 Mg/2 Ml Vial) 4 mg IVPUSH Q8H PRN PRN Reason: Nausea and Vomiting Sodium Chloride (0.9 % Sodium Chloride Flush 3 Ml Syringe) 3 ml IVFLUSH QSHIFT [place] <Ankit Calhoun PA-C - Last Filed: 04/03/25 15:24> Home medications: Home Medications ?Medication ?Instructions ?Recorded ?Confirmed ?Last Taken ?Type aspirin 81 mg chewable tablet 81 mg PO DAILY 01/23/25 01/23/25 01/22/25 History atorvastatin 20 mg tablet 20 mg PO DAILY 01/23/2501/1301/22/25 History clopidogrel 75 mg tablet 75 mg PO DAILY 01/23/2501/1301/22/25 History dulaglutide 4.5 mg/0.5 mL 4.5 mg subcut QWEEK 01/23/25 2 Weeks Ago History [facility] famotidine 20 mg tablet 20 mg PO DAILY 01/23/2501/1301/22/25 History gabapentin 100 mg capsule 100 mg PO DAILY 01/23/2504/0801/22/25 History losartan 100 mg tablet 100 mg PO DAILY 01/23/2504/0801/22/25 History sevelamer carbonate 2.4 gram oral 2 g PO TIDWM 5 01/23/25 01/22/25 History powder packet <MEGAN Cohen Last Filed: 04/03/25 15:24> Physical Exam 2 Vital Signs: Vital Signs: Last Vital Signs Temp 97.8 F 04/03/25 12:20 Pulse 82 04/03/25 12:20 Resp 14 04/03/25 10:19 BP 141/58 H 04/03/25 12:20 Pulse Ox 97 04/03/25 12:20 O2 Del Method Room Air 04/03/25 12:20 BMI result Body Mass Index 34.3 <Ankit Calhoun PA-C - Last Filed: 04/03/25 15:24> Const: General: comfortable and no acute distress <MEGAN Cohen Last Filed: 04/03/25 15:24> Orientation/consciousness: patient oriented x3 <MEGAN Cohen Last Filed: 04/03/25 15:24> Resp: Effort & Inspection: normal respiratory effort and able to speak in complete sentences <MEGAN Cohen Last Filed: 04/03/25 15:24> GI: Inspection: No distended <Ankit Calhoun PA-C - Last Filed: 04/03/25 15:24> Palpation (GI): Soft to palpation and Tenderness to palpation present (GI) in the RUQ and Pelayo's sign positive (positive) <MEGAN Cohen Last Filed: 04/03/25 15:24> Neuro: General: patient oriented x3 <MEGAN Cohen Last Filed: 04/03/25 15:24> Results Labs Result diagrams: 04/03/25 06:27 04/03/25 06:27 <Ankit Calhoun PA-C - Last Filed: 04/03/25 15:24> Labs: Abnormal lab results 04/03/25 Range/Units 06:27 WBC 4.2 L (4.8-10.8) X10*3/uL Immature Gran % (Auto) 0.5 H (0.0-0.4) % Lymph % (Auto) 15.6 L (20-40) % Lymph # (Auto) 0.7 L (1.2-4.9) X10*3/uL BUN 50 H (9-16) mg/dL Creatinine 10.06 H* (0.5-1.4) mg/dL Random Glucose 240 H (60-115) mg/dL Short CBC 04/03/25 Range/Units 06:27 WBC 4.2 L (4.8-10.8) X10*3/uL Hgb 12.7 D (12.0-16.0) g/dl Hct 38.3 D (37.0-47.0) % Plt Count 173 (160-400) X10*3/uL BMP 04/03/25 06:27 Sodium 139 Potassium 4.4 Chloride 98 Carbon Dioxide 27 BUN 50 H Creatinine 10.06 H* Calcium 9.0 Liver Function 04/03/25 Range/Units 06:27 Total Bilirubin 0.7 (0.0-1.0) mg/dL Direct Bilirubin 0.3 (0.0-0.5) mg/dL AST 17 (5-31) U/L ALT 6 (0-31) U/L Alkaline Phosphatase 71 (39-117) U/L Albumin 4.0 (3.5-5.0) g/dL All other labs normal. <Ankit Calhoun PA-C - Last Filed: 04/03/25 15:24> Assessment and Plan (1) Cholecystitis: Status: Acute <Ankit Calhoun PA-C - Last Filed: 04/03/25 15:24> 79 year old female with history of ERSD on HD (TTS), T2DM, HTN who presented with a week long history of worsening abdominal pain who developed nausea and vomiting last night. Found to have acute cholecystitis on CT and US. Evidence of thickened wall, distended gallbladder, cholelithiasis. No CBD dilation. Currently on IV Zosyn. We discussed options for treatment including cholecystectomy, discussed risks benefits alternatives. Patient agreeable to surgical intervention. We will need to optimize kidney function prior to surgery. Patient was supposed to have dialysis today. We will tentatively add her on for tomorrow for laparoscopic cholecystectomy possible open. Continue IV antibiotics NPO Recheck a.m. labs Continue ABX and NPO. Anticipate operative intervention tomrorow. <Ankit Calhoun PA-C - Last Filed: 04/03/25 15:24> 79 year old female with history of ERSD on HD (TTS), T2DM, HTN who presented with a week long history of worsening abdominal pain who developed nausea and vomiting last night. Found to have acute cholecystitis on CT and US. Continue ABX and NPO. Anticipate operative intervention tomrorow. <Jayce Chacon MD - Last Filed: 04/03/25 14:41> Total time managing care of this patient today: 30 minutes. <Jayce Chacon MD - Last Filed: 04/03/25 14:41> Procedures Date of Service Date of Service: 04/03/25 <Ankit Calhoun PA-C - Last Filed: 04/03/25 15:24> 04/03/25 <Jayce Chacon MD - Last Filed: 04/03/25 14:41>
--- NOTE | 2025-04-03 13:35 | PC.NURSE ---
Patient away for dialysis at this time. extract operator (Sapphire Younger) aware.
--- NOTE | 2025-04-03 13:48 | PC.NURSE ---
Report given to Renetta [facility] (see admission worksheet). Admitting to room 345 after dialysis is complete.
--- NOTE | 2025-04-03 16:25 | PHA.MEDREC ---
Addendum entered by Derrick TroncosoD 04/03/25 16:28: reviewed Original Note: Pharmacy Consult ? Medication Reconciliation Pharmacy has completed the medication reconciliation. Utilized list from [facility].
[2025-04-03] MEDS: 0.9 % Sodium Chloride Flush 3 ML SYRINGE IVFLUSH ×2 (16:30→20:35)
[2025-04-03 18:37] LABS: Glucose, Whole Blood 140 mg/dL (60-115)
[2025-04-03 20:00] VITALS: BP 127/62; PULSE 95; RESP 18; TEMP 36.6; O2SAT 98
[2025-04-03 20:06] LABS: Glucose, Whole Blood 121 mg/dL (60-115)
[2025-04-04] VITALS (12 sets, daily range): BP systolic 107–165; BP diastolic 53–74; PULSE 84–104; RESP 13–18; TEMP 36.3–36.6; O2SAT 94–100
[2025-04-04 06:05] LABS: Hematocrit 36.6 % (37.0-47.0); Hemoglobin 11.8 g/dl (12.0-16.0); Imm Gran Abs Auto 0.01 X10*3/uL (0.00-0.03); Imm Gran Pct Auto 0.3 % (0.0-0.4); Lymphocytes Absolute Auto 1.0 X10*3/uL (1.2-4.9); MANUAL DIFF FLAG SCAN; Mean Corpuscular HGB Conc 32.2 g/dl (31.0-35.0); Mean Corpuscular Hemoglobin 29.5 pg (27.0-33.0); Mean Corpuscular Volume 91.5 fL (80.0-98.0); NRBC Abs Auto 0.000 X10*3/uL (0.0-0.012); NRBC Pct Auto 0.0 /100WBC (0.0-0.2); PLT CLUMP 1; Red Blood Count 4.00 X10*6/uL (4.20-5.50); SCAN SMEAR FLAG 1
[2025-04-04 06:30] LABS: Platelet Count 144 X10*3/uL (160-400); White Blood Count 3.4 X10*3/uL (4.8-10.8)
[2025-04-04 06:56] LABS: Anion Gap 17 (12-20); Blood Urea Nitrogen 28 mg/dL (9-16); Calcium 8.5 mg/dL (8.4-10.2); Carbon Dioxide 28 mmol/L (22-29); Chloride 100 mmol/L (96-108); Creatinine Clr Calc Pharmacy 6.6; Estimated Glomerular Filt Rate 5; Potassium 4.7 mmol/L (3.3-5.1); Sodium 140 mmol/L (135-145)
[2025-04-04 07:36] LABS: Glucose, Whole Blood 136 mg/dL (60-115)
--- NOTE | 2025-04-04 08:05 | HO.ANESPROP2 ---
Documented by User: Kendal Preston NP 04/04/25 08:35 HPI - Anesthesia Eval Consult details Narrative: 79 yr old female for lap cholecystectomy, possible open ESRD on hemodialysis , Mon; last dialysis was 04/03/25. +Tobacco use Jan 2025 [facility] [place] summary stated: Patient was admitted for sepsis due to possible urinary tract infection and possible pneumonia with rhino/entrovirus. Was treated with ceftriaxone azithromycin, underwent MRCP to rule out cholangitis which was negative. Urine and blood cultures were negative. Sepsis resolved and patient will be discharged on 3 more days of cefuroxime and azithromycin(repeat chest imaging in 3-4 weeks to see resolution of pneumonia) . *At bedside eval, pt breathing well, no coughing at all. JOSH: not using CPAP Anesthesia Pre-Procedure Meds Is the patient on any of the following meds?: GLP1/DPP4 PMFSH Active Problems Active Problems: All Active Problems Cholecystitis (Acute) Chronic kidney disease with end stage renal failure on dialysis (Acute) Acute cholecystitis (Acute) Anemia (Acute) Abnormal CT of the abdomen (Acute) Pneumonia (Acute) UTI (urinary tract infection) (Acute) Sepsis (Acute) Tobacco use disorder (Acute) History of breast cancer (Acute) T2DM (type 2 diabetes mellitus) (Acute) HLD (hyperlipidemia) (Acute) HTN (hypertension) (Acute) ESRD (end stage renal disease) on dialysis (Acute) Abnormal urinalysis (Acute) Weakness (Acute) Fever (Acute) Past Medical History Medical History Tobacco use disorder History of breast cancer ESRD (end stage renal disease) on dialysis T2DM (type 2 diabetes mellitus) HLD (hyperlipidemia) HTN (hypertension) Family History Family history of problems with anesthesia: No Surgical History History of Problems with Anesthesia: No Social History Social History Household Members: Children Housing: Prison Housing Other:: short term rehab Are you a primary care information associate to a significant other at home: No Do you presently have visiting nurse or other home services: No Patient Tobacco Use Status: Current someday Tobacco user Tobacco use type: Cigarette Smoked in Last 30 Days: Yes Patient Interested in Nicotine Replacement: No Patient Given Instructions on How to Stop Smoking: No (refused) Second Hand Smoke Exposure: No Use of substances other than those prescribed or required for medical reasons: No Currently Displaying Signs/Symptoms of Drug Intoxication Withdrawal: No Have you been hit, kicked, punched, or otherwise hurt by someone within the past year? If so, by whom?: No Do you feel safe in your current relationship?: No Is there a partner from a previous relationship who is making you feel unsafe now?: No Are you made to feel afraid or neglected: No Are you DNR?: No Advance Directives: Yes Advance Directives Information Provided: No Advance Directives on File: Yes Advance Directives Date on File: 01/28/25 Do you have a plan to hurt others: No Plan Recently lost weight without trying: Unsure Eating poorly because of decreased appetite: No Nutrition Risks: No Nutritional Risk Patient : No : No Poor oral hygiene: No service: No Meds Allergies Allergy/AdvReac Type Severity Reaction Status Date / Time No Known Allergies Allergy Verified 04/03/25 05:55 Active Medications: Current Medications Acetaminophen (Acetaminophen 325 Mg Tablet) 650 mg PO Q6H PRN PRN Reason: Pain, Mild 1-3,fever,headache Atorvastatin Calcium (Atorvastatin Calcium 20 Mg Tablet) 20 mg PO DAILY [place] Bisacodyl (Bisacodyl 10 Mg Supp.Rect) 10 mg AL DAILY PRN PRN Reason: Constipation Dextrose (Dextrose 50 % 25 Gm/50 Ml Syringe) 25 gm IVPUSH Q15M PRN; Protocol PRN Reason: per Hypoglycemia Standing Ord. Famotidine (Famotidine 20 Mg Tablet) 20 mg PO BEDTIME [facility] Last Admin: 04/03/25 20:31 Dose: 20 mg Gabapentin (Gabapentin 100 Mg Capsule) 100 mg PO BID [facility] Last Admin: 04/03/25 20:31 Dose: 100 mg Glucose (Glucose Gel 15 Gm Gel..Gram.) 15 gm PO Q15M PRN; Protocol PRN Reason: per Hypoglycemia Standing Ord. Heparin Sodium (Porcine) (Heparin Sodium,Porcine 5,000 Unit/Ml Vial) 5,000 unit SUBCUT Q12H [facility] Last Admin: 04/04/25 00:01 Dose: 5,000 unit Piperacillin Sod/Tazobactam (Sod 4.5 gm/ Sodium Chloride) 100 mls @ 200 mls/hr IV Q12H [facility] Last Infusion: 04/04/25 00:29 Dose: Infused Insulin Human Lispro (Insulin Lispro 100 Unit/Ml 3 Ml Vial) 0 unit SUBCUT QIDACHS [facility]; Protocol Last Admin: 04/04/25 07:37 Dose: Not Given Magnesium Hydroxide (Milk Of Magnesia 30 Ml Oral.Susp) 30 ml PO DAILY PRN PRN Reason: Constipation Meclizine HCl (Meclizine Hcl 12.5 Mg Tablet) 12.5 mg PO Q6H PRN PRN Reason: Dizziness Melatonin (Melatonin 3 Mg Tablet) 6 mg PO BEDTIME PRN PRN Reason: Insomnia Morphine Sulfate (Morphine Sulfate 4 Mg/Ml Cartridge) 2 mg IVPUSH Q4H PRN; Protocol PRN Reason: Pain, Severe (Pain Scale 7-10) Ondansetron HCl (Ondansetron Hcl 4 Mg/2 Ml Vial) 4 mg IVPUSH Q8H PRN PRN Reason: Nausea and Vomiting Sevelamer Carbonate (Sevelamer Carbonate Powder 800 Mg Powd.Pack) 2,000 mg PO TIDWM [facility] Sodium Chloride (0.9 % Sodium Chloride Flush 3 Ml Syringe) [facility] Last Admin: 04/03/25 20:35 Dose: 3 ml Home Medications ?Medication ?Instructions ?Recorded ?Confirmed ?Last Taken ?Type aspirin 81 mg chewable tablet 81 mg PO DAILY 01/23/25 04/03/25 01/22/25 History atorvastatin 20 mg tablet 20 mg PO DAILY 01/23/25 04/03/25 01/22/25 History clopidogrel 75 mg tablet 75 mg PO DAILY 01/23/25 04/03/25 01/22/25 History dulaglutide 4.5 mg/0.5 mL 4.5 mg subcut QWEEK 01/23/25 04/03/25 2 Weeks Ago History [facility] famotidine 20 mg tablet 20 mg PO BEDTIME 01/23/25 04/03/25 01/22/25 History gabapentin 100 mg capsule 100 mg PO BID 01/23/25 04/03/25 01/22/25 History losartan 100 mg tablet 100 mg PO DAILY 01/23/25 04/03/25 01/22/25 History sevelamer carbonate 2.4 gram oral 2 g PO TIDWM 01/23/25 04/03/25 01/22/25 History powder packet acetaminophen 325 mg tablet 650 mg PO Q4H PRN Pain/Fever 04/03/25 04/03/25 Unknown History acetaminophen 650 mg rectal 650 mg AL Q4H PRN Pain/Fever 04/03/25 04/03/25 Unknown History suppository bisacodyl 10 mg rectal suppository 10 mg AL DAILY PRN Constipation 04/03/25 04/03/25 Unknown History glucagon 1 mg solution for 1 mg subcut Q20M PRN BS less then 04/03/25 04/03/25 Unknown History injection 70 insulin lispro 100 unit/mL 1 sliding scale dose subcut QIDACHS 04/03/25 04/03/25 Unknown History subcutaneous solution (Humalog U-100 Insulin) magnesium hydroxide 400 mg/5 mL 5 ml PO DAILY PRN Constipation 04/03/25 04/03/25 Unknown History oral suspension (Milk of Magnesia) meclizine 12.5 mg tablet 12.5 mg PO Q6H PRN Dizziness 04/03/25 04/03/25 Unknown History naloxone 4 mg/actuation nasal 4 mg intranasal Q3M PRN Opioid 04/03/25 04/03/25 Unknown History spray (Narcan) Overdose polyethylene glycol 3350 17 17 g PO DAILY Constipation 04/03/25 04/03/25 Unknown History gram/dose oral powder (Miralax) sodium phosphates 19 gram-7 118 ml AL DAILY PRN Constipation 04/03/25 04/03/25 Unknown History gram/118 mL enema (Fleet Enema) Exam Height,Weight and Vital Signs: Height 5 ft 4 in Weight 90.718 kg Last Vital Signs Temp 97.3 F 04/04/25 07:46 Pulse 84 04/04/25 07:46 Resp 13 04/04/25 07:46 BP 124/60 04/04/25 07:46 Pulse Ox 100 04/04/25 07:46 O2 Del Method Room Air 04/04/25 07:46 Pertinent Lab Results Pertinent Lab Results: Laboratory Tests 04/03/25 04/03/25 04/03/25 06:27 11:10 18:32 WBC 4.2 L RBC 4.22 D Hgb 12.7 D Hct 38.3 D MCV 90.8 MCH 30.1 MCHC 33.2 RDW 14.5 Plt Count 173 MPV 9.8 Immature Gran % (Auto) 0.5 H Neut % (Auto) 72.1 Lymph % (Auto) 15.6 L Sanders % (Auto) 9.4 Eos % (Auto) 1.9 Baso % (Auto) 0.5 Lymph # (Auto) 0.7 L Sanders # (Auto) 0.4 Eos # (Auto) 0.1 Baso # (Auto) 0.0 Abs Immat Gran (auto) 0.02 Absolute Neuts (auto) 3.1 Absolute Nucleated RBC 0.000 Nucleated RBC % (auto) 0.0 Smear Tech's Comments Sodium 139 Potassium 4.4 Chloride 98 Carbon Dioxide 27 Anion Gap 18 BUN 50 H Creatinine 10.06 H* Estim Creat Clear Calc 4.9 Estimated GFR 4 POC Glucose 140 H Random Glucose 240 H Lactic Acid 1.4 Calcium 9.0 Magnesium 2.1 Total Bilirubin 0.7 Direct Bilirubin 0.3 AST 17 ALT 6 Alkaline Phosphatase 71 Troponin I High Sens 11.1 C-Reactive Protein 0.25 Total Protein 7.3 Albumin 4.0 Lipase 57 Influenza Type A (PCR) NEGATIVE Influenza Type B (PCR) NEGATIVE RSV RNA Qual (PCR) NEGATIVE SARS-CoV-2 RNA (RT-PCR) NEGATIVE 04/03/25 04/04/25 04/04/25 19:32 05:46 07:17 WBC 3.4 L RBC 4.00 L Hgb 11.8 L Hct 36.6 L MCV 91.5 MCH 29.5 MCHC 32.2 RDW 14.6 Plt Count 144 L MPV 10.2 Immature Gran % (Auto) 0.3 Neut % (Auto) 47.6 Lymph % (Auto) 29.4 Sanders % (Auto) 15.6 H Eos % (Auto) 6.2 H Baso % (Auto) 0.9 Lymph # (Auto) 1.0 L Sanders # (Auto) 0.5 Eos # (Auto) 0.2 Baso # (Auto) 0.0 Abs Immat Gran (auto) 0.01 Absolute Neuts (auto) 1.6 L Absolute Nucleated RBC 0.000 Nucleated RBC % (auto) 0.0 Smear Tech's Comments VERIFIED Sodium 140 Potassium 4.7 Chloride 100 Carbon Dioxide 28 Anion Gap 17 BUN 28 H Creatinine 7.50 H* Estim Creat Clear Calc 6.6 Estimated GFR 5 POC Glucose 121 H 136 H Random Glucose 128 H Lactic Acid Calcium 8.5 Magnesium Total Bilirubin Direct Bilirubin AST ALT Alkaline Phosphatase Troponin I High Sens C-Reactive Protein Total Protein Albumin Lipase Influenza Type A (PCR) Influenza Type B (PCR) RSV RNA Qual (PCR) SARS-CoV-2 RNA (RT-PCR) Narrative Narrative: EKG 04/03/25 Vent. Rate : 106 BPM Atrial Rate : 106 BPM P-R Int : 182 ms QRS Dur : 88 ms QT Int : 348 ms P-R-T Axes : 71 -33 41 degrees QTcB Int : 462 ms Sinus tachycardia Left axis deviation Possible Anterior infarct , age undetermined Abnormal ECG When compared with ECG of 23-Jan-2025 00:37, Premature atrial complexes are no longer Present Airway Mallampati Class: IV TM Dist: >3cm Neck ROM: Limited Loose/Missing/Broken Teeth: Yes, Upper and Lower Assessment and Plan Final Anesthetic Review Family History of Problems with Anesthesia: No History of Problems with Anesthesia: No Documented by User: Terrance Liu MD 04/04/25 14:35 [facility] Past Medical History Medical History Tobacco use disorder History of breast cancer ESRD (end stage renal disease) on dialysis T2DM (type 2 diabetes mellitus) HLD (hyperlipidemia) HTN (hypertension) Social History Social History Household Members: Children Housing: Prison Housing Other:: short term rehab Are you a primary care information associate to a significant other at home: No Do you presently have visiting nurse or other home services: No Patient Tobacco Use Status: Current someday Tobacco user Tobacco use type: Cigarette Smoked in Last 30 Days: Yes Patient Interested in Nicotine Replacement: No Patient Given Instructions on How to Stop Smoking: No (refused) Second Hand Smoke Exposure: No Use of substances other than those prescribed or required for medical reasons: No Currently Displaying Signs/Symptoms of Drug Intoxication Withdrawal: No Have you been hit, kicked, punched, or otherwise hurt by someone within the past year? If so, by whom?: No Do you feel safe in your current relationship?: No Is there a partner from a previous relationship who is making you feel unsafe now?: No Are you made to feel afraid or neglected: No Are you DNR?: No Advance Directives: Yes Advance Directives Information Provided: No Advance Directives on File: Yes Advance Directives Date on File: 01/28/25 Do you have a plan to hurt others: No Plan Recently lost weight without trying: Unsure Eating poorly because of decreased appetite: No Nutrition Risks: No Nutritional Risk Patient : No : No Poor oral hygiene: No service: No Meds Allergies Allergy/AdvReac Type Severity Reaction Status Date / Time No Known Allergies Allergy Verified 04/03/25 05:55 Home Medications ?Medication ?Instructions ?Recorded ?Confirmed ?Last Taken ?Type aspirin 81 mg chewable tablet 81 mg PO DAILY 01/23/25 04/03/25 01/22/25 History atorvastatin 20 mg tablet 20 mg PO DAILY 01/23/25 04/03/25 01/22/25 History clopidogrel 75 mg tablet 75 mg PO DAILY 01/23/25 04/03/25 01/22/25 History dulaglutide 4.5 mg/0.5 mL 4.5 mg subcut QWEEK 01/23/25 04/03/25 2 Weeks Ago History subcutaneous pen injector ~01/09/25 ([facility]) famotidine 20 mg tablet 20 mg PO BEDTIME 01/23/25 04/03/25 01/22/25 History gabapentin 100 mg capsule 100 mg PO BID 01/23/25 04/03/25 01/22/25 History losartan 100 mg tablet 100 mg PO DAILY 01/23/25 04/03/25 01/22/25 History sevelamer carbonate 2.4 gram oral 2 g PO TIDWM 01/23/25 04/03/25 01/22/25 History powder packet acetaminophen 325 mg tablet 650 mg PO Q4H PRN Pain/Fever 04/03/25 04/03/25 Unknown History acetaminophen 650 mg rectal 650 mg AL Q4H PRN Pain/Fever 04/03/25 04/03/25 Unknown History suppository bisacodyl 10 mg rectal suppository 10 mg AL DAILY PRN Constipation 04/03/25 04/03/25 Unknown History glucagon 1 mg solution for 1 mg subcut Q20M PRN BS less then 04/03/25 04/03/25 Unknown History injection 70 insulin lispro 100 unit/mL 1 sliding scale dose subcut QIDACHS 04/03/25 04/03/25 Unknown History subcutaneous solution (Humalog U-100 Insulin) magnesium hydroxide 400 mg/5 mL 5 ml PO DAILY PRN Constipation 04/03/25 04/03/25 Unknown History oral suspension (Milk of Magnesia) meclizine 12.5 mg tablet 12.5 mg PO Q6H PRN Dizziness 04/03/25 04/03/25 Unknown History naloxone 4 mg/actuation nasal 4 mg intranasal Q3M PRN Opioid 04/03/25 04/03/25 Unknown History spray (Narcan) Overdose polyethylene glycol 3350 17 17 g PO DAILY Constipation 04/03/25 04/03/25 Unknown History gram/dose oral powder (Miralax) sodium phosphates 19 gram-7 118 ml AL DAILY PRN Constipation 04/03/25 04/03/25 Unknown History gram/118 mL enema (Fleet Enema) Exam Airway Heart: ok Lungs: ok Assessment and Plan Assessment Anesthesia Assessment: Anesthesia Plan Discussed and Chart Reviewed Final Anesthetic Review NPO: Yes ASA Class: IV Final Preanesthetic Review: No Changes in Pt Med Stat, Meds/Allgs Chart Reviewed, Consent Obtained/Reviewed and Anes Risks/Benef Reviewed Patient Risk: High Procedure Risk: Intermediate Anesthetic Plan Anesthetic Plan: GA and Agree w/ Assess. and Plan Disposition: Standard PACU
--- NOTE | 2025-04-04 08:23 | PM.PNGS ---
Subjective Subjective Date of Service: 04/04/25 Interval history: complaining of some pain in the RUQ, denies nause or vomiting. Had dialysis yesterday Physical Exam Vital Signs: Vital Signs: Last Vital Signs Temp 97.3 F 04/04/25 07:46 Pulse 84 04/04/25 07:46 Resp 13 04/04/25 07:46 BP 124/60 04/04/25 07:46 Pulse Ox 100 04/04/25 07:46 O2 Del Method Room Air 04/04/25 07:46 BMI result Body Mass Index 34.3 Const: General: comfortable and no acute distress Orientation/consciousness: patient oriented x3 Resp: Effort & Inspection: normal respiratory effort and able to speak in complete sentences GI: Inspection: No distended Palpation (GI): Soft to palpation and Tenderness to palpation present (GI) in the RUQ and Pelayo's sign positive Neuro: General: patient oriented x3 Objective Data Active Medications Acetaminophen (Acetaminophen 325 Mg Tablet) 650 mg PO Q6H PRN PRN Reason: Pain, Mild 1-3,fever,headache Atorvastatin Calcium (Atorvastatin Calcium 20 Mg Tablet) 20 mg PO DAILY [facility] Bisacodyl (Bisacodyl 10 Mg Supp.Rect) 10 mg ME DAILY PRN PRN Reason: Constipation Dextrose (Dextrose 50 % 25 Gm/50 Ml Syringe) 25 gm IVPUSH Q15M PRN; Protocol PRN Reason: per Hypoglycemia Standing Ord. Famotidine (Famotidine 20 Mg Tablet) 20 mg PO BEDTIME [facility] Last Admin: 04/03/25 20:31 Dose: 20 mg Documented By: LILIANA Gabapentin (Gabapentin 100 Mg Capsule) 100 mg PO BID [facility] Last Admin: 04/03/25 20:31 Dose: 100 mg Documented By: LILIANA Glucose (Glucose Gel 15 Gm Gel..Gram.) 15 gm PO Q15M PRN; Protocol PRN Reason: per Hypoglycemia Standing Ord. Heparin Sodium (Porcine) (Heparin Sodium,Porcine 5,000 Unit/Ml Vial) 5,000 unit SUBCUT Q12H [facility] Last Admin: 04/04/25 00:01 Dose: 5,000 unit Documented By: LILIANA Piperacillin Sod/Tazobactam (Sod 4.5 gm/ Sodium Chloride) 100 mls @ 200 mls/hr IV Q12H [facility] Last Infusion: 04/04/25 00:29 Dose: Infused Documented By: LILIANA Insulin Human Lispro (Insulin Lispro 100 Unit/Ml 3 Ml Vial) 0 unit SUBCUT QIDACHSendy [facility]; Protocol Last Admin: 04/04/25 07:37 Dose: Not Given Documented By: TALYA Non-Admin Reason: No Insulin Coverage Magnesium Hydroxide (Milk Of Magnesia 30 Ml Oral.Susp) 30 ml PO DAILY PRN PRN Reason: Constipation Meclizine HCl (Meclizine Hcl 12.5 Mg Tablet) 12.5 mg PO Q6H PRN PRN Reason: Dizziness Melatonin (Melatonin 3 Mg Tablet) 6 mg PO BEDTIME PRN PRN Reason: Insomnia Morphine Sulfate (Morphine Sulfate 4 Mg/Ml Cartridge) 2 mg IVPUSH Q4H PRN; Protocol PRN Reason: Pain, Severe (Pain Scale 7-10) Ondansetron HCl (Ondansetron Hcl 4 Mg/2 Ml Vial) 4 mg IVPUSH Q8H PRN PRN Reason: Nausea and Vomiting Sevelamer Carbonate (Sevelamer Carbonate Powder 800 Mg Powd.Pack) 2,000 mg PO TIDWM [facility] Sodium Chloride (0.9 % Sodium Chloride Flush 3 Ml Syringe) [facility] Last Admin: 04/03/25 20:35 Dose: 3 ml Documented By: LILIANA Labs 04/04/25 05:46 04/04/25 05:46 Labs: Laboratory Results - last 24 hr 04/03/25 04/03/25 04/03/25 11:10 18:32 19:32 MCV MCH MCHC RDW Plt Count MPV Immature Gran % (Auto) Neut % (Auto) Lymph % (Auto) Jenkins % (Auto) Eos % (Auto) Baso % (Auto) Lymph # (Auto) Jenkins # (Auto) Eos # (Auto) Baso # (Auto) Abs Immat Gran (auto) Absolute Neuts (auto) Absolute Nucleated RBC Nucleated RBC % (auto) Smear Tech's Comments Anion Gap Estim Creat Clear Calc Estimated GFR POC Glucose 140 H 121 H Random Glucose Lactic Acid 1.4 Calcium 04/04/25 04/04/25 05:46 07:17 MCV 91.5 MCH 29.5 MCHC 32.2 RDW 14.6 Plt Count 144 L MPV 10.2 Immature Gran % (Auto) 0.3 Neut % (Auto) 47.6 Lymph % (Auto) 29.4 Jenkins % (Auto) 15.6 H Eos % (Auto) 6.2 H Baso % (Auto) 0.9 Lymph # (Auto) 1.0 L Jenkins # (Auto) 0.5 Eos # (Auto) 0.2 Baso # (Auto) 0.0 Abs Immat Gran (auto) 0.01 Absolute Neuts (auto) 1.6 L Absolute Nucleated RBC 0.000 Nucleated RBC % (auto) 0.0 Smear Tech's Comments VERIFIED Anion Gap 17 Estim Creat Clear Calc 6.6 Estimated GFR 5 POC Glucose 136 H Random Glucose 128 H Lactic Acid Calcium 8.5 Procedures Date of Service Date of Service: 04/04/25 Progress Note: A&P Assessment and plan (1) Cholecystitis: Status: Acute Plan 79 year old female with 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 Continued RUQ pain. no nausea or vomtiing. She had dialysis yesterday, some improvement in creatinine, though to note it was partiallly hemolyzed. abdomen is soft, tender in the RUQ. Plan to proceed with surgery this afternoon, pt has been added on to the OR schedule. Patient understands and agreeable to plan. Risks and benefits of procedure discussed again with the patient. continue IV abx IV fluids lap iman poss open NPO Time Spent With Patient Time: Total time managing care of this patient today ____ minutes. Quality Stroke Does the patient have a stroke diagnosis?: No VTE Prior VTE?: No VTE Risk Level:: Medical - moderate - high VTE Device Contraindication: N/A - Device Ordered VTE Drug Contraindication: N/A - Med Ordered
--- NOTE | 2025-04-04 09:04 | HO.PM.IMPN ---
Subjective Subjective Date of Service: 04/04/25 Interval History: ruq pain Physical Exam Vital Signs: Vital Signs: Last Vital Signs Temp 97.3 F 04/04/25 07:46 Pulse 84 04/04/25 07:46 Resp 13 04/04/25 07:46 BP 124/60 04/04/25 07:46 Pulse Ox 100 04/04/25 07:46 O2 Del Method Room Air 04/04/25 07:46 BMI result Body Mass Index 34.3 Const: General: comfortable and no acute distress Orientation/consciousness: patient oriented x3 Resp: Effort & Inspection: normal respiratory effort and able to speak in complete sentences GI: Inspection: No distended Palpation (GI): Soft to palpation and Tenderness to palpation present (GI) in the RUQ and Pelayo's sign positive Neuro: General: patient oriented x3 Objective Data Active Medications Acetaminophen (Acetaminophen 325 Mg Tablet) 650 mg PO Q6H PRN PRN Reason: Pain, Mild 1-3,fever,headache Atorvastatin Calcium (Atorvastatin Calcium 20 Mg Tablet) 20 mg PO DAILY [facility] Bisacodyl (Bisacodyl 10 Mg Supp.Rect) 10 mg PA DAILY PRN PRN Reason: Constipation Dextrose (Dextrose 50 % 25 Gm/50 Ml Syringe) 25 gm IVPUSH Q15M PRN; Protocol PRN Reason: per Hypoglycemia Standing Ord. Famotidine (Famotidine 20 Mg Tablet) 20 mg PO BEDTIME [facility] Last Admin: 04/03/25 20:31 Dose: 20 mg Documented By: LILIANA Gabapentin (Gabapentin 100 Mg Capsule) 100 mg PO BID [facility] Last Admin: 04/03/25 20:31 Dose: 100 mg Documented By: LILIANA Glucose (Glucose Gel 15 Gm Gel..Gram.) 15 gm PO Q15M PRN; Protocol PRN Reason: per Hypoglycemia Standing Ord. Heparin Sodium (Porcine) (Heparin Sodium,Porcine 5,000 Unit/Ml Vial) 5,000 unit SUBCUT Q12H [facility] Last Admin: 04/04/25 00:01 Dose: 5,000 unit Documented By: LILIANA Piperacillin Sod/Tazobactam (Sod 4.5 gm/ Sodium Chloride) 100 mls @ 200 mls/hr IV Q12H [facility] Last Infusion: 04/04/25 00:29 Dose: Infused Documented By: LILIANA Insulin Human Lispro (Insulin Lispro 100 Unit/Ml 3 Ml Vial) 0 unit SUBCUT QIDACHS [facility]; Protocol Last Admin: 04/04/25 07:37 Dose: Not Given Documented By: TALYA Non-Admin Reason: No Insulin Coverage Magnesium Hydroxide (Milk Of Magnesia 30 Ml Oral.Susp) 30 ml PO DAILY PRN PRN Reason: Constipation Meclizine HCl (Meclizine Hcl 12.5 Mg Tablet) 12.5 mg PO Q6H PRN PRN Reason: Dizziness Melatonin (Melatonin 3 Mg Tablet) 6 mg PO BEDTIME PRN PRN Reason: Insomnia Morphine Sulfate (Morphine Sulfate 4 Mg/Ml Cartridge) 2 mg IVPUSH Q4H PRN; Protocol PRN Reason: Pain, Severe (Pain Scale 7-10) Ondansetron HCl (Ondansetron Hcl 4 Mg/2 Ml Vial) 4 mg IVPUSH Q8H PRN PRN Reason: Nausea and Vomiting Sevelamer Carbonate (Sevelamer Carbonate Powder 800 Mg Powd.Pack) 2,000 mg PO TIDWM [facility] Sodium Chloride (0.9 % Sodium Chloride Flush 3 Ml Syringe) 3 ml IVFLUSH [facility] Last Admin: 04/03/25 20:35 Dose: 3 ml Documented By: DAVONLANDV Labs 04/04/25 05:46 04/04/25 05:46 Labs: Laboratory Results - last 24 hr 04/03/25 04/03/25 04/03/25 11:10 18:32 19:32 MCV MCH MCHC RDW Plt Count MPV Immature Gran % (Auto) Neut % (Auto) Lymph % (Auto) [place] % (Auto) Eos % (Auto) Baso % (Auto) Lymph # (Auto) [place] # (Auto) Eos # (Auto) Baso # (Auto) Abs Immat Gran (auto) Absolute Neuts (auto) Absolute Nucleated RBC Nucleated RBC % (auto) Smear Tech's Comments Anion Gap Estim Creat Clear Calc Estimated GFR POC Glucose 140 H 121 H Random Glucose Lactic Acid 1.4 Calcium 04/04/25 04/04/25 05:46 07:17 MCV 91.5 MCH 29.5 MCHC 32.2 RDW 14.6 Plt Count 144 L MPV 10.2 Immature Gran % (Auto) 0.3 Neut % (Auto) 47.6 Lymph % (Auto) 29.4 [place] % (Auto) 15.6 H Eos % (Auto) 6.2 H Baso % (Auto) 0.9 Lymph # (Auto) 1.0 L [place] # (Auto) 0.5 Eos # (Auto) 0.2 Baso # (Auto) 0.0 Abs Immat Gran (auto) 0.01 Absolute Neuts (auto) 1.6 L Absolute Nucleated RBC 0.000 Nucleated RBC % (auto) 0.0 Smear Tech's Comments VERIFIED Anion Gap 17 Estim Creat Clear Calc 6.6 Estimated GFR 5 POC Glucose 136 H Random Glucose 128 H Lactic Acid Calcium 8.5 Assessment and Plan (1) Acute cholecystitis: Status: Acute Plan 79F PMH ESRD on HD, DM, history of breast CA, HTN, HLD presented with RUQ abd pain, found to have acute cholecystitis Acute cholecystitis Continue IV Zosyn, plan for surgery today End-stage renal disease On hemodialysis, continue phosphate binders Diabetes Insulin sliding scale Hypertension Low normal blood pressures, hold losartan DVT prophylaxis with heparin subQ Full code reason for continued hospitalization: Plan for surgery Quality Stroke Does the patient have a stroke diagnosis?: No VTE Prior VTE?: No VTE Risk Level:: Medical - moderate - high VTE Device Contraindication: N/A - Device Ordered VTE Drug Contraindication: N/A - Med Ordered
--- NOTE | 2025-04-04 09:24 | MHC.CLN ---
NUTRITION PATIENT WITH ESRD ON HEMODIALYSIS. RECOMMEND THERAPEUTIC DIET WHEN ABLE TO ADVANCE DIET. DIABETIC 1800 KCAL, 2 GRAM SODIUM. CONSIDER LOW POTASSIUM, LOW PHOSPHORUS NEEDED.
--- NOTE | 2025-04-04 09:24 | PC.NURSE ---
Report given to [facility] nurse Jovita
[2025-04-04] MEDS: 0.9 % Sodium Chloride Flush 3 ML SYRINGE IVFLUSH ×2 (09:30→20:49)
--- NOTE | 2025-04-04 10:58 | PM.CNNEP ---
History of Present Illness Reason for Consult Consult date: 04/04/25 Chief Complaint Chief complaint: acute cholecystitis History of Present Illness Narrative: 29-year-old lady with PMH of hypertension, diabetes mellitus, ESRD on HD TTS ([facility], meal room hand is Dr Guillory) admitted with abdominal pain with imaging concerning for acute cholecystitis. Has left upper extremity AV fistula as an dialysis access, her last HD was on Monday, got dialyzed here yesterday. Review of Systems Review of Systems Const : no body aches, no chills, + fatigue Eyes: no blurry vision and no change in vision ENT: no bleeding gums and no change in voice, no dizziness Card: no chest pain, no shortness of breath, no orthopnea, no PND Resp: no cough, no excessive phlegm production, no SOB GI: + abdominal pain and no nausea, no vomiting : no hematuria, no urinary frequency and no difficulty voiding Musc: no abnormal gait, no bone pain Neuro: no abnormal movements, no weakness, no dizziness, no abnormal gait and no behavioral changes Psych: no behavioral changes and no change in appetite Endo: no change in body appearance, no cold intolerance, no excessive sweating and no fatigue PMFSH Past Medical History Medical History Tobacco use disorder History of breast cancer ESRD (end stage renal disease) on dialysis T2DM (type 2 diabetes mellitus) HLD (hyperlipidemia) HTN (hypertension) Social History Social History Household Members: Children Housing: Correction Housing Other:: short term rehab Are you a primary field care advocate to a significant other at home: No Do you presently have visiting nurse or other home services: No Patient Tobacco Use Status: Current someday Tobacco user Tobacco use type: Cigarette Smoked in Last 30 Days: Yes Patient Interested in Nicotine Replacement: No Patient Given Instructions on How to Stop Smoking: No (refused) Second Hand Smoke Exposure: No Use of substances other than those prescribed or required for medical reasons: No Currently Displaying Signs/Symptoms of Drug Intoxication Withdrawal: No Have you been hit, kicked, punched, or otherwise hurt by someone within the past year? If so, by whom?: No Do you feel safe in your current relationship?: No Is there a partner from a previous relationship who is making you feel unsafe now?: No Are you made to feel afraid or neglected: No Are you DNR?: No Advance Directives: Yes Advance Directives Information Provided: No Advance Directives on File: Yes Advance Directives Date on File: 01/28/25 Do you have a plan to hurt others: No Plan Recently lost weight without trying: Unsure Eating poorly because of decreased appetite: No Nutrition Risks: No Nutritional Risk Patient : No : No Poor oral hygiene: No service: No Meds Allergies Allergy/AdvReac Type Severity Reaction Status Date / Time No Known Allergies Allergy Verified 04/03/25 05:55 Active Medications: Current Medications Acetaminophen (Acetaminophen 325 Mg Tablet) 650 mg PO Q6H PRN PRN Reason: Pain, Mild 1-3,fever,headache Atorvastatin Calcium (Atorvastatin Calcium 20 Mg Tablet) 20 mg PO DAILY [facility] Last Admin: 04/04/25 09:28 Dose: 20 mg Bisacodyl (Bisacodyl 10 Mg Supp.Rect) 10 mg PA DAILY PRN PRN Reason: Constipation Dextrose (Dextrose 50 % 25 Gm/50 Ml Syringe) 25 gm IVPUSH Q15M PRN; Protocol PRN Reason: per Hypoglycemia Standing Ord. Famotidine (Famotidine 20 Mg Tablet) 20 mg PO BEDTIME [facility] Last Admin: 04/03/25 20:31 Dose: 20 mg Gabapentin (Gabapentin 100 Mg Capsule) 100 mg PO BID [facility] Last Admin: 04/04/25 09:28 Dose: 100 mg Glucose (Glucose Gel 15 Gm Gel..Gram.) 15 gm PO Q15M PRN; Protocol PRN Reason: per Hypoglycemia Standing Ord. Heparin Sodium (Porcine) (Heparin Sodium,Porcine 5,000 Unit/Ml Vial) 5,000 unit SUBCUT Q12H [facility] Last Admin: 04/04/25 00:01 Dose: 5,000 unit Piperacillin Sod/Tazobactam (Sod 4.5 gm/ Sodium Chloride) 100 mls @ 200 mls/hr IV Q12H [facility] Last Infusion: 04/04/25 00:29 Dose: Infused Insulin Human Lispro (Insulin Lispro 100 Unit/Ml 3 Ml Vial) 0 unit SUBCUT QIDACHS [facility]; Protocol Last Admin: 04/04/25 07:37 Dose: Not Given Magnesium Hydroxide (Milk Of Magnesia 30 Ml Oral.Susp) 30 ml PO DAILY PRN PRN Reason: Constipation Meclizine HCl (Meclizine Hcl 12.5 Mg Tablet) 12.5 mg PO Q6H PRN PRN Reason: Dizziness Melatonin (Melatonin 3 Mg Tablet) 6 mg PO BEDTIME PRN PRN Reason: Insomnia Morphine Sulfate (Morphine Sulfate 4 Mg/Ml Cartridge) 2 mg IVPUSH Q4H PRN; Protocol PRN Reason: Pain, Severe (Pain Scale 7-10) Ondansetron HCl (Ondansetron Hcl 4 Mg/2 Ml Vial) 4 mg IVPUSH Q8H PRN PRN Reason: Nausea and Vomiting Sevelamer Carbonate (Sevelamer Carbonate Powder 800 Mg Powd.Pack) 2,000 mg PO TIDWM [facility] Last Admin: 04/04/25 09:29 Dose: Not Given Sodium Chloride (0.9 % Sodium Chloride Flush 3 Ml Syringe) 3 ml IVFLUSH QSHIFT [facility] Last Admin: 04/04/25 09:30 Dose: 3 ml Home Medications ?Medication ?Instructions ?Recorded ?Confirmed ?Last Taken ?Type aspirin 81 mg chewable tablet 81 mg PO DAILY 01/23/25 04/03/25 01/22/25 History atorvastatin 20 mg tablet 20 mg PO DAILY 01/23/25 04/03/25 01/22/25 History clopidogrel 75 mg tablet 75 mg PO DAILY 01/23/25 04/03/25 01/22/25 History dulaglutide 4.5 mg/0.5 mL 4.5 mg subcut QWEEK 01/23/25 04/03/25 2 Weeks Ago History subcutaneous pen injector ~01/09/25 ([facility]) famotidine 20 mg tablet 20 mg PO BEDTIME 01/23/25 04/03/25 01/22/25 History gabapentin 100 mg capsule 100 mg PO BID 01/23/25 04/03/25 01/22/25 History losartan 100 mg tablet 100 mg PO DAILY 01/23/25 04/03/25 01/22/25 History sevelamer carbonate 2.4 gram oral 2 g PO TIDWM 01/23/25 04/03/25 01/22/25 History powder packet acetaminophen 325 mg tablet 650 mg PO Q4H PRN Pain/Fever 04/03/25 04/03/25 Unknown History acetaminophen 650 mg rectal 650 mg PA Q4H PRN Pain/Fever 04/03/25 04/03/25 Unknown History suppository bisacodyl 10 mg rectal suppository 10 mg PA DAILY PRN Constipation 04/03/25 04/03/25 Unknown History glucagon 1 mg solution for 1 mg subcut Q20M PRN BS less then 04/03/25 04/03/25 Unknown History injection 70 insulin lispro 100 unit/mL 1 sliding scale dose subcut QIDACHS 04/03/25 04/03/25 Unknown History subcutaneous solution (Humalog U-100 Insulin) magnesium hydroxide 400 mg/5 mL 5 ml PO DAILY PRN Constipation 04/03/25 04/03/25 Unknown History oral suspension (Milk of Magnesia) meclizine 12.5 mg tablet 12.5 mg PO Q6H PRN Dizziness 04/03/25 04/03/25 Unknown History naloxone 4 mg/actuation nasal 4 mg intranasal Q3M PRN Opioid 04/03/25 04/03/25 Unknown History spray (Narcan) Overdose polyethylene glycol 3350 17 17 g PO DAILY Constipation 04/03/25 04/03/25 Unknown History gram/dose oral powder (Miralax) sodium phosphates 19 gram-7 118 ml PA DAILY PRN Constipation 04/03/25 04/03/25 Unknown History gram/118 mL enema (Fleet Enema) Physical Exam Vital Signs: Last Vital Signs Temp 97.3 F 04/04/25 07:46 Pulse 84 04/04/25 07:46 Resp 13 04/04/25 07:46 BP 124/60 04/04/25 07:46 Pulse Ox 100 04/04/25 07:46 O2 Del Method Room Air 04/04/25 07:46 BMI result Body Mass Index 34.3 General: not in any acute distress, ill appearing Nutritional Appearance: well nourished and overweight Eyes: appearance normal, both eyes and all related structures; Alignment and Position: alignment normal and position normal Neck: No lymphadenopathy, no thyromegaly Resp: bilateral air entry equal, no added sounds present Cardio: Regular rate, regular rhythm; Heart sounds: S1 normal heart sound present and S2 normal heart sound present GI: soft, nontender, no guarding, no hepatosplenomegaly : bladder normal to inspection, bladder normal to palpation, no renal angle tenderness Skin: no rashes or lesions noted and elasticity normal Neuro: alert, oriented x 3, moves all extremities Results Lab Results 04/04/25 05:46 04/04/25 05:46 Lab results: Chemistry 04/03/25 04/04/25 06:27 05:46 Sodium 139 140 Potassium 4.4 4.7 Carbon Dioxide 27 28 BUN 50 H 28 H Creatinine 10.06 H* 7.50 H* Calcium 9.0 8.5 Hematology 04/03/25 04/04/25 06:27 05:46 WBC 4.2 L 3.4 L Hgb 12.7 D 11.8 L Plt Count 173 144 L Assessment and Plan (1) HTN (hypertension): Status: Acute (2) ESRD (end stage renal disease) on dialysis: Status: Acute (3) Anemia: Status: Acute Plan 1. ESRD requiring maintenance HD HD schedule: TTS, last session:yesterday Access:Left upper extremity AV fistula Volume Status: euvolemic will continue TTS dialysis schedule 2. 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 Hypertension: Hold antihypertensives prior to HD on losartan at home, no antihypertensives in hospital Thanks for your consult, we will continue to follow up this patient along with you. Procedures Date of Service Date of Service: 04/04/25
--- NOTE | 2025-04-04 11:27 | MHC.CM.PN ---
Addendum entered by Selam Ovalle 04/04/25 12:37: Response from [facility] is that pt. is not a bed hold and they have declined her going back there. Addendum entered by Selam Ovalle 04/04/25 12:35: PCP is Kecia Lundy NP Original Note: IMM 04/04/25, pt. came to hosp. from [facility], She goes to , , Sa[facility] at [facility] in [place]. Her PCP is new to her in [place], she will let us know their name later, when her dtr lets her know. HCP is her dtr Deborah. For DME, pt. has a cane, walker and W/C. She came here by her dtr, she was uncertain if she will DC back to [facility], CM sent ref to the via care port. DCP: STR, CM to follow for DC needs.
[2025-04-04 11:45] LABS: Glucose, Whole Blood 134 mg/dL (60-115)
--- NOTE | 2025-04-04 14:06 | PC.NURSE ---
Patient taken off unit by OR staff.
[2025-04-04 14:23] LABS: Glucose, Whole Blood 105 mg/dL (60-115)
--- NOTE | 2025-04-04 15:04 | MHC.CM.PN ---
CM spoke with pt. about what her DCP will be, since [facility] is not accepting her back. CM let pt. 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 Pt. said that she does not know what the plan will be, she gave me permission to speak with her dtr, Deborah, call place, message left with Deborah to discuss DCP.
--- NOTE | 2025-04-04 15:48 | MHC.CM.PN ---
CM spoke with pt.'s dtr / HCP, Deborah, she explained that she is not able to take pt. to her home, 10 steps to get in. She feels pt. needs more rehab. Referral submitted for financial counselor to assist with Medicaid darby. Deborah said she does have access to pt.'s financial information. She said that pt. moved here from [place] after her .
--- NOTE | 2025-04-04 16:12 | W.PM.OPN ---
Operative Note Operative Note Date of Service: 04/04/25 Narrative: Status postoperative diagnosis cholecystitis Postoperative diagnosis cholecystitis Procedure performed laparoscopic cholecystectomy Surgeon Jayce Chacon MD Gasoline Tractor Operator JASON Cuenca Specimen gallbladder and contents Complications none Postoperative drains tubes and catheters none Disposition to the recovery room in good condition. The patient was brought to the operating room placed supine on the operating table. Her arms and legs were cushioned appropriately and Venodyne boots were placed on both lower extremities and compressions were begun. General endotracheal anesthesia was then initiated via Anesthesiology Service the patient's abdomen was then prepped and draped in standard sterile fashion. Once this was done approximately 20 cc of 0.25% Marcaine with epinephrine were infused in the skin and soft tissue in the infraumbilical region of the patient's abdomen. Through this locally anesthetized site a stab incision was created with a 11. Blade following Estela's lines of the skin. Dissection was carried down to the umbilical root which was grasped and elevated exposing the median raphe. Stab incision was gently created in the raphae and spread with this Schnidt clamp allowing access to the peritoneal cavity. 12 mm laparoscopic trocar port was placed and CO2 acids insufflated to create a pneumoperitoneum. Observation of the intra-abdominal contents revealed no evidence of injury from placement via the local anesthetic or laparoscopic trocar port. Patient had omental adhesions to the anterior abdominal wall in the lower midline just inferior to the port. No all a viscus was in the vicinity. Three more 5 mm ports were then placed in the sequential fashion via separate stab incisions. The 1st was in the right subcostal region of the 2nd was in the right periumbilical region and the 3rd was in the epigastrium. The patient was then placed in reverse Trendelenburg with her left side down. The apex of the gallbladder was grasped and elevated. It was edematous and there was some pericholecystic fluid. The gallbladder was decompressed using an 18 gauge Veress needle. It was productive of green bile. The drainage point was controlled with a 5 mm clip. We then used a two axis retraction technique to expose the region of the cystic duct and the cystic artery. Thick [place] adhesions were encountered. Careful dissection process enabled us to reveal the location and course of the cystic artery which was controlled with 5 mm clips. Two were placed on the patient's side and 1 was placed on the specimen side with division in between with endo Clyde. Similarly the cystic duct was also identified. It was skeletonized. Three 5 mm clips were placed on the patient's side and 1 was placed on the specimen side and division in between with endo Clyde. We then used electrocautery to excise the gallbladder from the surrounding soft tissue attachments to the underbelly of the liver. Once the gallbladder was completely free the gallbladder fossa was inspected. There was no evidence of hemorrhage or bile leakage and all the clips were visualized to be securely in place. The patient was returned supine. The right upper quadrant was copiously irrigated with saline and evacuated. Final laparoscopic surveillance revealed no evidence of hemorrhage or visceral injury. The gallbladder was placed in a retrieval bag and delivered out of the patient's abdomen and passed off the table as a specimen. The pneumoperitoneum was then completely released, the remaining trocar ports were discontinued without difficulty in the fascia underlying the umbilical port was closed using 0 Vicryl on a UR 6 needle. All the skin incisions were then closed with 4-0 Monocryl in a buried subcuticular fashion. Steri-Strips and sterile occlusive dressings were applied. The patient tolerated procedure well, was recovered from anesthesia and transported to the recovery room in good condition. It should be noted that the sponge instrument needle counts were correct at the end the case and then I directly supervised or performed all aspects of the case. I also discussed the details case with the patient's daughter afterward.
--- NOTE | 2025-04-04 16:59 | PC.NURSE ---
Patient returned to unit from OR with nasal cannula in place and 4 surgical incisions. Rony reporting she feels hungry.
--- NOTE | 2025-04-04 16:59 | W.PM.OPN ---
Operative Note Operative Note Date of Service: 04/14/25
[2025-04-04 17:10] LABS: Glucose, Whole Blood 130 mg/dL (60-115)
[2025-04-04 19:43] LABS: Glucose, Whole Blood 179 mg/dL (60-115)
[2025-04-05] MEDS: oxyCODONE HCl Immed Release 5 MG TABLET PO (02:47)
[2025-04-05 03:39] VITALS: BP 121/60; PULSE 95; RESP 18; TEMP 36.4; O2SAT 93
[2025-04-05 06:28] LABS: Hematocrit 34.8 % (37.0-47.0); Hemoglobin 11.4 g/dl (12.0-16.0); Mean Corpuscular HGB Conc 32.8 g/dl (31.0-35.0); Mean Corpuscular Hemoglobin 29.9 pg (27.0-33.0); Mean Corpuscular Volume 91.3 fL (80.0-98.0); NRBC Abs Auto 0.000 X10*3/uL (0.0-0.012); NRBC Pct Auto 0.0 /100WBC (0.0-0.2); Platelet Count 168 X10*3/uL (160-400); Red Blood Count 3.81 X10*6/uL (4.20-5.50); White Blood Count 5.6 X10*3/uL (4.8-10.8)
[2025-04-05 06:48] LABS: Alanine Aminotransferase 16 U/L (0-31); Albumin Level 3.4 g/dL (3.5-5.0); Alkaline Phosphatase 62 U/L (39-117); Anion Gap 18 (12-20); Aspartate Amino Transferase 27 U/L (5-31); Blood Urea Nitrogen 39 mg/dL (9-16); Calcium 8.4 mg/dL (8.4-10.2); Carbon Dioxide 29 mmol/L (22-29); Chloride 98 mmol/L (96-108); Creatinine Clr Calc Pharmacy 5.1; Estimated Glomerular Filt Rate 4; Magnesium 2.2 mg/dL (1.6-2.6); Potassium 4.5 mmol/L (3.3-5.1); Sodium 140 mmol/L (135-145); Total Protein 6.3 g/dL (6.5-8.0)
[2025-04-05 07:38] VITALS: BP 117/56; PULSE 97; RESP 16; TEMP 36.8; O2SAT 92
[2025-04-05 07:59] LABS: Glucose, Whole Blood 106 mg/dL (60-115)
--- NOTE | 2025-04-05 08:08 | P.PNIM_ITS ---
Subjective Subjective Date of Service: 04/05/25 Interval History: surgical site pain Physical Exam 2 Vital Signs: Vital Signs: Last Vital Signs Temp 98.2 F 04/05/25 07:38 Pulse 97 04/05/25 07:38 Resp 16 04/05/25 07:38 BP 117/56 L 04/05/25 07:38 Pulse Ox 92 04/05/25 07:38 O2 Del Method Room Air 04/05/25 07:38 O2 Flow Rate 2 04/04/25 17:52 BMI result Body Mass Index 34.3 Const: General: comfortable and no acute distress O rientation/consciousness: patient oriented x3 Resp: Effort & Inspection: normal respiratory effort and able to speak in complete sentences GI: Inspection: No distended Palpation (GI): Soft to palpation and Tenderness to palpation present (GI) in the RUQ and Pelayo's sign positive Neuro: General: patient oriented x3 Objective Data Active Medications Acetaminophen (Acetaminophen 325 Mg Tablet) 650 mg PO Q6H PRN PRN Reason: Pain, Mild 1-3,fever,headache Atorvastatin Calcium (Atorvastatin Calcium 20 Mg Tablet) 20 mg PO DAILY [facility] Last Admin: 04/04/25 09:28 Dose: 20 mg Documented By: COLBURPb Bisacodyl (Bisacodyl 10 Mg Supp.Rect) 10 mg [place] DAILY PRN PRN Reason: Constipation Dextrose (Dextrose 50 % 25 Gm/50 Ml Syringe) 25 gm IVPUSH Q15M PRN; Protocol PRN Reason: per Hypoglycemia Standing Ord. Famotidine (Famotidine 20 Mg Tablet) 20 mg PO BEDTIME [facility] Last Admin: 04/04/25 20:49 Dose: 20 mg Documented By: JOANN Gabapentin (Gabapentin 100 Mg Capsule) 100 mg PO BID [facility] Last Admin: 04/04/25 20:49 Dose: 100 mg Documented By: JOANN Glucose (Glucose Gel 15 Gm Gel..Gram.) 15 gm PO Q15M PRN; Protocol PRN Reason: per Hypoglycemia Standing Ord. Heparin Sodium (Porcine) (Heparin Sodium,Porcine 5,000 Unit/Ml Vial) 5,000 unit SUBCUT Q12H [facility] Last Admin: 04/05/25 00:19 Dose: 5,000 unit Documented By: JOANN Insulin Human Lispro (Insulin Lispro 100 Unit/Ml 3 Ml Vial) 0 unit SUBCUT QIDACHS [facility]; Protocol Last Admin: 04/04/25 20:48 Dose: 2 unit Documented By: JOANN Magnesium Hydroxide (Milk Of Magnesia 30 Ml Oral.Susp) 30 ml PO DAILY PRN PRN Reason: Constipation Meclizine HCl (Meclizine Hcl 12.5 Mg Tablet) 12.5 mg PO Q6H PRN PRN Reason: Dizziness Melatonin (Melatonin 3 Mg Tablet) 6 mg PO BEDTIME PRN PRN Reason: Insomnia Morphine Sulfate (Morphine Sulfate 4 Mg/Ml Cartridge) 4 mg IVPUSH Q4H PRN; Protocol PRN Reason: Pain, Severe (Pain Scale 7-10) Ondansetron HCl (Ondansetron Hcl 4 Mg/2 Ml Vial) 4 mg IVPUSH Q8H PRN PRN Reason: Nausea and Vomiting Oxycodone HCl (Oxycodone Hcl Immed Release 5 Mg Tablet) 5 mg PO Q4H PRN PRN Reason: Pain, Severe (Pain Scale 7-10) Last Admin: 04/05/25 02:47 Dose: 5 mg Documented By: JOANN Sevelamer Carbonate (Sevelamer Carbonate Powder 800 Mg Powd.Pack) 2,000 mg PO TIDWM [facility] Last Admin: 04/04/25 17:15 Dose: Not Given Documented By: TALYA Non-Admin Reason: post op Sodium Chloride (0.9 % Sodium Chloride Flush 3 Ml Syringe) 3 [facility] Last Admin: 04/04/25 20:49 Dose: 3 ml Documented By: JOANN Labs 04/05/25 05:37 04/05/25 05:37 Labs: Laboratory Results - last 24 hr 04/04/25 04/04/25 04/04/25 11:37 14:19 17:07 MCV MCH MCHC RDW Plt Count MPV Absolute Nucleated RBC Nucleated RBC % (auto) Anion Gap Estim Creat Clear Calc Estimated GFR POC Glucose 134 H 105 130 H Random Glucose Calcium Magnesium Total Bilirubin Direct Bilirubin AST ALT Alkaline Phosphatase Total Protein Albumin 04/04/25 04/05/25 04/05/25 19:35 05:37 07:40 MCV 91.3 MCH 29.9 MCHC 32.8 RDW 14.4 Plt Count 168 MPV 10.2 Absolute Nucleated RBC 0.000 Nucleated RBC % (auto) 0.0 Anion Gap 18 Estim Creat Clear Calc 5.1 Estimated GFR 4 POC Glucose 179 H 106 Random Glucose 98 Calcium 8.4 Magnesium 2.2 Total Bilirubin 0.6 Direct Bilirubin 0.2 AST 27 ALT 16 Alkaline Phosphatase 62 Total Protein 6.3 L Albumin 3.4 L Microbiology Microbiology Results: Microbiology 04/03/25 11:10 Blood Culture - Preliminary Blood - Venous No growth after 24 hours. 04/03/25 11:10 Blood Culture - Preliminary Blood - Venous No growth after 24 hours. Assessment and Plan (1) Acute cholecystitis: Status: Acute Plan 79F PMH ESRD on HD, DM, history of breast CA, HTN, HLD presented with RUQ abd pain, found to have acute cholecystitis Acute cholecystitis Postop day 1 cholecystectomy, continue IV Zosyn End-stage renal disease On hemodialysis, continue phosphate binders Diabetes Insulin sliding scale Hypertension Low normal blood pressures, hold losartan DVT prophylaxis with heparin subQ Full code reason for continued hospitalization: post op monitoring Quality Stroke Does the patient have a stroke diagnosis?: No VTE Prior VTE?: No VTE Risk Level:: Medical - moderate - high VTE Device Contraindication: N/A - Device Ordered VTE Drug Contraindication: N/A - Med Ordered
[2025-04-05] MEDS: 0.9 % Sodium Chloride Flush 3 ML SYRINGE IVFLUSH ×3 (08:27→21:36)
[2025-04-05 11:25] LABS: Glucose, Whole Blood 124 mg/dL (60-115)
[2025-04-05] MEDS: Sevelamer Carbonate Powder 800 MG POWD.PACK 2400 MG PO ×2 (14:01→17:35)
--- NOTE | 2025-04-05 14:48 | P.PNGS_ITS ---
Subjective Subjective Date of Service: 04/05/25 Interval history: pt doing well s/p lap iman no nausea hungry Physical Exam 2 Vital Signs: Vital Signs: Last Vital Signs Temp 98.2 F 04/05/25 07:38 Pulse 97 04/05/25 07:38 Resp 16 04/05/25 07:38 BP 117/56 L 04/05/25 07:38 Pulse Ox 92 04/05/25 07:38 O2 Del Method Room Air 04/05/25 07:38 O2 Flow Rate 2 04/04/25 17:52 BMI result Body Mass Index 34.3 Const: General: cooperative, healthy appearing, comfortable and no acute distress GI: Other: soft tender at incisions active bowel sounds Objective Data Active Medications Acetaminophen (Acetaminophen 325 Mg Tablet) 650 mg PO Q6H PRN PRN Reason: Pain, Mild 1-3,fever,headache Atorvastatin Calcium (Atorvastatin Calcium 20 Mg Tablet) 20 mg PO DAILY [facility] Last Admin: 04/05/25 08:27 Dose: 20 mg Documented By: HIMANSHU Bisacodyl (Bisacodyl 10 Mg Supp.Rect) 10 mg [place] DAILY PRN PRN Reason: Constipation Dextrose (Dextrose 50 % 25 Gm/50 Ml Syringe) 25 gm IVPUSH Q15M PRN; Protocol PRN Reason: per Hypoglycemia Standing Ord. Famotidine (Famotidine 20 Mg Tablet) 20 mg PO BEDTIME [facility] Last Admin: 04/04/25 20:49 Dose: 20 mg Documented By: JOANN Gabapentin (Gabapentin 100 Mg Capsule) 100 mg PO BID [facility] Last Admin: 04/05/25 08:27 Dose: 100 mg Documented By: HIMANSHU Glucose (Glucose Gel 15 Gm Gel..Gram.) 15 gm PO Q15M PRN; Protocol PRN Reason: per Hypoglycemia Standing Ord. Heparin Sodium (Porcine) (Heparin Sodium,Porcine 5,000 Unit/Ml Vial) 5,000 unit SUBCUT Q12H [facility] Last Admin: 04/05/25 14:01 Dose: 5,000 unit Documented By: HIMANSHU Insulin Human Lispro (Insulin Lispro 100 Unit/Ml 3 Ml Vial) 0 unit SUBCUT QIDACHS [facility]; Protocol Last Admin: 04/05/25 11:41 Dose: Not Given Documented By: HIMANSHU Non-Admin Reason: No Insulin Coverage Magnesium Hydroxide (Milk Of Magnesia 30 Ml Oral.Susp) 30 ml PO DAILY PRN PRN Reason: Constipation Meclizine HCl (Meclizine Hcl 12.5 Mg Tablet) 12.5 mg PO Q6H PRN PRN Reason: Dizziness Melatonin (Melatonin 3 Mg Tablet) 6 mg PO BEDTIME PRN PRN Reason: Insomnia Morphine Sulfate (Morphine Sulfate 4 Mg/Ml Cartridge) 4 mg IVPUSH Q4H PRN; Protocol PRN Reason: Pain, Severe (Pain Scale 7-10) Ondansetron HCl (Ondansetron Hcl 4 Mg/2 Ml Vial) 4 mg IVPUSH Q8H PRN PRN Reason: Nausea and Vomiting Oxycodone HCl (Oxycodone Hcl Immed Release 5 Mg Tablet) 5 mg PO Q4H PRN PRN Reason: Pain, Severe (Pain Scale 7-10) Last Admin: 04/05/25 02:47 Dose: 5 mg Documented By: JOANN Sevelamer Carbonate (Sevelamer Carbonate Powder 800 Mg Powd.Pack) 2,400 mg PO TIDWM [facility] Last Admin: 04/05/25 14:01 Dose: 2,400 mg Documented By: HIMANSHU Sodium Chloride (0.9 % Sodium Chloride Flush 3 Ml Syringe) 3 ml IVFLUSH [facility] Last Admin: 04/05/25 08:27 Dose: 3 ml Documented By: HIMANSHU Labs 04/05/25 05:37 04/05/25 05:37 Labs: Laboratory Results - last 24 hr 04/04/25 04/04/25 04/05/25 17:07 19:35 05:37 MCV 91.3 MCH 29.9 MCHC 32.8 RDW 14.4 Plt Count 168 MPV 10.2 Absolute Nucleated RBC 0.000 Nucleated RBC % (auto) 0.0 Anion Gap 18 Estim Creat Clear Calc 5.1 Estimated GFR 4 POC Glucose 130 H 179 H Random Glucose 98 Calcium 8.4 Magnesium 2.2 Total Bilirubin 0.6 Direct Bilirubin 0.2 AST 27 ALT 16 Alkaline Phosphatase 62 Total Protein 6.3 L Albumin 3.4 L 04/05/25 04/05/25 07:40 11:19 MCV MCH MCHC RDW Plt Count MPV Absolute Nucleated RBC Nucleated RBC % (auto) Anion Gap Estim Creat Clear Calc Estimated GFR POC Glucose 106 124 H Random Glucose Calcium Magnesium Total Bilirubin Direct Bilirubin AST ALT Alkaline Phosphatase Total Protein Albumin Microbiology Microbiology Results: Microbiology 04/03/25 11:10 Blood Culture - Preliminary Blood - Venous No growth after 48 hours. 04/03/25 11:10 Blood Culture - Preliminary Blood - Venous No growth after 48 hours. Procedures Date of Service Date of Service: 04/05/25 Progress Note: A&P Assessment and plan (1) Acute cholecystitis: Status: Acute Assessment and Plan: doing well s/p lap iman for acute cholecystitis - advance diet to low fat and po pain meds as tolerated Time Spent With Patient Time: Total time managing care of this patient today ____ minutes. Quality Stroke Does the patient have a stroke diagnosis?: No VTE Prior VTE?: No VTE Risk Level:: Medical - moderate - high VTE Device Contraindication: N/A - Device Ordered VTE Drug Contraindication: N/A - Med Ordered
[2025-04-05 14:54] VITALS: BP 151/69; PULSE 112; RESP 18; TEMP 36.8; O2SAT 96
[2025-04-05 16:27] LABS: Glucose, Whole Blood 137 mg/dL (60-115)
[2025-04-05 19:22] VITALS: BP 147/67; PULSE 100; RESP 18; TEMP 36.4; O2SAT 95
[2025-04-05 20:51] LABS: Glucose, Whole Blood 169 mg/dL (60-115)
[2025-04-05 23:10] VITALS: BP 118/56; PULSE 93; RESP 16; TEMP 37; O2SAT 95
[2025-04-06 03:22] VITALS: BP 123/58; PULSE 93; RESP 16; TEMP 37.4; O2SAT 94
[2025-04-06 07:38] LABS: Glucose, Whole Blood 122 mg/dL (60-115)
--- NOTE | 2025-04-06 07:43 | HO.POSTANES ---
Post Anesthesia Evaluation Post Anesthesia Evaluation Date of Service: 04/05/25 Vital Signs: Vital Signs Temp Pulse Resp BP Pulse Ox O2 Del Method 04/06/25 03:22 99.4 F 93 16 123/58 L 94 Room Air 04/05/25 23:10 98.6 F 93 16 118/56 L 95 Room Air Anesthesia: General Endotracheal-GETA Mental Status: Awake Pain Control: Satisfactory Nausea/Vomiting: None Hydration: Adequate Anesthesia-Related Issues: No Anes. Related Issues
[2025-04-06 08:00] VITALS: BP 135/62; PULSE 96; RESP 18; TEMP 36.4; O2SAT 97
--- NOTE | 2025-04-06 08:27 | HO.PM.IMPN ---
Subjective Subjective Date of Service: 04/06/25 Interval History: improving Physical Exam Vital Signs: Vital Signs: Last Vital Signs Temp 97.5 F 04/06/25 08:00 Pulse 96 04/06/25 08:00 Resp 18 04/06/25 08:00 BP 135/62 04/06/25 08:00 Pulse Ox 97 04/06/25 08:00 O2 Del Method Room Air 04/06/25 08:00 O2 Flow Rate 2 04/04/25 17:52 BMI result Body Mass Index 34.3 Const: General: cooperative, healthy appearing, comfortable and no acute distress GI: Other: soft tender at incisions active bowel sounds Objective Data Active Medications Acetaminophen (Acetaminophen 325 Mg Tablet) 650 mg PO Q6H PRN PRN Reason: Pain, Mild 1-3,fever,headache Last Admin: 04/05/25 19:23 Dose: 650 mg Documented By: JOANN Atorvastatin Calcium (Atorvastatin Calcium 20 Mg Tablet) 20 mg PO DAILY [facility] Last Admin: 04/05/25 08:27 Dose: 20 mg Documented By: HIMANSHU Bisacodyl (Bisacodyl 10 Mg Supp.Rect) 10 mg [place] DAILY PRN PRN Reason: Constipation Dextrose (Dextrose 50 % 25 Gm/50 Ml Syringe) 25 gm IVPUSH Q15M PRN; Protocol PRN Reason: per Hypoglycemia Standing Ord. Famotidine (Famotidine 20 Mg Tablet) 20 mg PO BEDTIME [facility] Last Admin: 04/05/25 21:36 Dose: 20 mg Documented By: JOANN Gabapentin (Gabapentin 100 Mg Capsule) 100 mg PO BID [facility] Last Admin: 04/05/25 21:36 Dose: 100 mg Documented By: JOANN Glucose (Glucose Gel 15 Gm Gel..Gram.) 15 gm PO Q15M PRN; Protocol PRN Reason: per Hypoglycemia Standing Ord. Heparin Sodium (Porcine) (Heparin Sodium,Porcine 5,000 Unit/Ml Vial) 5,000 unit SUBCUT Q12H [facility] Last Admin: 04/06/25 00:22 Dose: 5,000 unit Documented By: JOANN Insulin Human Lispro (Insulin Lispro 100 Unit/Ml 3 Ml Vial) 0 unit SUBCUT QIDACHS [facility]; Protocol Last Admin: 04/05/25 21:36 Dose: 2 unit Documented By: HO.ODRISM Magnesium Hydroxide (Milk Of Magnesia 30 Ml Oral.Susp) 30 ml PO DAILY PRN PRN Reason: Constipation Meclizine HCl (Meclizine Hcl 12.5 Mg Tablet) 12.5 mg PO Q6H PRN PRN Reason: Dizziness Melatonin (Melatonin 3 Mg Tablet) 6 mg PO BEDTIME PRN PRN Reason: Insomnia Morphine Sulfate (Morphine Sulfate 4 Mg/Ml Cartridge) 4 mg IVPUSH Q4H PRN; Protocol PRN Reason: Pain, Severe (Pain Scale 7-10) Ondansetron HCl (Ondansetron Hcl 4 Mg/2 Ml Vial) 4 mg IVPUSH Q8H PRN PRN Reason: Nausea and Vomiting Oxycodone HCl (Oxycodone Hcl Immed Release 5 Mg Tablet) 5 mg PO Q4H PRN PRN Reason: Pain, Severe (Pain Scale 7-10) Last Admin: 04/05/25 02:47 Dose: 5 mg Documented By: JOANN Sevelamer Carbonate (Sevelamer Carbonate Powder 800 Mg Powd.Pack) 2,400 mg PO TIDWM [facility] Last Admin: 04/05/25 17:35 Dose: 2,400 mg Documented By: HIMANSHU Sodium Chloride (0.9 % Sodium Chloride Flush 3 Ml Syringe) 3 ml IVFLUSH QSHIFT [facility] Last Admin: 04/05/25 21:36 Dose: 3 ml Documented By: JOANN Labs 04/05/25 05:37 04/05/25 05:37 Labs: Laboratory Results - last 24 hr 04/05/25 04/05/25 04/05/25 11:19 16:14 20:30 POC Glucose 124 H 137 H 169 H 04/06/25 07:25 POC Glucose 122 H Microbiology Microbiology Results: Microbiology 04/03/25 11:10 Blood Culture - Preliminary Blood - Venous No growth after 48 hours. 04/03/25 11:10 Blood Culture - Preliminary Blood - Venous No growth after 48 hours. Assessment and Plan (1) Acute cholecystitis: Status: Acute Plan 79F PMH ESRD on HD, DM, history of breast CA, HTN, HLD presented with RUQ abd pain, found to have acute cholecystitis Acute cholecystitis Postop day 2 cholecystectomy, advance diet PT eval End-stage renal disease On hemodialysis, continue phosphate binders Diabetes Insulin sliding scale Hypertension Low normal blood pressures, hold losartan DVT prophylaxis with heparin subQ Full code reason for continued hospitalization: PT eval pending Quality Stroke Does the patient have a stroke diagnosis?: No VTE Prior VTE?: No VTE Risk Level:: Medical - moderate - high VTE Device Contraindication: N/A - Device Ordered VTE Drug Contraindication: N/A - Med Ordered
[2025-04-06] MEDS: Sevelamer Carbonate Powder 800 MG POWD.PACK 2400 MG PO ×3 (10:31→16:44)
[2025-04-06] MEDS: 0.9 % Sodium Chloride Flush 3 ML SYRINGE IVFLUSH ×3 (10:33→21:22)
[2025-04-06 11:59] LABS: Glucose, Whole Blood 211 mg/dL (60-115)
[2025-04-06 12:00] VITALS: BP 135/60; PULSE 102; RESP 18; TEMP 36.4; O2SAT 95
--- NOTE | 2025-04-06 14:23 | P.PNGS_ITS ---
Subjective Subjective Date of Service: 04/06/25 Patient reports: no new complaints Interval history: Patient is doing well tolerating p.o. diet not much pain. Physical Exam 2 Vital Signs: Vital Signs: Last Vital Signs Temp 97.5 F 04/06/25 12:00 Pulse 102 H 04/06/25 12:00 Resp 18 04/06/25 12:00 BP 135/60 04/06/25 12:00 Pulse Ox 95 04/06/25 12:00 O2 Del Method Room Air 04/06/25 12:00 O2 Flow Rate 2 04/04/25 17:52 BMI result Body Mass Index 34.3 Const: General: cooperative, healthy appearing, comfortable and no acute distress GI: Other: Abdomen is soft nondistended little tender appropriately no guarding no rebound no peritoneal signs incision sites look good Objective Data Active Medications Acetaminophen (Acetaminophen 325 Mg Tablet) 650 mg PO Q6H PRN PRN Reason: Pain, Mild 1-3,fever,headache Last Admin: 04/06/25 10:39 Dose: 650 mg Documented By: VISH Atorvastatin Calcium (Atorvastatin Calcium 20 Mg Tablet) 20 mg PO DAILY [facility] Last Admin: 04/06/25 10:31 Dose: 20 mg Documented By: VISH Bisacodyl (Bisacodyl 10 Mg Supp.Rect) 10 mg [place] DAILY PRN PRN Reason: Constipation Dextrose (Dextrose 50 % 25 Gm/50 Ml Syringe) 25 gm IVPUSH Q15M PRN; Protocol PRN Reason: per Hypoglycemia Standing Ord. Famotidine (Famotidine 20 Mg Tablet) 20 mg PO BEDTIME [facility] Last Admin: 04/05/25 21:36 Dose: 20 mg Documented By: JOANN Gabapentin (Gabapentin 100 Mg Capsule) 100 mg PO BID [facility] Last Admin: 04/06/25 10:31 Dose: 100 mg Documented By: VISH Glucose (Glucose Gel 15 Gm Gel..Gram.) 15 gm PO Q15M PRN; Protocol PRN Reason: per Hypoglycemia Standing Ord. Heparin Sodium (Porcine) (Heparin Sodium,Porcine 5,000 Unit/Ml Vial) 5,000 unit SUBCUT Q12H [facility] Last Admin: 04/06/25 12:16 Dose: 5,000 unit Documented By: SOLISPE Insulin Human Lispro (Insulin Lispro 100 Unit/Ml 3 Ml Vial) 0 unit SUBCUT QIDACHS [facility]; Protocol Last Admin: 04/06/25 12:16 Dose: 4 unit Documented By: INES Magnesium Hydroxide (Milk Of Magnesia 30 Ml Oral.Susp) 30 ml PO DAILY PRN PRN Reason: Constipation Meclizine HCl (Meclizine Hcl 12.5 Mg Tablet) 12.5 mg PO Q6H PRN PRN Reason: Dizziness Melatonin (Melatonin 3 Mg Tablet) 6 mg PO BEDTIME PRN PRN Reason: Insomnia Morphine Sulfate (Morphine Sulfate 4 Mg/Ml Cartridge) 4 mg IVPUSH Q4H PRN; Protocol PRN Reason: Pain, Severe (Pain Scale 7-10) Ondansetron HCl (Ondansetron Hcl 4 Mg/2 Ml Vial) 4 mg IVPUSH Q8H PRN PRN Reason: Nausea and Vomiting Oxycodone HCl (Oxycodone Hcl Immed Release 5 Mg Tablet) 5 mg PO Q4H PRN PRN Reason: Pain, Severe (Pain Scale 7-10) Last Admin: 04/05/25 02:47 Dose: 5 mg Documented By: JOANN Sevelamer Carbonate (Sevelamer Carbonate Powder 800 Mg Powd.Pack) 2,400 mg PO TIDWM [facility] Last Admin: 04/06/25 10:31 Dose: 2,400 mg Documented By: VISH Sodium Chloride (0.9 % Sodium Chloride Flush 3 Ml Syringe) [facility] Last Admin: 04/06/25 10:33 Dose: 3 ml Documented By: VISH Labs 04/05/25 05:37 04/05/25 05:37 Labs: Laboratory Results - last 24 hr 04/05/25 04/05/25 04/06/25 16:14 20:30 07:25 POC Glucose 137 H 169 H 122 H 04/06/25 11:52 POC Glucose 211 H Microbiology Microbiology Results: Microbiology 04/03/25 11:10 Blood Culture - Preliminary Blood - Venous No growth after 48 hours. 04/03/25 11:10 Blood Culture - Preliminary Blood - Venous No growth after 48 hours. Procedures Date of Service Date of Service: 04/06/25 Progress Note: A&P Assessment and plan (1) Acute cholecystitis: Status: Acute Assessment and Plan: Patient is postop day 2 status post laparoscopic cholecystectomy doing really quite well continue with advancing diet p.o. pain meds patient can follow up with the surgical department in a week or 2 as an outpatient. Time Spent With Patient Time: Total time managing care of this patient today ____ minutes. Quality Stroke Does the patient have a stroke diagnosis?: No VTE Prior VTE?: No VTE Risk Level:: Medical - moderate - high VTE Device Contraindication: N/A - Device Ordered VTE Drug Contraindication: N/A - Med Ordered
[2025-04-06 16:00] VITALS: BP 126/59; PULSE 85; RESP 18; TEMP 36.8; O2SAT 97
[2025-04-06 16:48] LABS: Glucose, Whole Blood 137 mg/dL (60-115)
[2025-04-06 19:29] VITALS: BP 132/62; PULSE 85; RESP 18; TEMP 36.4; O2SAT 95
[2025-04-06 20:51] LABS: Glucose, Whole Blood 192 mg/dL (60-115)
[2025-04-07 02:52] VITALS: BP 129/59; PULSE 83; RESP 14; TEMP 36.1; O2SAT 94
--- NOTE | 2025-04-07 03:38 | PC.NURSE ---
Pt seen on bed alert and oriented, denies any pain, Abd surgical site benign, Dressing CDI, 1 dressing blood stained but dry, abd SNT, Left arm AV fsitula + bruit and thrill, meds tolerated, slept fairly.
[2025-04-07 07:08] LABS: Anion Gap 19 (12-20); Blood Urea Nitrogen 42 mg/dL (9-16); Calcium 8.5 mg/dL (8.4-10.2); Carbon Dioxide 24 mmol/L (22-29); Chloride 96 mmol/L (96-108); Creatinine Clr Calc Pharmacy 4.8; Estimated Glomerular Filt Rate 4; Potassium 4.1 mmol/L (3.3-5.1); Sodium 135 mmol/L (135-145)
--- NOTE | 2025-04-07 07:29 | PM.PNGS ---
Subjective Subjective Date of Service: 04/07/25 Interval history: doing well, some incision pain. Denies nausea, vomiting. Tolerating regular diet. Feels a bit weak, would like to go to rehab to build strength before going home. Minimally OOb as she needs assistance Physical Exam Vital Signs: Vital Signs: Last Vital Signs Temp 96.9 F 04/07/25 02:52 Pulse 83 04/07/25 02:52 Resp 14 04/07/25 02:52 BP 129/59 L 04/07/25 02:52 Pulse Ox 94 04/07/25 02:52 O2 Del Method Room Air 04/07/25 02:52 O2 Flow Rate 2 04/04/25 17:52 BMI result Body Mass Index 34.3 Const: General: comfortable and no acute distress Orientation/consciousness: patient oriented x3 Resp: Effort & Inspection: normal respiratory effort and able to speak in complete sentences GI: Other: dressings in place, clean and dry Inspection: No distended Palpation (GI): Soft to palpation, Tenderness to palpation present (GI) (incision sites) and no guarding Neuro: General: patient oriented x3 Objective Data Active Medications Acetaminophen (Acetaminophen 325 Mg Tablet) 650 mg PO Q6H PRN PRN Reason: Pain, Mild 1-3,fever,headache Last Admin: 04/06/25 10:39 Dose: 650 mg Documented By: VISH Atorvastatin Calcium (Atorvastatin Calcium 20 Mg Tablet) 20 mg PO DAILY [facility] Last Admin: 04/06/25 10:31 Dose: 20 mg Documented By: VISH Bisacodyl (Bisacodyl 10 Mg Supp.Rect) 10 mg [place] DAILY PRN PRN Reason: Constipation Dextrose (Dextrose 50 % 25 Gm/50 Ml Syringe) 25 gm IVPUSH Q15M PRN; Protocol PRN Reason: per Hypoglycemia Standing Ord. Famotidine (Famotidine 20 Mg Tablet) 20 mg PO BEDTIME [facility] Last Admin: 04/06/25 21:22 Dose: 20 mg Documented By: ZACH Gabapentin (Gabapentin 100 Mg Capsule) 100 mg PO BID [facility] Last Admin: 04/06/25 21:22 Dose: 100 mg Documented By: ZACH Glucose (Glucose Gel 15 Gm Gel..Gram.) 15 gm PO Q15M PRN; Protocol PRN Reason: per Hypoglycemia Standing Ord. Heparin Sodium (Porcine) (Heparin Sodium,Porcine 5,000 Unit/Ml Vial) 5,000 unit SUBCUT Q12H [facility] Last Admin: 04/07/25 00:46 Dose: 5,000 unit Documented By: ZACH Insulin Human Lispro (Insulin Lispro 100 Unit/Ml 3 Ml Vial) 0 unit SUBCUT QIDACHS [facility]; Protocol Last Admin: 04/06/25 21:21 Dose: 2 unit Documented By: ZACH Magnesium Hydroxide (Milk Of Magnesia 30 Ml Oral.Susp) 30 ml PO DAILY PRN PRN Reason: Constipation Meclizine HCl (Meclizine Hcl 12.5 Mg Tablet) 12.5 mg PO Q6H PRN PRN Reason: Dizziness Melatonin (Melatonin 3 Mg Tablet) 6 mg PO BEDTIME PRN PRN Reason: Insomnia Morphine Sulfate (Morphine Sulfate 4 Mg/Ml Cartridge) 4 mg IVPUSH Q4H PRN; Protocol PRN Reason: Pain, Severe (Pain Scale 7-10) Ondansetron HCl (Ondansetron Hcl 4 Mg/2 Ml Vial) 4 mg IVPUSH Q8H PRN PRN Reason: Nausea and Vomiting Oxycodone HCl (Oxycodone Hcl Immed Release 5 Mg Tablet) 5 mg PO Q4H PRN PRN Reason: Pain, Severe (Pain Scale 7-10) Last Admin: 04/05/25 02:47 Dose: 5 mg Documented By: JOANN Sevelamer Carbonate (Sevelamer Carbonate Powder 800 Mg Powd.Pack) 2,400 mg PO TIDWM [facility] Last Admin: 04/06/25 16:44 Dose: 2,400 mg Documented By: SOLISPE Sodium Chloride (0.9 % Sodium Chloride Flush 3 Ml Syringe) 3 ml IVFLUSH QSHIFT [facility] Last Admin: 04/06/25 21:22 Dose: 3 ml Documented By: ZACH Labs 04/05/25 05:37 04/07/25 05:53 Labs: Laboratory Results - last 24 hr 04/06/25 04/06/25 04/06/25 07:25 11:52 16:39 Anion Gap Estim Creat Clear Calc Estimated GFR POC Glucose 122 H 211 H 137 H Random Glucose Calcium 04/06/25 04/07/25 20:38 05:53 Anion Gap 19 Estim Creat Clear Calc 4.8 Estimated GFR 4 POC Glucose 192 H Random Glucose 126 H Calcium 8.5 Procedures Date of Service Date of Service: 04/07/25 Progress Note: A&P Assessment and plan (1) S/P laparoscopic cholecystectomy: Status: Acute (2) Acute cholecystitis: Status: Acute Plan 79 year old female POD 3 s/p laparascopic cholecystectomy. She is overall doing well. some mild incisional pain.Denying nausea or vomiting. Tolerating regular diet. Minimal ambulation as she feels weak and needs assistance to ambulate. Will order for PT eval for anticipated DC. Abdomen is soft and benign. Incision site dressings in place, clean and dry. Can likely DC today, want PT eval prior Time Spent With Patient Time: Total time managing care of this patient today ____ minutes. Quality Stroke Does the patient have a stroke diagnosis?: No VTE Prior VTE?: No VTE Risk Level:: Medical - moderate - high VTE Device Contraindication: N/A - Device Ordered VTE Drug Contraindication: N/A - Med Ordered
--- NOTE | 2025-04-07 07:36 | P.PNIM_ITS ---
Subjective Subjective Date of Service: 04/07/25 Interval History: Patient pending PT eval Received hemodialysis today per her schedule Placement pending-they require hepatitis-B eval prior to discharge manager forensic working on placement-we will need coordination with regarding to her hemodialysis schedule, which is the limiting factor for her discharge planning Review of Systems Review of Systems: Yes all other systems are reviewed and are negative Physical Exam 2 Vital Signs: Vital Signs: Last Vital Signs Temp 96.9 F 04/07/25 02:52 Pulse 83 04/07/25 02:52 Resp 14 04/07/25 02:52 BP 129/59 L 04/07/25 02:52 Pulse Ox 94 04/07/25 02:52 O2 Del Method Room Air 04/07/25 02:52 O2 Flow Rate 2 04/04/25 17:52 BMI result Body Mass Index 34.3 Const: General: cooperative, healthy appearing, comfortable and no acute distress GI: Other: soft tender at incisions active bowel sounds Objective Data Active Medications Acetaminophen (Acetaminophen 325 Mg Tablet) 650 mg PO Q6H PRN PRN Reason: Pain, Mild 1-3,fever,headache Last Admin: 04/06/25 10:39 Dose: 650 mg Documented By: VISH Atorvastatin Calcium (Atorvastatin Calcium 20 Mg Tablet) 20 mg PO DAILY [facility] Last Admin: 04/06/25 10:31 Dose: 20 mg Documented By: VISH Bisacodyl (Bisacodyl 10 Mg Supp.Rect) 10 mg [place] DAILY PRN PRN Reason: Constipation Dextrose (Dextrose 50 % 25 Gm/50 Ml Syringe) 25 gm IVPUSH Q15M PRN; Protocol PRN Reason: per Hypoglycemia Standing Ord. Famotidine (Famotidine 20 Mg Tablet) 20 mg PO BEDTIME [facility] Last Admin: 04/06/25 21:22 Dose: 20 mg Documented By: ZACH Gabapentin (Gabapentin 100 Mg Capsule) 100 mg PO BID [facility] Last Admin: 04/06/25 21:22 Dose: 100 mg Documented By: ZACH Glucose (Glucose Gel 15 Gm Gel..Gram.) 15 gm PO Q15M PRN; Protocol PRN Reason: per Hypoglycemia Standing Ord. Heparin Sodium (Porcine) (Heparin Sodium,Porcine 5,000 Unit/Ml Vial) 5,000 unit SUBCUT Q12H [facility] Last Admin: 04/07/25 00:46 Dose: 5,000 unit Documented By: ZACH Insulin Human Lispro (Insulin Lispro 100 Unit/Ml 3 Ml Vial) 0 unit SUBCUT QIDACHS [facility]; Protocol Last Admin: 04/06/25 21:21 Dose: 2 unit Documented By: ZACH Magnesium Hydroxide (Milk Of Magnesia 30 Ml Oral.Susp) 30 ml PO DAILY PRN PRN Reason: Constipation Meclizine HCl (Meclizine Hcl 12.5 Mg Tablet) 12.5 mg PO Q6H PRN PRN Reason: Dizziness Melatonin (Melatonin 3 Mg Tablet) 6 mg PO BEDTIME PRN PRN Reason: Insomnia Morphine Sulfate (Morphine Sulfate 4 Mg/Ml Cartridge) 4 mg IVPUSH Q4H PRN; Protocol PRN Reason: Pain, Severe (Pain Scale 7-10) Ondansetron HCl (Ondansetron Hcl 4 Mg/2 Ml Vial) 4 mg IVPUSH Q8H PRN PRN Reason: Nausea and Vomiting Oxycodone HCl (Oxycodone Hcl Immed Release 5 Mg Tablet) 5 mg PO Q4H PRN PRN Reason: Pain, Severe (Pain Scale 7-10) Last Admin: 04/05/25 02:47 Dose: 5 mg Documented By: ODRISJelena Sevelamer Carbonate (Sevelamer Carbonate Powder 800 Mg Powd.Pack) 2,400 mg PO TIDWM [facility] Last Admin: 04/06/25 16:44 Dose: 2,400 mg Documented By: MARIA GUADALUPEISBRANDY Sodium Chloride (0.9 % Sodium Chloride Flush 3 Ml Syringe) [facility] Last Admin: 04/06/25 21:22 Dose: 3 ml Documented By: ZACH Labs 04/07/25 08:11 04/07/25 05:53 Labs: Laboratory Results - last 24 hr 04/06/25 04/06/25 04/06/25 07:25 11:52 16:39 Anion Gap Estim Creat Clear Calc Estimated GFR POC Glucose 122 H 211 H 137 H Random Glucose Calcium 04/06/25 04/07/25 20:38 05:53 Anion Gap 19 Estim Creat Clear Calc 4.8 Estimated GFR 4 POC Glucose 192 H Random Glucose 126 H Calcium 8.5 Assessment and Plan (1) Acute cholecystitis: Status: Acute Plan 79F PMH ESRD on HD, DM, history of breast CA, HTN, HLD presented with RUQ abd pain, found to have acute cholecystitis, awaiting placement STR Acute cholecystitis Postop day 3 cholecystectomy, advance diet PT eval -recommending STR - which is the limiting factor End-stage renal disease on MWF ann, cont per ann On hemodialysis, continue phosphate binders Diabetes Insulin sliding scale Hypertension Low normal blood pressures, hold losartan DVT prophylaxis with heparin subQ Full code reason for continued hospitalization: Patient pending PT eval Placement pending-they require hepatitis-B eval prior to discharge manager forensic working on placement-we will need coordination with regarding to her hemodialysis schedule, which is the limiting factor for her discharge planning Quality Stroke Does the patient have a stroke diagnosis?: No VTE Prior VTE?: No VTE Risk Level:: Medical - moderate - high VTE Device Contraindication: N/A - Device Ordered VTE Drug Contraindication: N/A - Med Ordered
[2025-04-07 07:46] LABS: Glucose, Whole Blood 118 mg/dL (60-115)
[2025-04-07 08:00] VITALS: BP 151/68; PULSE 85; RESP 18; TEMP 36.3; O2SAT 93
[2025-04-07 08:28] LABS: Hematocrit 35.8 % (37.0-47.0); Hemoglobin 12.0 g/dl (12.0-16.0); Mean Corpuscular HGB Conc 33.5 g/dl (31.0-35.0); Mean Corpuscular Hemoglobin 30.0 pg (27.0-33.0); Mean Corpuscular Volume 89.5 fL (80.0-98.0); NRBC Abs Auto 0.000 X10*3/uL (0.0-0.012); NRBC Pct Auto 0.0 /100WBC (0.0-0.2); Platelet Count 150 X10*3/uL (160-400); Red Blood Count 4.00 X10*6/uL (4.20-5.50); White Blood Count 3.5 X10*3/uL (4.8-10.8)
[2025-04-07 11:31] LABS: Glucose, Whole Blood 153 mg/dL (60-115)
[2025-04-07 12:00] VITALS: BP 109/54; PULSE 100; RESP 18; TEMP 36.2; O2SAT 93
[2025-04-07] MEDS: 0.9 % Sodium Chloride Flush 3 ML SYRINGE IVFLUSH ×3 (12:34→20:30)
[2025-04-07] MEDS: Sevelamer Carbonate Powder 800 MG POWD.PACK 2400 MG PO ×2 (12:34→16:48)
--- NOTE | 2025-04-07 13:08 | W.PM.DNNEP ---
Subjective Subjective Date of Service: 04/07/25 This patient was seen during dialysis. Interval history: improving Physical Exam Vital Signs: Vital Signs: Last Vital Signs Temp 97.1 F 04/07/25 12:00 Pulse 100 04/07/25 12:00 Resp 18 04/07/25 12:00 BP 109/54 L 04/07/25 12:00 Pulse Ox 93 04/07/25 12:00 O2 Del Method Room Air 04/07/25 12:00 O2 Flow Rate 2 04/04/25 17:52 BMI result Body Mass Index 34.3 Comfortable Neck supple no JVD. Lungs entry equal no rales. Heart S1-S2 heard no gallop or rub. Abdomen soft nontender. Neuro alert awake oriented. No asterixis. Extremities no edema. Assessment & Plan Assessment and plan (1) ESRD (end stage renal disease) on dialysis: Status: Acute Plan No s/s of uremia Volume status OK HD MWF S/p Cholecystectomy Time Spent With Patient Time: Total time managing care of this patient today ____ minutes. Procedures Date of Service Date of Service: 04/07/25
--- NOTE | 2025-04-07 14:29 | MHC.CM.PN ---
Addendum entered by Dilma Mack 04/07/25 14:33: [facility] IS OFFERING THEY ARE CHECKING TO SEE IF SHE CAN HAVE HD THERE, IF NOT, SHE WILL NEED PVTA ARRANGEMENTS TO GET TO HD AT [facility] IN [place], HER HOME CLINIC PT WILL ALSO NEED A HEP B TEST PRIOR TO TRANSFER, AWARE Original Note: REFERRAL BROADCASTED FOR [facility], [facility], [facility], [facility] AND [facility], HOWEVER PT WOULD NEED TRANSPORT TO HD WHICH IS NOT COVERED BY HER INSURANCE CM MET WITH PT AND DAUGHTER AT BEDSIDE DAUGHTER CONFIRMS THE PLAN IS FOR PT TO RETURN TO HER HOME AFTER REHAB, BUT SHE HAS STAIRS AND PT HAS TO GO OUT FOR HD 3X/WK SO HAS TO BE ABLE TO GET AROUND. DAUGHTER STATES [facility] WOULD BE NICE, BUT THEY WOULD BE AGREEABLE TO ANY OF THE SNFS OFFERING. SHE SAYS SHE IS TRYING NOT TO PUT PT [place], SHE OWNS A HOME IN [place] SHE UNDERSTANDS THAT PTS INSURANCE MAY NOT AUTH STR AT WHICH TIME SHE WOULD EITHER NEED TO APPLY FOR MH OR MAKE AN ALTERNATE PLAN
[2025-04-07 15:09] VITALS: BP 120/57; PULSE 99; RESP 18; TEMP 36.5; O2SAT 98
[2025-04-07 16:36] LABS: Glucose, Whole Blood 169 mg/dL (60-115)
[2025-04-07 19:50] VITALS: BP 124/59; PULSE 82; RESP 18; TEMP 36.3; O2SAT 99
[2025-04-07 20:13] LABS: Glucose, Whole Blood 111 mg/dL (60-115)
[2025-04-07 23:53] VITALS: BP 135/65; PULSE 76; RESP 18; TEMP 36.9; O2SAT 95
[2025-04-08 03:10] VITALS: BP 122/57; PULSE 74; RESP 18; TEMP 36.9; O2SAT 97
[2025-04-08 05:19] LABS: HBS Num1 18.49 mIU/mL (0-7.99); HBc Num1 0.06 S/CO (0.00-0.79); HBsAGNum1 0.31 S/CO (0.00-0.99); Hepatitis B Surface Antigen Negative (Negative); ~Hepatitis B Surface Antibody REACTIVE (Nonreactive)
[2025-04-08 07:01] LABS: MANUAL DIFF FLAG NO
[2025-04-08 07:12] LABS: Hematocrit 33.6 % (37.0-47.0); Hemoglobin 11.0 g/dl (12.0-16.0); Imm Gran Abs Auto 0.01 X10*3/uL (0.00-0.03); Imm Gran Pct Auto 0.3 % (0.0-0.4); Lymphocytes Absolute Auto 1.4 X10*3/uL (1.2-4.9); Mean Corpuscular HGB Conc 32.7 g/dl (31.0-35.0); Mean Corpuscular Hemoglobin 29.6 pg (27.0-33.0); Mean Corpuscular Volume 90.3 fL (80.0-98.0); NRBC Abs Auto 0.000 X10*3/uL (0.0-0.012); NRBC Pct Auto 0.0 /100WBC (0.0-0.2); Platelet Count 167 X10*3/uL (160-400); Red Blood Count 3.72 X10*6/uL (4.20-5.50); White Blood Count 3.7 X10*3/uL (4.8-10.8)
--- NOTE | 2025-04-08 07:36 | P.PNGS_ITS ---
Subjective Subjective Date of Service: 04/08/25 Interval history: No acute events overnight. She is doing well, denies abdominal pain, nausea, vomiting. trying to eat more when she likes the food. Physical Exam 2 Vital Signs: Vital Signs: Last Vital Signs Temp 98.5 F 04/08/25 03:10 Pulse 74 04/08/25 03:10 Resp 18 04/08/25 03:10 BP 122/57 L 04/08/25 03:10 Pulse Ox 97 04/08/25 03:10 O2 Del Method Room Air 04/08/25 03:10 O2 Flow Rate 2 04/04/25 17:52 BMI result Body Mass Index 34.3 Const: General: comfortable and no acute distress O rientation/consciousness: patient oriented x3 Resp: Effort & Inspection: normal respiratory effort and able to speak in complete sentences GI: Other: incision sites clean and dry. no drainage, bleeding Inspection: No distended Palpation (GI): Soft to palpation and nontender Neuro: General: patient oriented x3 Objective Data Active Medications Acetaminophen (Acetaminophen 325 Mg Tablet) 650 mg PO Q6H PRN PRN Reason: Pain, Mild 1-3,fever,headache Last Admin: 04/07/25 13:42 Dose: 650 mg Documented By: BEVERLEY Atorvastatin Calcium (Atorvastatin Calcium 20 Mg Tablet) 20 mg PO DAILY [facility] Last Admin: 04/07/25 12:34 Dose: 20 mg Documented By: BEVERLEY Bisacodyl (Bisacodyl 10 Mg Supp.Rect) 10 mg [place] DAILY PRN PRN Reason: Constipation Dextrose (Dextrose 50 % 25 Gm/50 Ml Syringe) 25 gm IVPUSH Q15M PRN; Protocol PRN Reason: per Hypoglycemia Standing Ord. Famotidine (Famotidine 20 Mg Tablet) 20 mg PO BEDTIME [facility] Last Admin: 04/07/25 20:28 Dose: 20 mg Documented By: ETHEL Gabapentin (Gabapentin 100 Mg Capsule) 100 mg PO BID [facility] Last Admin: 04/07/25 20:28 Dose: 100 mg Documented By: ETHEL Glucose (Glucose Gel 15 Gm Gel..Gram.) 15 gm PO Q15M PRN; Protocol PRN Reason: per Hypoglycemia Standing Ord. Heparin Sodium (Porcine) (Heparin Sodium,Porcine 5,000 Unit/Ml Vial) 5,000 unit SUBCUT Q12H [facility] Last Admin: 04/08/25 01:18 Dose: 5,000 unit Documented By: ETHEL Insulin Human Lispro (Insulin Lispro 100 Unit/Ml 3 Ml Vial) 0 unit SUBCUT QIDACHS [facility]; Protocol Last Admin: 04/07/25 20:34 Dose: Not Given Documented By: ETHEL Non-Admin Reason: No Insulin Coverage Magnesium Hydroxide (Milk Of Magnesia 30 Ml Oral.Susp) 30 ml PO DAILY PRN PRN Reason: Constipation Meclizine HCl (Meclizine Hcl 12.5 Mg Tablet) 12.5 mg PO Q6H PRN PRN Reason: Dizziness Melatonin (Melatonin 3 Mg Tablet) 6 mg PO BEDTIME PRN PRN Reason: Insomnia Morphine Sulfate (Morphine Sulfate 4 Mg/Ml Cartridge) 4 mg IVPUSH Q4H PRN; Protocol PRN Reason: Pain, Severe (Pain Scale 7-10) Ondansetron HCl (Ondansetron Hcl 4 Mg/2 Ml Vial) 4 mg IVPUSH Q8H PRN PRN Reason: Nausea and Vomiting Oxycodone HCl (Oxycodone Hcl Immed Release 5 Mg Tablet) 5 mg PO Q4H PRN PRN Reason: Pain, Severe (Pain Scale 7-10) Last Admin: 04/05/25 02:47 Dose: 5 mg Documented By: JOANN Sevelamer Carbonate (Sevelamer Carbonate Powder 800 Mg Powd.Pack) 2,400 mg PO TIDWM [facility] Last Admin: 04/07/25 16:48 Dose: 2,400 mg Documented By: BEVERLEY Sodium Chloride (0.9 % Sodium Chloride Flush 3 Ml Syringe) [facility] Last Admin: 04/07/25 20:30 Dose: 3 ml Documented By: ETHEL Labs 04/08/25 05:53 04/08/25 05:53 Labs: Laboratory Results - last 24 hr 04/07/25 04/07/25 04/07/25 07:26 08:11 11:26 MCV 89.5 MCH 30.0 MCHC 33.5 RDW 14.0 Plt Count 150 L MPV 10.3 Immature Gran % (Auto) Neut % (Auto) Lymph % (Auto) [place] % (Auto) Eos % (Auto) Baso % (Auto) Lymph # (Auto) [place] # (Auto) Eos # (Auto) Baso # (Auto) Abs Immat Gran (auto) Absolute Neuts (auto) Absolute Nucleated RBC 0.000 Nucleated RBC % (auto) 0.0 POC Glucose 118 H 153 H Hep Bs Antigen Hep Bs Antibody Hep B Core Total Ab 04/07/25 04/07/25 04/07/25 16:32 16:40 20:09 MCV MCH MCHC RDW Plt Count MPV Immature Gran % (Auto) Neut % (Auto) Lymph % (Auto) [place] % (Auto) Eos % (Auto) Baso % (Auto) Lymph # (Auto) [place] # (Auto) Eos # (Auto) Baso # (Auto) Abs Immat Gran (auto) Absolute Neuts (auto) Absolute Nucleated RBC Nucleated RBC % (auto) POC Glucose 169 H 111 Hep Bs Antigen Negative Hep Bs Antibody REACTIVE Hep B Core Total Ab Nonreactive 04/08/25 05:53 MCV 90.3 MCH 29.6 MCHC 32.7 RDW 14.4 Plt Count 167 MPV 10.4 Immature Gran % (Auto) 0.3 Neut % (Auto) 37.0 L Lymph % (Auto) 37.5 [place] % (Auto) 16.8 H Eos % (Auto) 7.6 H Baso % (Auto) 0.8 Lymph # (Auto) 1.4 [place] # (Auto) 0.6 Eos # (Auto) 0.3 Baso # (Auto) 0.0 Abs Immat Gran (auto) 0.01 Absolute Neuts (auto) 1.4 L Absolute Nucleated RBC 0.000 Nucleated RBC % (auto) 0.0 POC Glucose Hep Bs Antigen Hep Bs Antibody Hep B Core Total Ab Procedures Date of Service Date of Service: 04/08/25 Progress Note: A&P Assessment and plan (1) S/P laparoscopic cholecystectomy: Status: Acute (2) Acute cholecystitis: Status: Acute Plan 79 year old female POD 4 s/p laparascopic cholecystectomy. She is overall doing well. denying significant pain. Denying nausea or vomiting. Tolerating regular diet. Abdomen is soft and benign. Incision site dressings removed, appear clean and dry, no concerns for infection at this time. Seems like there has been a bed found at a rehab for her. From a surgical standpoint, ready to DC. Recommend DC with plan to follow up in the office in 1-2 weeks, no heavy lifting. Recommendations in DC paperwork. General surgery will sign off, thank you for allowing us to participate in this patients care, please reach out with any questions or concerns prior to DC. continue iv abx while inpatient. diet as tolerated. Time Spent With Patient Time: Total time managing care of this patient today ____ minutes. Quality Stroke Does the patient have a stroke diagnosis?: No VTE Prior VTE?: No VTE Risk Level:: Medical - moderate - high VTE Device Contraindication: N/A - Device Ordered VTE Drug Contraindication: N/A - Med Ordered
[2025-04-08 07:40] LABS: Alanine Aminotransferase < 6 U/L (0-31); Albumin Level 3.6 g/dL (3.5-5.0); Alkaline Phosphatase 58 U/L (39-117); Anion Gap 16 (12-20); Aspartate Amino Transferase 21 U/L (5-31); Blood Urea Nitrogen 33 mg/dL (9-16); Calcium 8.9 mg/dL (8.4-10.2); Carbon Dioxide 28 mmol/L (22-29); Chloride 97 mmol/L (96-108); Creatinine Clr Calc Pharmacy 5.9; Estimated Glomerular Filt Rate 5; Magnesium 2.3 mg/dL (1.6-2.6); Potassium 3.9 mmol/L (3.3-5.1); Sodium 137 mmol/L (135-145); Total Protein 6.7 g/dL (6.5-8.0)
[2025-04-08 07:41] LABS: Glucose, Whole Blood 134 mg/dL (60-115)
[2025-04-08 08:05] VITALS: BP 132/61; PULSE 97; RESP 15; TEMP 36.3; O2SAT 96
[2025-04-08] MEDS: 0.9 % Sodium Chloride Flush 3 ML SYRINGE IVFLUSH ×3 (08:08→20:32)
[2025-04-08 11:42] LABS: Glucose, Whole Blood 100 mg/dL (60-115)
[2025-04-08] MEDS: Sevelamer Carbonate Powder 800 MG POWD.PACK 2400 MG PO ×2 (11:49→16:37)
--- NOTE | 2025-04-08 12:31 | P.PNIM_ITS ---
Subjective Subjective Date of Service: 04/08/25 Interval History: Pt got a STR auth , but cannot get HD prior to as Rehab place can only accomodate him for HD starting Monday Will get HD tomorrow (holiday ann is diff) HD - Hepatitis B panel pending Review of Systems Review of Systems: Yes all other systems are reviewed and are negative Physical Exam 2 Exam: Exam: General: AOx3, no acute distress, resting on chair , morbid obesity Abd: Incision sites - C/D/I Resp: CTA bilaterally CVS: S1, S2, RRR GI: +BS, NT, no distention Neuro: Motor grossly intact bilaterally Vital Signs: Vital Signs: Last Vital Signs Temp 97.4 F 04/08/25 08:05 Pulse 97 04/08/25 08:05 Resp 15 04/08/25 08:05 BP 132/61 04/08/25 08:05 Pulse Ox 96 04/08/25 08:05 O2 Del Method Room Air 04/08/25 08:05 O2 Flow Rate 2 04/04/25 17:52 BMI result Body Mass Index 34.3 Objective Data Active Medications Acetaminophen (Acetaminophen 325 Mg Tablet) 650 mg PO Q6H PRN PRN Reason: Pain, Mild 1-3,fever,headache Last Admin: 04/07/25 13:42 Dose: 650 mg Documented By: BEVERLEY Atorvastatin Calcium (Atorvastatin Calcium 20 Mg Tablet) 20 mg PO DAILY [facility] Last Admin: 04/08/25 08:08 Dose: 20 mg Documented By: BEVERLEY Bisacodyl (Bisacodyl 10 Mg Supp.Rect) 10 mg [place] DAILY PRN PRN Reason: Constipation Dextrose (Dextrose 50 % 25 Gm/50 Ml Syringe) 25 gm IVPUSH Q15M PRN; Protocol PRN Reason: per Hypoglycemia Standing Ord. Famotidine (Famotidine 20 Mg Tablet) 20 mg PO BEDTIME [facility] Last Admin: 04/07/25 20:28 Dose: 20 mg Documented By: ETHEL Gabapentin (Gabapentin 100 Mg Capsule) 100 mg PO BID [facility] Last Admin: 04/08/25 08:08 Dose: 100 mg Documented By: BEVERLEY Glucose (Glucose Gel 15 Gm Gel..Gram.) 15 gm PO Q15M PRN; Protocol PRN Reason: per Hypoglycemia Standing Ord. Heparin Sodium (Porcine) (Heparin Sodium,Porcine 5,000 Unit/Ml Vial) 5,000 unit SUBCUT Q12H [facility] Last Admin: 04/08/25 01:18 Dose: 5,000 unit Documented By: ETHEL Insulin Human Lispro (Insulin Lispro 100 Unit/Ml 3 Ml Vial) 0 unit SUBCUT QIDACHS [facility]; Protocol Last Admin: 04/08/25 11:41 Dose: Not Given Documented By: BEVERLEY Non-Admin Reason: No Insulin Coverage Magnesium Hydroxide (Milk Of Magnesia 30 Ml Oral.Susp) 30 ml PO DAILY PRN PRN Reason: Constipation Meclizine HCl (Meclizine Hcl 12.5 Mg Tablet) 12.5 mg PO Q6H PRN PRN Reason: Dizziness Melatonin (Melatonin 3 Mg Tablet) 6 mg PO BEDTIME PRN PRN Reason: Insomnia Morphine Sulfate (Morphine Sulfate 4 Mg/Ml Cartridge) 4 mg IVPUSH Q4H PRN; Protocol PRN Reason: Pain, Severe (Pain Scale 7-10) Ondansetron HCl (Ondansetron Hcl 4 Mg/2 Ml Vial) 4 mg IVPUSH Q8H PRN PRN Reason: Nausea and Vomiting Oxycodone HCl (Oxycodone Hcl Immed Release 5 Mg Tablet) 5 mg PO Q4H PRN PRN Reason: Pain, Severe (Pain Scale 7-10) Last Admin: 04/05/25 02:47 Dose: 5 mg Documented By: JOANN Sevelamer Carbonate (Sevelamer Carbonate Powder 800 Mg Powd.Pack) 2,400 mg PO TIDWM [facility] Last Admin: 04/08/25 11:49 Dose: 2,400 mg Documented By: BEVERLEY Sodium Chloride (0.9 % Sodium Chloride Flush 3 Ml Syringe) 3 ml IVFLUSH QSHIFT [facility] Last Admin: 04/08/25 08:08 Dose: 3 ml Documented By: BEVERLEY Labs 04/08/25 05:53 04/08/25 05:53 Labs: Laboratory Results - last 24 hr 04/07/25 04/07/25 04/07/25 16:32 16:40 20:09 MCV MCH MCHC RDW Plt Count MPV Immature Gran % (Auto) Neut % (Auto) Lymph % (Auto) [place] % (Auto) Eos % (Auto) Baso % (Auto) Lymph # (Auto) [place] # (Auto) Eos # (Auto) Baso # (Auto) Abs Immat Gran (auto) Absolute Neuts (auto) Absolute Nucleated RBC Nucleated RBC % (auto) Anion Gap Estim Creat Clear Calc Estimated GFR POC Glucose 169 H 111 Random Glucose Calcium Magnesium Total Bilirubin AST ALT Alkaline Phosphatase Total Protein Albumin Hep Bs Antigen Negative Hep Bs Antibody REACTIVE Hep B Core Total Ab Nonreactive 04/08/25 04/08/25 04/08/25 05:53 07:37 11:38 MCV 90.3 MCH 29.6 MCHC 32.7 RDW 14.4 Plt Count 167 MPV 10.4 Immature Gran % (Auto) 0.3 Neut % (Auto) 37.0 L Lymph % (Auto) 37.5 [place] % (Auto) 16.8 H Eos % (Auto) 7.6 H Baso % (Auto) 0.8 Lymph # (Auto) 1.4 [place] # (Auto) 0.6 Eos # (Auto) 0.3 Baso # (Auto) 0.0 Abs Immat Gran (auto) 0.01 Absolute Neuts (auto) 1.4 L Absolute Nucleated RBC 0.000 Nucleated RBC % (auto) 0.0 Anion Gap 16 Estim Creat Clear Calc 5.9 Estimated GFR 5 POC Glucose 134 H 100 Random Glucose 107 Calcium 8.9 Magnesium 2.3 Total Bilirubin 0.5 AST 21 ALT < 6 Alkaline Phosphatase 58 Total Protein 6.7 Albumin 3.6 Hep Bs Antigen Hep Bs Antibody Hep B Core Total Ab Assessment and Plan (1) Acute cholecystitis: Status: Acute Plan 79F PMH ESRD on HD, DM, history of breast CA, HTN, HLD presented with RUQ abd pain, found to have acute cholecystitis, s/p cholecystectomy. will be DC tomorrow post HD [facility] Acute cholecystitis s/p cholecystectomy Postop day 4 cholecystectomy, advance diet PT eval -recommending STR - Will Dc tomorrow post HD Hep B results pending prior to acceptance - Ab -ve End-stage renal disease on [facility] ann, will get HD tomorrow (switch in ann due to holiday ann) On hemodialysis, continue phosphate binders Diabetes Insulin sliding scale Hypertension Low normal blood pressures, hold losartan DVT prophylaxis with heparin subQ Full code reason for continued hospitalization: Pt will get HD-they require hepatitis-B eval prior to discharge Will Dc tomorrow post HD Quality Stroke Does the patient have a stroke diagnosis?: No VTE Prior VTE?: No VTE Risk Level:: Medical - moderate - high VTE Device Contraindication: N/A - Device Ordered VTE Drug Contraindication: N/A - Med Ordered
--- NOTE | 2025-04-08 13:03 | MHC.CM.PN ---
pt to be dcd ater dialysis 04/09 to [facility]
--- NOTE | 2025-04-08 13:14 | MHC.CM.PN ---
pts virgil clifton notified of dc
[2025-04-08 13:32] VITALS: BP 133/55; PULSE 84; RESP 18; TEMP 37; O2SAT 98
--- NOTE | 2025-04-08 14:11 | P.PNNP_ITS ---
Subjective Subjective Date of Service: 04/08/25 Interval history: Events noted Had dialysis yesterday Physical Exam 2 Vital Signs: Vital Signs: Last Vital Signs Temp 98.6 F 04/08/25 13:32 Pulse 84 04/08/25 13:32 Resp 18 04/08/25 13:32 BP 133/55 L 04/08/25 13:32 Pulse Ox 98 04/08/25 13:32 O2 Del Method Room Air 04/08/25 13:32 O2 Flow Rate 2 04/04/25 17:52 BMI result Body Mass Index 34.3 Comfortable Neck supple no JVD. Lungs entry equal no rales. Heart S1-S2 heard no gallop or rub. Abdomen soft nontender. Neuro alert awake oriented. No asterixis. Extremities no edema. Objective Data Labs 04/08/25 05:53 04/08/25 05:53 Labs: Laboratory Results - last 24 hr 04/07/25 04/07/25 04/07/25 16:32 16:40 20:09 WBC RBC Hgb Hct MCV MCH MCHC RDW Plt Count MPV Immature Gran % (Auto) Neut % (Auto) Lymph % (Auto) [place] % (Auto) Eos % (Auto) Baso % (Auto) Lymph # (Auto) [place] # (Auto) Eos # (Auto) Baso # (Auto) Abs Immat Gran (auto) Absolute Neuts (auto) Absolute Nucleated RBC Nucleated RBC % (auto) Sodium Potassium Chloride Carbon Dioxide Anion Gap BUN Creatinine Estim Creat Clear Calc Estimated GFR POC Glucose 169 H 111 Random Glucose Calcium Magnesium Total Bilirubin AST ALT Alkaline Phosphatase Total Protein Albumin Hep Bs Antigen Negative Hep Bs Antibody REACTIVE Hep B Core Total Ab Nonreactive 04/08/25 04/08/25 04/08/25 05:53 07:37 11:38 WBC 3.7 L RBC 3.72 L Hgb 11.0 L Hct 33.6 L MCV 90.3 MCH 29.6 MCHC 32.7 RDW 14.4 Plt Count 167 MPV 10.4 Immature Gran % (Auto) 0.3 Neut % (Auto) 37.0 L Lymph % (Auto) 37.5 [place] % (Auto) 16.8 H Eos % (Auto) 7.6 H Baso % (Auto) 0.8 Lymph # (Auto) 1.4 [place] # (Auto) 0.6 Eos # (Auto) 0.3 Baso # (Auto) 0.0 Abs Immat Gran (auto) 0.01 Absolute Neuts (auto) 1.4 L Absolute Nucleated RBC 0.000 Nucleated RBC % (auto) 0.0 Sodium 137 Potassium 3.9 Chloride 97 Carbon Dioxide 28 Anion Gap 16 BUN 33 H Creatinine 8.45 H* Estim Creat Clear Calc 5.9 Estimated GFR 5 POC Glucose 134 H 100 Random Glucose 107 Calcium 8.9 Magnesium 2.3 Total Bilirubin 0.5 AST 21 ALT < 6 Alkaline Phosphatase 58 Total Protein 6.7 Albumin 3.6 Hep Bs Antigen Hep Bs Antibody Hep B Core Total Ab Microbiology Microbiology Results: Microbiology 04/03/25 11:10 Blood - Venous Blood Culture - Final No growth after 5 days. 04/03/25 11:10 Blood - Venous Blood Culture - Final No growth after 5 days. Procedures Date of Service Date of Service: 04/08/25 Assessment & Plan Assessment and plan (1) ESRD (end stage renal disease) on dialysis: Status: Acute Plan No s/s of uremia Volume status OK Usually gets dialysis Monday. Due to holiday schedule he will get his dialysis tomorrow/Monday and the next scheduled dialysis will be on Monday in his chronic dialysis clinic S/p Cholecystectomy Time Spent With Patient Time: Total time managing care of this patient today ____ minutes. Progress Note: Quality Stroke Does the patient have a stroke diagnosis?: No
[2025-04-08 15:54] VITALS: BP 131/62; PULSE 81; RESP 18; TEMP 36.2; O2SAT 96
[2025-04-08 16:28] LABS: Glucose, Whole Blood 154 mg/dL (60-115)
[2025-04-08 20:00] VITALS: BP 119/56; PULSE 84; RESP 18; TEMP 36.8; O2SAT 95
[2025-04-08 20:58] LABS: Glucose, Whole Blood 165 mg/dL (60-115)
[2025-04-08 23:31] VITALS: BP 133/61; PULSE 79; RESP 18; TEMP 36.9; O2SAT 97
[2025-04-09 03:49] VITALS: BP 136/63; PULSE 81; RESP 18; TEMP 37.1; O2SAT 95
[2025-04-09 06:04] LABS: MANUAL DIFF FLAG NO
[2025-04-09 06:07] LABS: Hematocrit 32.9 % (37.0-47.0); Hemoglobin 10.8 g/dl (12.0-16.0); Imm Gran Abs Auto 0.01 X10*3/uL (0.00-0.03); Imm Gran Pct Auto 0.2 % (0.0-0.4); Lymphocytes Absolute Auto 1.4 X10*3/uL (1.2-4.9); Mean Corpuscular HGB Conc 32.8 g/dl (31.0-35.0); Mean Corpuscular Hemoglobin 29.5 pg (27.0-33.0); Mean Corpuscular Volume 89.9 fL (80.0-98.0); NRBC Abs Auto 0.000 X10*3/uL (0.0-0.012); NRBC Pct Auto 0.0 /100WBC (0.0-0.2); Platelet Count 164 X10*3/uL (160-400); Red Blood Count 3.66 X10*6/uL (4.20-5.50); White Blood Count 4.1 X10*3/uL (4.8-10.8)
[2025-04-09 06:42] LABS: Alanine Aminotransferase < 6 U/L (0-31); Albumin Level 3.5 g/dL (3.5-5.0); Alkaline Phosphatase 56 U/L (39-117); Anion Gap 16 (12-20); Aspartate Amino Transferase 19 U/L (5-31); Blood Urea Nitrogen 51 mg/dL (9-16); Calcium 9.3 mg/dL (8.4-10.2); Carbon Dioxide 30 mmol/L (22-29); Chloride 94 mmol/L (96-108); Creatinine Clr Calc Pharmacy 4.4; Estimated Glomerular Filt Rate 3; Magnesium 2.3 mg/dL (1.6-2.6); Potassium 4.3 mmol/L (3.3-5.1); Sodium 136 mmol/L (135-145); Total Protein 6.6 g/dL (6.5-8.0)
[2025-04-09 07:21] LABS: Glucose, Whole Blood 127 mg/dL (60-115)
--- NOTE | 2025-04-09 07:41 | P.DS_ITS ---
DS: Providers Provider Date of Service: 04/09/25 Date of admission: 04/03/25 12:37 Date of discharge: 04/09/25 Primary care physician: Kecia Castillo NP Consults: 04/03/25 12:32 Consult to Nephrology Routine Consulting Provider: [facility] Reason for consultation: ESRD on HD Stefanya Has provider been notified: No 04/03/25 12:37 Consult to General Surgery Routine Consulting Provider: [facility] Reason for consultation: acute cholecystitis Has provider been notified: Yes DS: Diagnosis Discharge Diagnosis (1) ESRD (end stage renal disease) on dialysis: Status: Acute DS: Summary Hospital Course Hospital Course: Per H&P This is a 79-year-old female with a history of ESRD on hemodialysis who presents to the emergency department with abdominal pain. The patient had last presented to this hospital on 01/23/2025. At that time she was admitted to the hospital for evaluation of weakness and was found to have a fever and was treated for UTI and pneumonia. That time choledocholithiasis was a concern but was ruled out by MRCP. She was discharged on January 29 to the SNF and she has a remained at the facility since discharge. She reports over the past 1 week she has had right-sided abdominal pain. Last evening she began having associated nausea and vomiting which prompted her to come to the emergency department for evaluation. Today in the emergency department her LFTs were within normal limits but imaging was concerning for acute cholecystitis. She was evaluated by General surgery who felt she should be admitted to the medical service for conservative management. In the emergency department she was treated with IV antibiotics and required IV narcotics for adequate pain control. She continues to have persistent abdominal pain at this time. She denies any associated fever or chills. She has not had any diarrhea. Hospital course: Acute cholecystitis s/p cholecystectomy Postop day 5 cholecystectomy, advanced diet Hep B results pending prior to acceptance - Ab -ve End-stage renal disease on [facility], received hemodialysis today ([facility] due to [facility] Continue hemodialysis-due to holiday schedule her next hemodialysis sessions is on Monday, continue phosphate binders Diabetes Continue home meds Hypertension Continue home med DVT prophylaxis with heparin subQ while inpatient Full code Patient was evaluated by PT recommended short-term rehab and is being discharged the same We have found a place that can accommodate her hemodialysis session which will be next Monday Time spent discussing smoking cessation with patient: more than 10 minutes Time Attestation Discharge Coordination Time (in mins): Forty-five Quality: Safe Use of Opioids Does Pt have an Active Cancer Diagnosis on the Problem List?: No Quality: Stroke Does the patient have a stroke diagnosis?: No Physical Exam Exam: Exam: General: AOx3, no acute distress, resting on chair , morbid obesity Abd: Incision sites - C/D/I Resp: CTA bilaterally CVS: S1, S2, RRR GI: +BS, NT, no distention Neuro: Motor grossly intact bilaterally Vital Signs: Vital Signs: Last Vital Signs Temp 98.7 F 04/09/25 03:49 Pulse 81 04/09/25 03:49 Resp 18 04/09/25 03:49 BP 136/63 04/09/25 03:49 Pulse Ox 95 04/09/25 03:49 O2 Del Method Room Air 04/09/25 03:49 O2 Flow Rate 2 04/04/25 17:52 BMI result Body Mass Index 34.3 DS: Data Data Completed and Pending Completed studies during hospitalization [Text1]: Pending at discharge 04/04/25 16:11 Surgical [PTH] Routine Procedures Performance of Urinary Filtration, Intermittent, Less than 6 Hours Per Day (01/23/25) Labs on day of discharge: Laboratory Results - last 24 hr 04/08/25 04/08/25 04/08/25 07:37 11:38 16:21 WBC RBC Hgb Hct MCV MCH MCHC RDW Plt Count MPV Immature Gran % (Auto) Neut % (Auto) Lymph % (Auto) [place] % (Auto) Eos % (Auto) Baso % (Auto) Lymph # (Auto) [place] # (Auto) Eos # (Auto) Baso # (Auto) Abs Immat Gran (auto) Absolute Neuts (auto) Absolute Nucleated RBC Nucleated RBC % (auto) Sodium Potassium Chloride Carbon Dioxide Anion Gap BUN Creatinine Estim Creat Clear Calc Estimated GFR POC Glucose 134 H 100 154 H Random Glucose Calcium Magnesium Total Bilirubin AST ALT Alkaline Phosphatase Total Protein Albumin 04/08/25 04/09/25 04/09/25 20:10 05:02 07:16 WBC 4.1 L RBC 3.66 L Hgb 10.8 L Hct 32.9 L MCV 89.9 MCH 29.5 MCHC 32.8 RDW 14.1 Plt Count 164 MPV 10.4 Immature Gran % (Auto) 0.2 Neut % (Auto) 40.3 L Lymph % (Auto) 33.3 [place] % (Auto) 18.2 H Eos % (Auto) 7.3 H Baso % (Auto) 0.7 Lymph # (Auto) 1.4 [place] # (Auto) 0.8 Eos # (Auto) 0.3 Baso # (Auto) 0.0 Abs Immat Gran (auto) 0.01 Absolute Neuts (auto) 1.7 L Absolute Nucleated RBC 0.000 Nucleated RBC % (auto) 0.0 Sodium 136 Potassium 4.3 Chloride 94 L Carbon Dioxide 30 H Anion Gap 16 BUN 51 H Creatinine 11.15 H* Estim Creat Clear Calc 4.4 Estimated GFR 3 POC Glucose 165 H 127 H Random Glucose 148 H Calcium 9.3 Magnesium 2.3 Total Bilirubin 0.4 AST 19 ALT < 6 Alkaline Phosphatase 56 Total Protein 6.6 Albumin 3.5 Discharge Plan Discharge Anticipated Discharge Date/Time: 04/07/25 14:00 Patient Disposition: Xfer SNF Discharge Diagnosis: s/p laparoscopic cholecystectomy Referrals: [facility] [Other] - 1 Week Jayce Chacon MD [Physician, General Surgery] - 1 Week [place]-Teresa Kinney NP [Nurse Practitioner, Nursing] - 1 Week Discharge Medications: Continued acetaminophen 325 mg Tablet 650 mg PO Q4H PRN (Reason: Pain/Fever) acetaminophen 650 mg Suppository 650 mg IA Q4H PRN (Reason: Pain/Fever) meclizine 12.5 mg Tablet 12.5 mg PO Q6H PRN (Reason: Dizziness) magnesium hydroxide [Milk of Magnesia] 400 mg/5 mL Suspension 5 ml PO DAILY PRN (Reason: Constipation) Rx Instructions: No Bm in 3 days. bisacodyl 10 mg Suppository 10 mg IA DAILY PRN (Reason: Constipation) Rx Instructions: If no result from [facility]. Fleet Enema 19-7 gram/118 mL Enema 118 ml IA DAILY PRN (Reason: Constipation) Rx Instructions: If no result from Bisacodyl. insulin lispro [Humalog U-100 Insulin] 100 unit/mL Solution 1 sliding scale dose SUBCUT QIDACHS glucagon 1 mg Recon Soln 1 mg SUBCUT Q20M PRN (Reason: BS less then 70) Rx Instructions: until target blood sugar attained polyethylene glycol 3350 [Miralax] 17 gram/dose Powder 17 g PO DAILY naloxone [Narcan] 4 mg/actuation [place],Non-Aerosol 4 mg INTRANASAL Q3M PRN (Reason: Opioid Overdose) Rx Instructions: spray 1 dose into ONE nostril; alternate nostrils w each dose until help arrives atorvastatin 20 mg tablet 20 mg PO DAILY clopidogrel 75 mg tablet 75 mg PO DAILY famotidine 20 mg tablet 20 mg PO BEDTIME gabapentin 100 mg capsule 100 mg PO BID losartan 100 mg tablet 100 mg PO DAILY sevelamer carbonate 2.4 gram powder in packet 2.4 g PO TIDWM aspirin 81 mg Tablet,Chewable 81 mg PO DAILY Trulicity 4.5 mg/0.5 mL Pen Injector 4.5 mg SUBCUT QWEEK Discharge Orders: Discharge Order (Routine); Ordered 04/09/25 Ordered By: Radha Cox Diet: Low fat, low cholesterol Activity on Discharge: No heavy lifting Stand Alone Forms: Patient Portal Discharge page Print Language: Citizen Of [place] Activity Restrictions/Additional Instructions: If the incision area is tender, you may apply an ice pack for short intervals (No more than 20 minutes on, followed by at least 20 minutes off). Do not apply heat. Do not use creams, lotions, or topical antibiotics. Ok to shower. Remove clear dressings 3 days following your procedure. You have steri strips (small white strips) covering your incision- these will fall off ~1 week. No heavy lifting (>10lbs) or strenuous activity! Take Tylenol Extra-strength 1-2 tabs every 6 hours for the first day, then as needed. Oxycodone every 6-8 hours as needed for pain. Colace 100 mg every day as needed for constipation. Follow up in office with Dr. Chacon in 1-2 weeks. ([phone]) Call Your Doctor If: -Your temperature exceeds 101.5? F -You experience excessive pain or swelling -You have an unexpected reaction to medication -You have excessive bleeding -You experience continued vomiting/nausea -Your incision begins to separate -Your incision shows signs of infection such as increased redness, swelling, excessive pain, drainage (light blood or clear fluid is normal) or heat Care Plan Goals: return to baseline Health Concerns: ERSD on dialysis Post op pain T2DM HTN Plan of Treatment: DC to SNF follow up in the office in 1-2 weeks Assessment: doing well
--- NOTE | 2025-04-09 09:11 | PM.PNNEP ---
Subjective Subjective Date of Service: 04/09/25 Interval history: Events noted. Seen on HD. D/W HD [facility]. Romy for rehab today Physical Exam Vital Signs: Vital Signs: Last Vital Signs Temp 98.7 F 04/09/25 03:49 Pulse 81 04/09/25 03:49 Resp 18 04/09/25 03:49 BP 136/63 04/09/25 03:49 Pulse Ox 95 04/09/25 03:49 O2 Del Method Room Air 04/09/25 03:49 O2 Flow Rate 2 04/04/25 17:52 BMI result Body Mass Index 34.3 Const: General: comfortable and no acute distress Orientation/consciousness: patient oriented x3 HEENT: Head: Yes normocephalic Mouth: Normal oral and palatal mucosa present Eyes: EOM: EOMs intact bilaterally Neck: Neck: Yes supple Resp: Auscultation: clear to auscultation bilaterally Cardio: Jugular venous distension: no JVD Rate: regular rate GI: Palpation (GI): Soft to palpation Auscultation: normal bowel sounds : General: Yes no CVA tenderness Back/Spine/Pelvis: Back: no CVA tenderness Skin: General skin exam: no rashes or lesions noted Neuro: General: patient oriented x3 and moves all extremities Objective Data Labs 04/09/25 05:02 04/09/25 05:02 Labs: Laboratory Results - last 24 hr 04/08/25 04/08/25 04/08/25 11:38 16:21 20:10 WBC RBC Hgb Hct MCV MCH MCHC RDW Plt Count MPV Immature Gran % (Auto) Neut % (Auto) Lymph % (Auto) [place] % (Auto) Eos % (Auto) Baso % (Auto) Lymph # (Auto) [place] # (Auto) Eos # (Auto) Baso # (Auto) Abs Immat Gran (auto) Absolute Neuts (auto) Absolute Nucleated RBC Nucleated RBC % (auto) Sodium Potassium Chloride Carbon Dioxide Anion Gap BUN Creatinine Estim Creat Clear Calc Estimated GFR POC Glucose 100 154 H 165 H Random Glucose Calcium Magnesium Total Bilirubin AST ALT Alkaline Phosphatase Total Protein Albumin 04/09/25 04/09/25 05:02 07:16 WBC 4.1 L RBC 3.66 L Hgb 10.8 L Hct 32.9 L MCV 89.9 MCH 29.5 MCHC 32.8 RDW 14.1 Plt Count 164 MPV 10.4 Immature Gran % (Auto) 0.2 Neut % (Auto) 40.3 L Lymph % (Auto) 33.3 [place] % (Auto) 18.2 H Eos % (Auto) 7.3 H Baso % (Auto) 0.7 Lymph # (Auto) 1.4 [place] # (Auto) 0.8 Eos # (Auto) 0.3 Baso # (Auto) 0.0 Abs Immat Gran (auto) 0.01 Absolute Neuts (auto) 1.7 L Absolute Nucleated RBC 0.000 Nucleated RBC % (auto) 0.0 Sodium 136 Potassium 4.3 Chloride 94 L Carbon Dioxide 30 H Anion Gap 16 BUN 51 H Creatinine 11.15 H* Estim Creat Clear Calc 4.4 Estimated GFR 3 POC Glucose 127 H Random Glucose 148 H Calcium 9.3 Magnesium 2.3 Total Bilirubin 0.4 AST 19 ALT < 6 Alkaline Phosphatase 56 Total Protein 6.6 Albumin 3.5 Microbiology Microbiology Results: Microbiology 04/03/25 11:10 Blood - Venous Blood Culture - Final No growth after 5 days. 04/03/25 11:10 Blood - Venous Blood Culture - Final No growth after 5 days. Procedures Date of Service Date of Service: 04/09/25 Assessment & Plan Assessment and plan (1) HTN (hypertension): Status: Acute (2) ESRD (end stage renal disease) on dialysis: Status: Acute (3) Anemia in chronic kidney disease, on chronic dialysis: Status: Acute Plan Seen on HD. Tolerating HD well; Volume status OK Usually gets dialysis Monday. Due to holiday schedule, next scheduled dialysis will be on Monday Progress Note: Quality Stroke Does the patient have a stroke diagnosis?: No
[2025-04-09] MEDS: Sevelamer Carbonate Powder 800 MG POWD.PACK 2400 MG PO ×3 (09:32→16:08)
[2025-04-09] MEDS: 0.9 % Sodium Chloride Flush 3 ML SYRINGE IVFLUSH (09:33)
[2025-04-09 11:07] VITALS: BP 105/52; PULSE 97; RESP 17; TEMP 36.6; O2SAT 98
[2025-04-09 11:18] LABS: Glucose, Whole Blood 195 mg/dL (60-115)
[2025-04-09 15:24] VITALS: BP 114/56; PULSE 87; RESP 15; TEMP 36.3; O2SAT 97
[2025-04-09 16:09] LABS: Glucose, Whole Blood 183 mg/dL (60-115)
[2025-04-09 17:16] VITALS: BP 116/60; PULSE 72; RESP 17; TEMP 36.6; O2SAT 98
[2025-04-15 01:34] LABS: FIB-ALT 11 U/L (6-29); FIB-Alpha-2-Macroglobulin 219 mg/dL (106-279); FIB-Apolipoprotein A1 134 mg/dL (101-198); FIB-GGT 9 U/L (3-65); FIB-Haptoglobin 269 mg/dL (43-212); FIB-Total Bilirubin 0.3 mg/dL (0.2-1.2); Liver Fibrosis Score 0.15; Liver Fibrosis Stage F0; Nec Inflam Act Grade A0; Nec Inflam Act Score 0.02
== END 2025-04-09 17:16 | disposition skilled nursing facility (03) | DRG 417 ==
LOC: HO.ED 06:28 → HO.EDOVER 12:44 → HO.S3 13:45
PROVIDERS: Internal Medicine; Surgery; Admitting Provider Physician Assistant Medical; Emergency Provider Emergency Medicine; PCP Nurse Practitioner; Visit Provider Student in an Organized Health Care Education/Training Program
PROC: 0FT44ZZ Resection of Gallbladder, Percutaneous Endoscopic Approach (ICD-10-PCS; CPT 47562; principal; 2025-04-04 14:00)
DX: K81.0 Acute cholecystitis (principal); N18.6 End stage renal disease; I12.0 Hypertensive chronic kidney disease with stage 5 chronic kidney disease or end stage renal disease; E11.22 Type 2 diabetes mellitus with diabetic chronic kidney disease; Z99.2 Dependence on renal dialysis; F17.210 Nicotine dependence, cigarettes, uncomplicated; Z71.6 Tobacco abuse counseling; D63.1 Anemia in chronic kidney disease; E11.65 Type 2 diabetes mellitus with hyperglycemia; E78.5 Hyperlipidemia, unspecified; N25.0 Renal osteodystrophy; E66.01 Morbid (severe) obesity due to excess calories; Z68.34 Body mass index [BMI] 34.0-34.9, adult; Z20.822 Contact with and (suspected) exposure to COVID-19; Z85.3 Personal history of malignant neoplasm of breast; Z79.02 Long term (current) use of antithrombotics/antiplatelets; Z79.82 Long term (current) use of aspirin; Z79.85 Long-term (current) use of injectable non-insulin antidiabetic drugs; Z79.899 Other long term (current) drug therapy
CPT/HCPCS: 36415; 71045; 74176; 76705; 80048; 80053; 80076; 81596; 82947; 83605; 83690; 83735; 84484; 85025; 85027; 86140; 86692; 86704; 86706; 86707; 87040; 87340; 87637; 88304; 90999; 93005; 97162; 99285; J1596; J1644; J2003; J2270; J2405; J2543; J2704; J2795; J3010

== ENCOUNTER → 2025-04-03 06:18 | Outpatient (BNV) | payer MEDICARE, SELFPAY | PROVIDERS: Admitting Provider Physician Assistant Medical; Emergency Provider Emergency Medicine; PCP Nurse Practitioner Family; Visit Provider Internal Medicine | DX: R00.0 Tachycardia, unspecified (principal) | CPT/HCPCS: 93010 ==

== ENCOUNTER → 2025-04-03 06:19 | Outpatient (BNV) | payer MEDICARE, SELFPAY | PROVIDERS: Emergency Provider Emergency Medicine; PCP Nurse Practitioner Family; Visit Provider Radiology Diagnostic Radiology | DX: R10.10 Upper abdominal pain, unspecified (principal); R11.10 Vomiting, unspecified | CPT/HCPCS: 71045; 74176; 76705 ==

== ENCOUNTER → 2025-04-03 12:37 | Outpatient (BNV) | payer MEDICARE, SELFPAY | PROVIDERS: Admitting Provider Physician Assistant Medical; Emergency Provider Emergency Medicine; PCP Nurse Practitioner Family; Visit Provider Internal Medicine | DX: K81.0 Acute cholecystitis (principal) | CPT/HCPCS: 99232; 99233 ==

== ENCOUNTER → 2025-04-03 12:37 | Outpatient (BNV) | payer MEDICARE, SELFPAY | PROVIDERS: Admitting Provider Physician Assistant Medical; Emergency Provider Emergency Medicine; PCP Nurse Practitioner; Visit Provider Internal Medicine Hypertension Specialist | DX: N18.6 End stage renal disease (principal); Z99.2 Dependence on renal dialysis | CPT/HCPCS: 90935 ==

== ENCOUNTER → 2025-04-03 12:37 | Outpatient (BNV) | payer MEDICARE, SELFPAY | PROVIDERS: Admitting Provider Physician Assistant Medical; Emergency Provider Emergency Medicine; PCP Nurse Practitioner Family | DX: K81.9 Cholecystitis, unspecified (principal) | CPT/HCPCS: 99222 ==

== ENCOUNTER → 2025-04-03 12:37 | Outpatient (BNV) | payer MEDICARE, SELFPAY | PROVIDERS: Admitting Provider Physician Assistant Medical; Emergency Provider Emergency Medicine; PCP Nurse Practitioner Family; Visit Provider Internal Medicine Critical Care Medicine | DX: I12.0 Hypertensive chronic kidney disease with stage 5 chronic kidney disease or end stage renal disease (principal); N18.6 End stage renal disease; Z99.2 Dependence on renal dialysis; D64.9 Anemia, unspecified | CPT/HCPCS: 99223 ==

== ENCOUNTER 2025-04-23 08:54 | Outpatient (AMB) | payer MEDICARE, SELFPAY ==
--- NOTE | 2025-04-23 09:02 | MHC.OFFVIS ---
Vital Signs 04/23/25 09:03 Height 5 ft 4 in Weight 200 lb BMI 34.3 BP 144/63 H Blood Pressure Location Rt radial Position Sitting Pulse 114 H Intake Visit Reasons: s/p cholecystectomy Intake Note: Patient here s/p laparoscopic cholecystectomy. Patient c/o: reports incisions healing well. Denies oozing, bleeding. Normal BM. 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 Accompanied by: daughter Deborah Allergies No Known Allergies Allergy (Verified 04/23/25 09:10) Medication List - Last Reconciled 04/23/25 by Jayce Chacon MD acetaminophen 650 mg PO Q4H PRN acetaminophen 650 mg LA Q4H PRN aspirin 81 mg PO DAILY atorvastatin 20 mg PO DAILY clopidogrel 75 mg PO DAILY dulaglutide (Trulicity) 4.5 mg subcut QWEEK famotidine 20 mg PO BEDTIME gabapentin 100 mg PO BID glucagon 1 mg subcut Q20M PRN insulin lispro (Humalog U-100 Insulin) 1 sliding scale dose subcut QIDACHS losartan 100 mg PO DAILY magnesium hydroxide (Milk of Magnesia) 5 mL PO DAILY PRN meclizine 12.5 mg PO Q6H PRN naloxone 4 mg/actuation (Narcan) 4 mg intranasal Q3M PRN polyethylene glycol 3350 (Miralax) 17 grams PO DAILY sevelamer carbonate 2.4 grams PO TIDWM sodium phosphates 19-7 gram/118 mL (Fleet Enema) 118 mL [place] DAILY PRN HPI Comments Details: 79-year-old lady presents today for postop follow-up after undergoing laparoscopic cholecystectomy on 04/04/2025 she is here today with her daughter. She reports she is doing well. She denies any abdominal pain fevers chills nausea or vomiting. She reports normal bowel and bladder habits. She lives at a facility that confirms the same. [facility] Medical History Tobacco use disorder History of breast cancer ESRD (end stage renal disease) on dialysis T2DM (type 2 diabetes mellitus) HLD (hyperlipidemia) HTN (hypertension) Surgical History S/P laparoscopic cholecystectomy (04/04/25) Social History (Reviewed 04/23/25 @ 09:11 by BRANDON Trinidad Household Members: Children Housing: Retirement Housing Other:: short term rehab Are you a primary memory care program director to a significant other at home: No Do you presently have visiting nurse or other home services: No Comment: counts correct Patient Tobacco Use Status: Current someday Tobacco user Tobacco use type: Cigarette Second Hand Smoke Exposure: No Advance Directives Date on File: 01/28/25 service: No Review of Systems Const All systems reviewed & are unremarkable except as noted in HPI and below Physical Exam Vital Signs: Last Vital Signs Pulse 114 H 04/23/25 09:03 BP 144/63 H 04/23/25 09:03 BMI result Body Mass Index 34.3 Const General: ill appearing Nutritional Appearance: obese morbidly obese Limitations: ambulation with walker HEENT Head: Yes normal to inspection Eyes General: appearance normal, both eyes and all related structures Sclerae: sclerae normal Pupils: Equal, round and reactive pupils present EOM: EOMs intact bilaterally Neck Neck: Yes normal visual inspection Chest Chest palpation & inspection: normal inspection of the chest Resp Effort & Inspection: normal respiratory effort and able to speak in complete sentences Cardio Rate: regular rate Rhythm: regular rhythm GI Other: Soft, morbidly obese nontender nondistended incisions are healing well with no erythema edema or discharge. Neuro Cranial nerves: Yes Equal, round and reactive pupils present Assessment & Plan Assessment & Plan (1) S/P laparoscopic cholecystectomy: Onset Date: 04/04/25 Code(s): Z90.49 - Acquired absence of other specified parts of digestive tract Category: Medical Plan: I told the patient I felt she is doing well after her laparoscopic cholecystectomy. She agreed. I told her and her daughter that her diet and activity can be as tolerated and that her follow up can be on a PRN basis. They both said they were happy with that plan. Coding Level of Care Code Global (50407) Diagnoses S/P laparoscopic cholecystectomy Z90.49 Time Spent (min) 20 Comment Time spent in patient visit, record review and coordination of care
[2025-04-23 09:03] VITALS: BP 144/63; PULSE 114; BMI 34.3
== END 2025-04-23 09:16 | disposition home or self-care (01) ==
LOC: HO.HGS 08:54
PROVIDERS: PCP Nurse Practitioner; Visit Provider Surgery
DX: Z90.49 Acquired absence of other specified parts of digestive tract (principal)
CPT/HCPCS: 99024

== ENCOUNTER → 2025-04-23 08:54 | Outpatient (BNVA) | payer MEDICARE, SELFPAY | PROVIDERS: PCP Nurse Practitioner; Visit Provider Surgery | DX: Z48.815 Encounter for surgical aftercare following surgery on the digestive system (principal); Z90.49 Acquired absence of other specified parts of digestive tract | CPT/HCPCS: 99212 ==